=== PATIENT | female | born 1955 | race Caucasian/White ===

== ENCOUNTER 2017-01-11 12:14 | Inpatient (IN) | payer MEDICARE, OTHER ==
[2017-01-11] MEDS ORDERED: SODIUM CHLORIDE 0.9% 1,000 ML IV STA (12:22)
[2017-01-11] MEDS ORDERED: methylPREDNISolone SOD SUCCI 125 MG/2 ML VIAL IV STA (12:22)
[2017-01-11] MEDS ORDERED: ALBUTEROL NEBULIZED 2.5 MG/3 ML INHALATION STA (12:22)
[2017-01-11] MEDS ORDERED: IPRATROPIUM 0.5 MG/2.5 ML NEBU INHALATION STA (12:22)
--- NOTE | 2017-01-11 12:42 | ED ---
General Adult HPI - General Chief complaint: Shortness of Breath Stated complaint: JENNA Time Seen by Provider: 01/11/17 12:22 Source: patient, RN notes reviewed, old records reviewed Mode of arrival: ambulatory Limitations: no limitations - History of Present Illness Initial comments: This is a 61-year-old female here for evaluation of shortness of breath, shows with cough and congestion, positive history of asthma with no recent admissions to travel history no chest pain. Patient states she was having some shortness was last few days worsened today at [employer]ism with swelling of incense. Patient again denies any sick contacts, no travel history - Related Data Home Medications Medication Instructions Recorded Confirmed Aspirin EC [Ecotrin Low Dose] 81 mg PO DAILY 01/11/17 01/11/17 Glucerna Shake 1 can PO TID 01/11/17 01/11/17 Insulin Aspart Protam & Aspart See Protocol SQ ACHS 01/11/17 01/11/17 [NovoLOG MIX 70-30 Flexpen] Insulin NPH Hum/Reg Insulin Hm See Protocol SQ ACHS 01/11/17 01/11/17 [humuLIN 70/30 Kwikpen] Losartan [Cozaar] 50 mg PO DAILY 01/11/17 01/11/17 Allergies Allergy/AdvReac Type Severity Reaction Status Date / Time No Known Allergies Allergy Verified 01/11/17 13:02 Review of Systems ROS Statement: Those systems with pertinent positive or pertinent negative responses have been documented in the HPI. ROS Other: All systems not noted in ROS Statement are negative. Past Medical History Past Medical History: Asthma, Diabetes Mellitus Additional Past Medical History / Comment(s): kidney failure History of Any Multi-Drug Resistant Organisms: None Reported Past Surgical History: Section, Cholecystectomy Past Psychological History: No Psychological Hx Reported Smoking Status: Never smoker Past Alcohol Use History: None Reported Past Drug Use History: None Reported General Exam Limitations: no limitations General appearance: alert, anxious, in distress, obese Head exam: Present: atraumatic, normocephalic, normal inspection Eye exam: Present: normal appearance, PERRL, EOMI. Absent: scleral icterus, conjunctival injection, periorbital swelling ENT exam: Present: normal exam, mucous membranes moist Neck exam: Present: normal inspection. Absent: tenderness, meningismus, lymphadenopathy Respiratory exam: Present: wheezes, accessory muscle use, decreased breath sounds, prolonged expiratory. Absent: respiratory distress, rales, rhonchi, stridor Cardiovascular Exam: Present: regular rate, normal rhythm, normal heart sounds. Absent: systolic murmur, diastolic murmur, rubs, gallop, clicks GI/Abdominal exam: Present: soft, normal bowel sounds. Absent: distended, tenderness, guarding, rebound, rigid Extremities exam: Present: normal inspection, full ROM, normal capillary refill. Absent: tenderness, pedal edema, joint swelling, calf tenderness Back exam: Present: normal inspection Neurological exam: Present: alert, oriented X3, CN II-XII intact Psychiatric exam: Present: normal affect, normal mood Skin exam: Present: warm, dry, intact, normal color. Absent: rash Course Vital Signs 01/11/17 01/11/17 01/11/17 12:15 12:44 12:51 Temperature 99.3 F Pulse Rate 80 85 Respiratory 18 22 Rate Blood Pressure 137/60 O2 Sat by Pulse 92 L Oximetry 01/11/17 01/11/17 13:07 13:45 Temperature Pulse Rate 79 83 Respiratory 18 Rate Blood Pressure 128/60 O2 Sat by Pulse 95 Oximetry - Reevaluation(s) Reevaluation #1: 01/11/17 15:15 Patient had a prolonged breathing treatment, then ambulated to bathroom with oxygen dropping down to 84% is not on home O2 EKG Findings - EKG Comments: EKG Findings:: EKG shows normal sinus rhythm at 76, HI 156, QRS 86, QTC 420 Medical Decision Making - Medical Decision Making 61 female to ED co shortness of breath and severe exertional dyspnea. Hypoxic respiratory failure secondary to COPD. And asthma. Patient will be admitted, x -rays negative for pneumonia - Lab Data Result diagrams: 01/11/17 12:35 01/11/17 12:35 Lab Results 01/11/17 01/11/17 01/11/17 Range/Units 12:35 12:35 12:35 WBC 10.9 H (3.8-10.6) k/uL RBC 4.30 (3.80-5.40) m/uL Hgb 13.4 (11.4-16.0) gm/dL Hct 40.0 (34.0-46.0) % MCV 93.0 (80.0-100.0) fL MCH 31.1 (25.0-35.0) pg MCHC 33.5 (31.0-37.0) g/dL RDW 14.3 (11.5-15.5) % Plt Count 136 L (150-450) k/uL Neutrophils % 75 % Lymphocytes % 15 % Monocytes % 5 % Eosinophils % 3 % Basophils % 1 % Neutrophils # 8.1 H (1.3-7.7) k/uL Lymphocytes # 1.6 (1.0-4.8) k/uL Monocytes # 0.5 (0-1.0) k/uL Eosinophils # 0.3 (0-0.7) k/uL Basophils # 0.1 (0-0.2) k/uL PT (9.0-12.0) sec INR (<1.1) APTT (22.0-30.0) sec Sodium 135 L (137-145) mmol/L Potassium 4.0 (3.5-5.1) mmol/L Chloride 100 (98-107) mmol/L Carbon Dioxide 24 (22-30) mmol/L Anion Gap 11 mmol/L BUN 16 (7-17) mg/dL Creatinine 0.63 (0.52-1.04) mg/dL Est GFR (MDRD) Af Amer >60 (>60 ml/min/1.73 sqM) Est GFR (MDRD) Non-Af >60 (>60 ml/min/1.73 sqM) Glucose 145 H (74-99) mg/dL Calcium 9.3 (8.4-10.2) mg/dL Magnesium 2.2 (1.6-2.3) mg/dL Total Bilirubin 1.1 (0.2-1.3) mg/dL AST 33 (14-36) U/L ALT 29 (9-52) U/L Alkaline Phosphatase 115 (38-126) U/L Total Creatine Kinase 162 H (30-135) U/L CK-MB (CK-2) 0.7 (0.0-2.4) ng/mL CK-MB (CK-2) Rel Index 0.4 Troponin I <0.012 (0.000-0.034) ng/mL NT-Pro-B Natriuret Pep pg/mL Total Protein 7.0 (6.3-8.2) g/dL Albumin 3.6 (3.5-5.0) g/dL 01/11/17 01/11/17 Range/Units 12:35 12:35 WBC (3.8-10.6) k/uL RBC (3.80-5.40) m/uL Hgb (11.4-16.0) gm/dL Hct (34.0-46.0) % MCV (80.0-100.0) fL MCH (25.0-35.0) pg MCHC (31.0-37.0) g/dL RDW (11.5-15.5) % Plt Count (150-450) k/uL Neutrophils % % Lymphocytes % % Monocytes % % Eosinophils % % Basophils % % Neutrophils # (1.3-7.7) k/uL Lymphocytes # (1.0-4.8) k/uL Monocytes # (0-1.0) k/uL Eosinophils # (0-0.7) k/uL Basophils # (0-0.2) k/uL PT 10.3 (9.0-12.0) sec INR 1.0 (<1.1) APTT 24.4 (22.0-30.0) sec Sodium (137-145) mmol/L Potassium (3.5-5.1) mmol/L Chloride (98-107) mmol/L Carbon Dioxide (22-30) mmol/L Anion Gap mmol/L BUN (7-17) mg/dL Creatinine (0.52-1.04) mg/dL Est GFR (MDRD) Af Amer (>60 ml/min/1.73 sqM) Est GFR (MDRD) Non-Af (>60 ml/min/1.73 sqM) Glucose (74-99) mg/dL Calcium (8.4-10.2) mg/dL Magnesium (1.6-2.3) mg/dL Total Bilirubin (0.2-1.3) mg/dL AST (14-36) U/L ALT (9-52) U/L Alkaline Phosphatase (38-126) U/L Total Creatine Kinase (30-135) U/L CK-MB (CK-2) (0.0-2.4) ng/mL CK-MB (CK-2) Rel Index Troponin I (0.000-0.034) ng/mL NT-Pro-B Natriuret Pep 314 pg/mL Total Protein (6.3-8.2) g/dL Albumin (3.5-5.0) g/dL Critical Care Time Critical Care Time: Yes Total Critical Care Time: 31 Disposition Clinical Impression: Acute exacerbation of chronic obstructive airways disease, Hypoxia Disposition: ADMITTED IP TO THIS HOSP Condition: Fair Referrals: Nadir Marsh MD [Primary Care Provider] - 1-2 days
[2017-01-11 13:09] LABS: Basophils # (A) 0.1 k/uL (0-0.2); Basophils % (A) 1 %; CH 31.1; CHCM 33.7; Eosinophils # (A) 0.3 k/uL (0-0.7); Eosinophils % (A) 3 %; HDW 2.56; HGB 13.4 gm/dL (11.4-16.0); Luc # (Auto) 0.25; Luc % (Auto) 2; Lymphocytes # (A) 1.6 k/uL (1.0-4.8); Lymphocytes % (A) 15 %; MCH 31.1 pg (25.0-35.0); MCHC 33.5 g/dL (31.0-37.0); Mean Platelet Volume 8.5; Monocytes # (A) 0.5 k/uL (0-1.0); Monocytes % (A) 5 %; Neutrophils # (A) 8.1 k/uL (1.3-7.7); Neutrophils % (A) 75 %; RDW 14.3 % (11.5-15.5); WBC 10.9 k/uL (3.8-10.6); WBC (Perox) 10.94
[2017-01-11 13:18] LABS: Partial Thromboplastin Time 24.4 sec (22.0-30.0); Prothrombin Time 10.3 sec (9.0-12.0)
[2017-01-11 13:21] LABS: Creatine Kinase 162 U/L (30-135)
[2017-01-11 13:23] LABS: ALT 29 U/L (9-52); AST 33 U/L (14-36); Alkaline Phosphatase 115 U/L (38-126); Anion Gap 11 mmol/L; Blood Urea Nitrogen 16 mg/dL (7-17); Calcium 9.3 mg/dL (8.4-10.2); Carbon Dioxide 24 mmol/L (22-30); Chloride 100 mmol/L (98-107); Glucose 145 mg/dL (74-99); Magnesium 2.2 mg/dL (1.6-2.3); Non-African American GFR(MDRD) >60 (>60 ml/min/1.73 sqM); Sodium 135 mmol/L (137-145); Total Bilirubin 1.1 mg/dL (0.2-1.3)
[2017-01-11 13:35] LABS: Creatine Kinase MB 0.7 ng/mL (0.0-2.4); Troponin I <0.012 ng/mL (0.000-0.034)
--- NOTE | 2017-01-11 13:44 | XR ---
EXAMINATION TYPE: XR chest 2V DATE OF EXAM: 01/11/2017 1:40 PM COMPARISON: NONE HISTORY: Short of breath TECHNIQUE: Frontal and lateral views of the chest are obtained. FINDINGS: There is no heart failure nor confluent pneumonic infiltrate. There are no hilar masses. C ostophrenic angles are clear. Heart size is normal. There are chest leads. Bony thorax appears intact . There is a small linear density in the anterior lingula left upper lobe. IMPRESSION: Small area of atelectasis in the lingula left upper lobe. Otherwise negative exam. Jody l heart.
[2017-01-11] MEDS: IPRATROPIUM-ALBUTEROL 3 ML NEB INHALATION SCH ×2 (16:10→18:50)
[2017-01-11 16:23] VITALS: BMI 49.8
[2017-01-11 17:18] LABS: Glucose,Whole Blood 252 mg/dL (75-99)
[2017-01-11] MEDS: methylPREDNISolone SOD SUCCI 125 MG/2 ML VIAL IV SCH (17:30)
[2017-01-11] MEDS: SODIUM CHLORIDE 0.9% 1,000 ML IV SCH (17:32)
[2017-01-11] MEDS: INSULIN LISPRO (humaLOG) 300 UNIT/3 ML VIAL SQ SCH ×2 (18:17→22:11)
[2017-01-11] MEDS ORDERED: IPRATROPIUM-ALBUTEROL 3 ML NEB INHALATION PRN (18:53)
[2017-01-11 20:56] LABS: Glucose,Whole Blood 387 mg/dL (75-99)
[2017-01-11] MEDS ORDERED: NON-FORMULARY DRUG (Glucerna Shake 1 CAN) PO SCH (22:00)
[2017-01-12] MEDS: ASPIRIN 81 MG CHEW PO SCH ×2 (02:31→07:37)
[2017-01-12] MEDS: LOSARTAN 50 MG TAB PO SCH ×2 (02:31→07:36)
[2017-01-12] MEDS: methylPREDNISolone SOD SUCCI 125 MG/2 ML VIAL IV SCH ×2 (02:38→06:35)
[2017-01-12 07:41] LABS: Glucose,Whole Blood 408 mg/dL (75-99)
[2017-01-12] MEDS: INSULIN LISPRO (humaLOG) 300 UNIT/3 ML VIAL SQ SCH ×4 (07:57→21:21)
[2017-01-12] MEDS: IPRATROPIUM-ALBUTEROL 3 ML NEB INHALATION SCH ×4 (08:35→20:21)
[2017-01-12] MEDS ORDERED: NICOTINE 21MG/24HR PATCH TRANSDERM SCH (09:00)
--- NOTE | 2017-01-12 09:37 | HP ---
DATE OF ADMISSION: 01/11/2017 CHIEF COMPLAINT: A 61-year-old white female admitted with shortness of breath for the past 3 to 4 days after inhaling incense at mass on , had worsening shortness of breath and chest pressure, relieved with updraft treatments and IV steroids in the emergency room. She was admitted with cough, congestion, and possible pneumonia and chronic obstructive pulmonary disease exacerbation. We got Pulmonology consult with Dr. Todd and recommendations. No travel history. No sick contacts. She has a history of obesity, and diabetes mellitus and she states asthma. MEDICATIONS INCLUDE: 1. Glycerin shakes. 2. Aspirin 81 daily. 3. NovoLog 70/30. 4. KwikPen twice a day. 5. Cozaar 50 daily. ALLERGIES: Negative. REVIEW OF SYSTEMS: 14 point review of systems negative except for as mentioned in HPI. PAST MEDICAL HISTORY: Diabetes mellitus, asthma, obesity, possibly renal failure in the past. Surgeries: Cholecystectomy, . SOCIAL HISTORY: Never smoked. No alcohol. No illicit drugs. PHYSICAL EXAMINATION: A 61-year-old white female with some cough, congestion, shortness of breath, respiratory rate 16 to 18. PULMONARY: Scattered wheeze x4. CARDIOVASCULAR: S1, S2. : No suprapubic tenderness. HEMATOLOGIC: Negative Homans. GI: Soft, nontender. Ophthalmologic: Pupils equal, round and reactive to light and accommodation. Lungs show transmitted upper airway sounds, scattered wheezes x4, scattered rhonchi. HEART: S1, S2. GI: Soft, nontender. EXTREMITIES: No cyanosis, clubbing, or edema. BACK: Normal inspection. NEUROLOGIC: Alert and oriented x3. PSYCHIATRIC: Fair mood and affect. ENDOCRINE: BMI is over 40. Temperature 99.3, pulse 85, respiratory rate 18 to 20, blood pressure 130s/60s, O2 92%, sodium 135. BNP 314. ASSESSMENT: 1. Acute exacerbation of chronic obstructive pulmonary disease/asthma exacerbation, acute hypoxemia. 2. Tracheobronchitis. 3. Obesity. 4. Diabetes mellitus. 5. Acute, respiratory distress. 6. Atypical chest pain resolved with negative troponins and updraft treatments and steroids. PLAN: Continue steroid taper through the IV, albuterol and Atrovent updrafts. Await pulmonary consultation. IV fluid rehydration.
--- NOTE | 2017-01-12 10:04 | P.PN ---
Subjective 61-year-old female being seen on rounds this morning currently sitting up on the edge of the bed respiratory treatment in progress states breathing feels improved. No cough noted. Patient does have a history of asthma. Denies chest pain denies any dizziness or lightheadedness. Did note the blood sugars are elevated this morning suspect due to steroids patients being treated for an acute exacerbation of COPD Objective - Vital Signs Vital signs: Vital Signs Temp 97.3 F L 01/12/17 07:00 Pulse 80 01/12/17 08:43 Resp 16 01/12/17 09:55 BP 130/60 01/12/17 07:00 Pulse Ox 95 01/12/17 08:35 Intake & Output 01/11/17 01/12/17 01/12/17 18:59 06:59 18:59 Weight 140 kg Other: Voiding Method Toilet Toilet # Voids 1 - Exam Physical exam 61-year-old female sitting up and had a the bed pleasant oriented 3 Lungs essentially clear with adequate air movement no wheezing rales or rhonchi no shortness of breath noted Heart S1-S2 audible and regular Abdomen soft nontender extremities no edema - Labs CBC & Chem 7: 01/11/17 12:35 01/11/17 12:35 Labs: Abnormal Lab Results - Last 24 Hours (Table) 01/11/17 01/11/17 01/12/17 Range/Units 17:14 20:39 07:34 POC Glucose (mg/dL) 252 H 387 H 408 H (75-99) mg/dL Assessment and Plan Plan: Impression Present on admission shortness of breath suspect due to an acute exacerbation of COPD Lifelong nonsmoker Morbid obesity BMI 49 Hyperglycemic episodes suspect steroid-induced Tracheal bronchitis Present on admission atypical chest pain with negative cardiac enzymes Plan titrate the O2 down keep sats greater than 90% DVT and GI prophylaxis Resume home meds as appropriate Taper steroids Continue bronchodilators as ordered Prepped for probable discharge in the next 24 hours Home O2 eval The above dictated assessment and findings were discussed with dr fer Nguyen and the plan of care have been dictated as directed. Marie Desai nurse practitioner acting as a scribe for dr monroe
[2017-01-12 10:48] LABS: Hemoglobin A1C 10.2 % (4.2-6.1)
[2017-01-12] MEDS: ENOXAPARIN 40 MG/0.4 ML SYRINGE SQ SCH (10:57)
[2017-01-12] MEDS: methylPREDNISolone SOD SUCCI 40 MG/ML 1 ML VIAL IV SCH ×2 (10:58→15:39)
[2017-01-12 11:36] LABS: Glucose,Whole Blood 528 mg/dL (75-99)
[2017-01-12] MEDS: INSULN ASP PRT/INSULIN ASPART 100 UNIT/ML 10 ML VIAL SQ SCH ×3 (12:36→21:20)
--- NOTE | 2017-01-12 13:15 | P.CNPUL ---
History of Present Illness Consult date: 01/12/17 Reason for consult: dyspnea, cough, asthma Chief complaint: shortness of breath, asthma exacerbation History of present illness: This is a 61-year-old female with history of underlying asthma. She apparently only uses her rescue inhaler for her asthma. She's never been hospitalized before. The patient came into the emergency room on January 11 complaining of shortness of breath. Her primary doctor is Dr. Mayberry. The patient is feeling a lot better. The patient's steroids have been cut back. The patient's currently on bronchodilators. The patient wasn't coughing. The patient was producing a few small amount of phlegm though when she didn't cough. She was wheezing. No fever no chills. No nausea vomiting or diarrhea. No chest pain or chest discomfort. As I mentioned, her asthma is relatively stable. The nurse practitioner that was taking care of her said that she may be discharged home in the next day or 2. Again feeling much improved just after a couple days of treatment. Steroids have been cut back. Review of Systems A 12 point review of system is positive for shortness breath chest tightness wheezing and cough. Minimal phlegm production any and all. No fever no chills. No nausea vomiting or diarrhea. Again she only took Proventil at home for a rescue medication. Was not on anything for maintenance therapy. Past Medical History Past Medical History: Asthma, Diabetes Mellitus Additional Past Medical History / Comment(s): kidney failure History of Any Multi-Drug Resistant Organisms: None Reported Past Surgical History: Section, Cholecystectomy Past Psychological History: No Psychological Hx Reported Smoking Status: Never smoker Past Alcohol Use History: None Reported Past Drug Use History: None Reported - Past Family History Father Family Medical History: No Reported History Mother Family Medical History: Renal Disease Medications and Allergies Home Medications Medication Instructions Recorded Confirmed Type Aspirin EC [Ecotrin Low Dose] 81 mg PO DAILY 01/11/17 01/11/17 History Glucerna Shake 1 can PO TID 01/11/17 01/11/17 History Insulin Aspart Protam & Aspart 60 unit SQ BID 01/11/17 01/12/17 History [NovoLOG MIX 70-30 Flexpen] Losartan [Cozaar] 50 mg PO DAILY 01/11/17 01/11/17 History INSULIN LISPRO (HumaLOG) [humaLOG] 40 units SQ TID 01/12/17 01/12/17 History Allergies Allergy/AdvReac Type Severity Reaction Status Date / Time demerol Allergy Severe Anaphylaxis Uncoded 01/11/17 19:06 darvocet Allergy Confusion Uncoded 01/11/17 19:07 Physical Exam Osteopathic Statement: *. No significant issues noted on an osteopathic structural exam other than those noted in the History and Physical/Consult. Vitals: Vital Signs Temp Pulse Pulse Pulse Resp BP BP 01/12/17 12:10 72 01/12/17 12:02 68 01/12/17 09:55 16 01/12/17 08:43 80 01/12/17 08:35 80 01/12/17 07:00 97.3 F L 65 16 130/60 01/11/17 21:54 97 F L 85 16 132/60 01/11/17 18:56 72 01/11/17 18:50 72 01/11/17 16:10 01/11/17 16:00 68 18 01/11/17 15:57 99.9 F H 76 18 153/65 01/11/17 15:42 72 20 153/65 01/11/17 15:40 98.1 F 78 18 BP Pulse Ox 01/12/17 12:10 01/12/17 12:02 01/12/17 09:55 01/12/17 08:43 01/12/17 08:35 95 01/12/17 07:00 94 L 01/11/17 21:54 94 L 01/11/17 18:56 01/11/17 18:50 01/11/17 16:10 95 01/11/17 16:00 01/11/17 15:57 95 01/11/17 15:42 93 L 01/11/17 15:40 132/68 Intake and Output 01/11/17 01/12/17 01/12/17 22:59 06:59 14:59 Other: Voiding Method Toilet Toilet # Voids 1 Weight 140 kg No acute distress, oriented 3. Sitting at the bedside. Feeling much improved. HEENT examination is grossly unremarkable. Mucous membranes are moist per no oral lesions. Neck supple. Full range of motion. No adenopathy or thyromegaly. Neck veins are flat. Her graft cardiovascular examination reveals regular rhythm rate. S1 -S2 normal. Not tachycardic. No S3-S4. No murmur. Heart sounds are distant because of body habitus. Pulmonary examination reveals a few scattered wheezes. Breath sounds are diminished. Slight prolongation. No crackles. Not much in the way of rhonchi. Abdomen soft bowel sounds are heard. No masses or tenderness. Extremities are intact. No sinus clubbing or edema. Skin is without rash or lesion. Brief neurologic examination is nonfocal Results - Laboratory Findings CBC and BMP: 01/11/17 12:35 01/11/17 12:35 PT/INR, D-dimer PT 10.3 sec (9.0-12.0) 01/11/17 12:35 INR 1.0 (<1.1) 01/11/17 12:35 Abnormal lab findings: Abnormal Labs 01/11/17 01/11/17 01/12/17 17:14 20:39 07:34 POC Glucose (mg/dL) 252 H 387 H 408 H 01/12/17 11:32 POC Glucose (mg/dL) 528 H - Diagnostic Findings Chest x-ray: image reviewed (Chest x-rays labs medications are all reviewed. Everything to be in order.)
[2017-01-12 17:06] LABS: Glucose,Whole Blood 535 mg/dL (75-99)
--- NOTE | 2017-01-12 17:12 | CDI ---
Linda Berkey [address] [place] [address] ~~~~~~~~~~~~~~~~~~~~~~~~~~~~~~~~~~~~~~~~~~~~~~~~~~~~~~~~~~~ Documentation Clarification Form Date: 01/12/2017 From: Vanessa Myrick RN/CDI Admit Date: 01/11/2017 Patient Name: Amanda Paredes Visit Number: [id number] Dr. Julian Sanz DO Asthma is documented in the ED notes and your pulmonary consult. Patient history/risk factors: Asthma, Diabetes Mellitus Clinical Indicators: Complains of shortness of breath, chest tightness, wheezing and couth. Chest x-ray: Negative Vital Signs: 137/60 80 138 99.3 92 % RA Other Clinical Indicators: Ambulated to bathroom with oxygen dropping down to 84 % (Per ED evaluation) Treatment: Solu-Medrol IV (taper) Duonebs/Inhalation per orders Monitor labs Monitor O2 Sat's (titrate) In your professional opinion, can you please further specify the Acute Asthma Exacerbation, if known? With: Acute lower respiratory infection COPD (specify with or without exacerbation) Chronic obstructive bronchitis Other, please specify Unable to determine Severity of Asthma Exacerbation Mild intermittent Mild persistent Moderate persistent Severe persistent Other, please specify Unable to determine Form or Type Cough variant Childhood Exercise induced bronchospasm Extrinsic allergic Idiosyncratic Intrinsic nonallergic Late-onset Mixed Other, please specify Unable to determine Please document in your progress notes in order to capture severity of illness and risk of mortality. Include clinical findings that support your diagnosis. FYI: Press F11 to launch patient chart. Place X here if this finding has no clinical significance, is not applicable or if you are not able to provide any additional documentation. MTDD
[2017-01-12] MEDS: SODIUM CHLORIDE 0.9% 1,000 ML IV SCH (18:50)
[2017-01-12 20:24] LABS: Glucose,Whole Blood 469 mg/dL (75-99)
[2017-01-12] MEDS: MONTELUKAST 10 MG TAB PO SCH (21:21)
[2017-01-12] MEDS: FAMOTIDINE 20 MG TAB PO SCH (21:21)
[2017-01-13] MEDS: methylPREDNISolone SOD SUCCI 40 MG/ML 1 ML VIAL IV SCH ×2 (00:31→07:53)
[2017-01-13] MEDS: INSULIN LISPRO (humaLOG) 300 UNIT/3 ML VIAL SQ SCH ×3 (02:10→17:15)
[2017-01-13 02:11] LABS: Glucose,Whole Blood 467 mg/dL (75-99)
[2017-01-13 07:06] LABS: Glucose,Whole Blood 452 mg/dL (75-99)
[2017-01-13] MEDS ORDERED: INSULIN LISPRO (humaLOG) 300 UNIT/3 ML VIAL SQ SCH (07:30)
[2017-01-13] MEDS: IPRATROPIUM-ALBUTEROL 3 ML NEB INHALATION SCH ×4 (07:37→20:22)
[2017-01-13] MEDS: INSULN ASP PRT/INSULIN ASPART 100 UNIT/ML 10 ML VIAL SQ SCH ×2 (07:52→18:23)
[2017-01-13] MEDS: ASPIRIN 81 MG CHEW PO SCH (07:53)
[2017-01-13] MEDS: LOSARTAN 50 MG TAB PO SCH (07:53)
[2017-01-13] MEDS: ENOXAPARIN 40 MG/0.4 ML SYRINGE SQ SCH (07:54)
[2017-01-13 10:13] LABS: Glucose,Whole Blood 463 mg/dL (75-99)
--- NOTE | 2017-01-13 10:50 | P.DS ---
Providers Date of admission: 01/11/17 15:11 Expected date of discharge: 01/15/17 Attending physician: Nadir Monroe Consults: Dr. Sanz pulmonary [facility] Course: 61-year-old female presented on the day of admission to the emergency room to be evaluated for a chief complaint of developing shortness of breath. Patient has not had any prior hospitalizations for treatment of asthma. Patient did report in the emergency room that over the last several days prior to coming into the emergency room had been feeling short of breath. Patient seemed to think that it occurred over the last few days and had gotten worse when she was at [employer] had been smelling and been exposed to incense. Subsequently the patient came into the emergency room to be evaluated was admitted to the services of the attending pulmonary consultation obtained patient was started on a bronchodilator IV steroids antibiotics and inhaled course steroids. The steroids IV Solu-Medrol needed to be tapered quickly secondary to patient not tolerating them patient stated that they made her feel anxious nervous did not like how they made her feel was asking for them to be stopped patient received 4 doses of IV Solu-Medrol then stopped. Patient did develop episodes of hyperglycemia this was addressed per protocol. It was noted that the patient's hemoglobin A1c was elevated to 10.2. Patient was treated by pulmonology and treated for an acute exacerbation of asthma. Patient's symptoms significantly improved patient was felt to be hemodynamically stable and appropriate proceed with a discharge to home patient was followed by pulmonology service recommendations reviewed noted and appreciated. Patient was going to be followed in the outpatient setting by pulmonology group patient was asking about ALLERGY testing this could be done in 's office. Additionally patient would need pulmonary function test to be done and probably would need to be on maintenance drug such as Singulair. Patient was felt to be stable and appropriate to proceed with a discharge Impression discharge diagnosis Present on admission shortness of breath due to acute mild intermittent asthma exacerbation unable to determine the type Present on admission shortness of breath suspect due to an acute exacerbation asthma Lifelong nonsmoker Morbid obesity BMI 49 Hyperglycemic episodes suspect steroid-induced Tracheabronchitis Present on admission atypical chest pain with negative cardiac enzymes Present on admission hypoxic respiratory failure resolved suspect due to acute exacerbation COPD with exacerbation asthma The above dictated assessment and findings were discussed with dr fer Nguyen and the plan of care have been dictated as directed. Marie Desai nurse practitioner acting as a scribe for dr monroe Patient Condition at Discharge: Fair Plan - Discharge Summary New Discharge Prescriptions: Budesonide/Formoterol Fumarate [Symbicort 80-4.5 Mcg Inhaler] 2 puff INHALATION BID #1 inhaler Doxycycline Hyclate [Vibramycin] 100 mg PO BID #14 cap Ipratropium-Albuterol Nebulize [Duoneb 0.5 mg-3 mg/3 ml Soln] 3 ml INHALATION RT -Q2H PRN #120 ampul.neb PRN Reason: Shortness Of Breath Or Wheezing Montelukast [Singulair] 10 mg PO HS #30 tab predniSONE 40 mg PO DAILY #6 tab Discharge Medication List Aspirin EC [Ecotrin Low Dose] 81 mg PO DAILY 01/11/17 [History] Glucerna Shake 1 can PO TID 01/11/17 [History] Insulin Aspart Protam & Aspart [NovoLOG MIX 70-30 Flexpen] 60 unit SQ BID [History] Losartan [Cozaar] 50 mg PO DAILY 01/11/17 [History] INSULIN LISPRO (HumaLOG) [humaLOG] 40 units SQ TID 01/12/17 [History] Budesonide/Formoterol Fumarate [Symbicort 80-4.5 Mcg Inhaler] 2 puff INHALATION BID #1 inhaler 01/15/17 [Rx] Doxycycline Hyclate [Vibramycin] 100 mg PO BID #14 cap 01/15/17 [Rx] Ipratropium-Albuterol Nebulize [Duoneb 0.5 mg-3 mg/3 ml Soln] 3 ml INHALATION RT -Q2H PRN #120 ampul.neb 01/15/17 [Rx] Montelukast [Singulair] 10 mg PO HS #30 tab 01/15/17 [Rx] predniSONE 40 mg PO DAILY #6 tab 01/15/17 [Rx] Follow up Appointment(s)/Referral(s): Nadir Monroe MD [Primary Care Provider] - 1-2 days Tonny Sanz DO [Doctor of Osteopathic Medicine] - 1 Week Discharge Disposition: HOME SELF-CARE
[2017-01-13 11:10] LABS: Glucose,Whole Blood 408 mg/dL (75-99)
[2017-01-13] MEDS: DOXYCYCLINE 50 MG CAP PO SCH ×2 (12:57→20:08)
--- NOTE | 2017-01-13 13:19 | P.PN ---
Subjective Progress note dated 01/13/2017 This is a 61-year-old female with obesity diabetes and asthma. Heretofore, her asthma has been relatively mild. She usually uses just a rescue inhaler when necessary. Denies previous admissions for asthma. On this admission, she apparently in inhale some incense and it causes her asthma to be active. She's feeling better. Still has wheezing and chest tightness. Was hoping to go home today. We told the primary service that she should probably stay 1 more day. Still coughing a bit. So wheezing a bit. Still congested. She seemed better yesterday than she did today. Objective - Vital Signs Vital signs: Vital Signs Temp 97.5 F L 01/13/17 07:00 Pulse 66 01/13/17 12:07 Resp 18 01/13/17 12:07 BP 131/64 01/13/17 07:00 Pulse Ox 92 L 01/13/17 07:37 Intake & Output 01/12/17 01/13/17 01/13/17 18:59 06:59 18:59 Intake Total 140 660 Balance 140 660 Weight 140 kg Intake: Intake, IV Titration 140 220 Amount Sodium Chloride 0.9% 1, 140 220 000 ml @ 20 mls/hr IV . Q24H OSMIN Rx#:[id number] Oral 440 Other: Voiding Method Toilet Toilet Toilet # Voids 1 3 # Bowel Movements 1 - Exam No acute distress, oriented 3. No respiratory distress. No audible wheezing. HEENT examination is grossly unremarkable. Mucous membranes are moist. No oral lesions. Neck supple. Full range of motion. No adenopathy or thyromegaly. Neck veins are flat. Cardiovascular examination reveals regular rhythm rate. Heart sounds are distant. S1-S2 normal. No S3-S4 murmur. Lungs reveal some coarse inspiratory and expiratory rhonchi and wheezes. She has to sounds were seen yesterday proved. Moving less air. This prolongation on forced maneuver. Abdomen obese bowel sounds are heard. Extremities are intact. There is no edema. Skin is without rash or lesion. Neurologic examination is pretty nonfocal. - Labs CBC & Chem 7: 01/11/17 12:35 01/11/17 12:35 Labs: Abnormal Lab Results - Last 24 Hours (Table) 01/12/17 01/12/17 01/13/17 Range/Units 17:02 20:23 02:02 POC Glucose (mg/dL) 535 H 469 H 467 H (75-99) mg/dL 01/13/17 01/13/17 01/13/17 Range/Units 07:01 10:02 11:08 POC Glucose (mg/dL) 452 H 463 H 408 H (75-99) mg/dL Assessment and Plan (1) Asthma exacerbation Status: Acute (2) Acute exacerbation of chronic obstructive airways disease Status: Acute (3) Hypoxia Status: Acute Plan: Plan Would continue the patient on steroids bronchodilators antibiotics. Probably best to keep her in 1 more day. We'll continue to follow. We'll make sure that she's ready to be discharged tomorrow. Hopefully she'll improve overnight. She is on all the report medications. We'll continue to follow him. Time with Patient: Less than 30
--- NOTE | 2017-01-13 14:15 | P.PN ---
Subjective 61-year-old female being seen on rounds. Patient is sitting up in bed states breathing feels slightly improved. No cough noted. Did note the patient is audibly wheezing this morning. Did note pulmonology's recommendations continue steroid bronchodilator antibiotics and keep patient for another 24 hours. Plan of care discussed with the patient receptive to the plan patient does report the updraft treatments "seemed to help" did note the patient's blood sugars were elevated this morning 450 to 463 being addressed by protocol Objective - Vital Signs Vital signs: Vital Signs Temp 97.5 F L 01/13/17 07:00 Pulse 66 01/13/17 12:07 Resp 18 01/13/17 12:07 BP 131/64 01/13/17 07:00 Pulse Ox 92 L 01/13/17 07:37 Intake & Output 01/12/17 01/13/17 01/13/17 18:59 06:59 18:59 Intake Total 140 660 Balance 140 660 Weight 140 kg Intake: Intake, IV Titration 140 220 Amount Sodium Chloride 0.9% 1, 140 220 000 ml @ 20 mls/hr IV . Q24H OSMIN Rx#:[id number] Oral 440 Other: Voiding Method Toilet Toilet Toilet # Voids 1 3 # Bowel Movements 1 - Exam Physical exam 61-year-old female sitting up edge of bed pleasant oriented 3 Lungs adequate air movement audible wheezing noted no shortness of breath noted no cough noted Heart S1-S2 audible and regular Abdomen soft nontender extremities no edema - Labs CBC & Chem 7: 01/11/17 12:35 01/11/17 12:35 Labs: Abnormal Lab Results - Last 24 Hours (Table) 01/12/17 01/12/17 01/13/17 Range/Units 17:02 20:23 02:02 POC Glucose (mg/dL) 535 H 469 H 467 H (75-99) mg/dL 01/13/17 01/13/17 01/13/17 Range/Units 07:01 10:02 11:08 POC Glucose (mg/dL) 452 H 463 H 408 H (75-99) mg/dL Assessment and Plan Plan: Impression Acute exacerbation asthma Present on admission shortness of breath suspect due to an acute exacerbation of COPD Lifelong nonsmoker Morbid obesity BMI 49 Hyperglycemic episodes suspect steroid-induced Tracheal bronchitis Present on admission atypical chest pain with negative cardiac enzymes Present on admission acute hypoxic respiratory insufficiency suspect due to an acute exacerbation of COPD with asthma resolved Plan DVT and GI prophylaxis Resume home meds as appropriate Taper steroids Continue bronchodilators as ordered Home O2 eval The above dictated assessment and findings were discussed with dr fer Nguyen and the plan of care have been dictated as directed. Marie Desai nurse practitioner acting as a scribe for dr monroe
[2017-01-13 17:12] LABS: Glucose,Whole Blood 367 mg/dL (75-99)
[2017-01-13] MEDS: FAMOTIDINE 20 MG TAB PO SCH (20:07)
[2017-01-13] MEDS: MONTELUKAST 10 MG TAB PO SCH (20:07)
[2017-01-13] MEDS: SYMBICORT 80-4.5 MCG INHALER INHALATION SCH ×2 (20:22)
[2017-01-13 20:27] LABS: Glucose,Whole Blood 278 mg/dL (75-99)
[2017-01-14] MEDS: SODIUM CHLORIDE 0.9% 1,000 ML IV SCH ×2 (05:00→17:58)
[2017-01-14] MEDS: ASPIRIN 81 MG CHEW PO SCH (06:36)
[2017-01-14 07:01] LABS: Glucose,Whole Blood 99 mg/dL (75-99)
[2017-01-14] MEDS: INSULN ASP PRT/INSULIN ASPART 100 UNIT/ML 10 ML VIAL SQ SCH ×2 (07:43→20:16)
[2017-01-14] MEDS: INSULIN LISPRO (humaLOG) 300 UNIT/3 ML VIAL SQ SCH ×3 (07:50→17:55)
[2017-01-14] MEDS: DOXYCYCLINE 50 MG CAP PO SCH ×2 (07:53→20:17)
[2017-01-14] MEDS: ENOXAPARIN 40 MG/0.4 ML SYRINGE SQ SCH (07:53)
[2017-01-14] MEDS: predniSONE 20 MG TAB PO SCH (07:53)
[2017-01-14] MEDS: LOSARTAN 50 MG TAB PO SCH (07:54)
[2017-01-14] MEDS: IPRATROPIUM-ALBUTEROL 3 ML NEB INHALATION SCH ×4 (07:56→20:06)
[2017-01-14] MEDS: SYMBICORT 80-4.5 MCG INHALER INHALATION SCH ×2 (07:56→20:06)
[2017-01-14 11:07] LABS: Glucose,Whole Blood 113 mg/dL (75-99)
--- NOTE | 2017-01-14 13:30 | P.PN ---
Subjective 59-year-old female sitting up on the edge of the bed this morning being seen in follow-up visit. Patient states breathing feels improved. Did note the patient has a few bilateral prolonged expiratory wheezing noted no cough noted Objective - Vital Signs Vital signs: Vital Signs Temp 97.7 F 01/14/17 07:00 Pulse 68 01/14/17 11:37 Resp 20 01/14/17 07:00 BP 154/74 01/14/17 07:00 Pulse Ox 97 01/14/17 07:56 Intake & Output 01/13/17 01/14/17 01/14/17 18:59 06:59 18:59 Intake Total 640 Balance 640 Intake: Oral 640 Other: Voiding Method Toilet Toilet Toilet # Voids 3 1 # Bowel Movements 1 - Exam Physical exam 61-year-old female sitting up on the edge of the bed does not appear in acute distress Lungs a few prolonged expiratory wheezing otherwise adequate air movement on room air sats are 97% Heart S1-S2 audible and regular Abdomen soft nontender reports no nausea vomiting Extremities no edema noted - Labs CBC & Chem 7: 01/11/17 12:35 01/11/17 12:35 Labs: Abnormal Lab Results - Last 24 Hours (Table) 01/13/17 01/13/17 01/14/17 Range/Units 17:03 20:24 11:01 POC Glucose (mg/dL) 367 H 278 H 113 H (75-99) mg/dL Assessment and Plan Plan: Impression Acute exacerbation asthma Present on admission shortness of breath suspect due to an acute exacerbation of COPD Lifelong nonsmoker Morbid obesity BMI 49 Hyperglycemic episodes suspect steroid-induced Tracheal bronchitis Present on admission atypical chest pain with negative cardiac enzymes Present on admission acute hypoxic respiratory insufficiency suspect due to an acute exacerbation of COPD with asthma resolved Plan DVT and GI prophylaxis Resume home meds as appropriate Taper steroids Continue bronchodilators as ordered Home O2 eval Prepped for probable discharge soon The above dictated assessment and findings were discussed with dr monroe Impression and the plan of care have been dictated as directed. Marie Desai nurse practitioner acting as a scribe for dr monroe
--- NOTE | 2017-01-14 15:49 | P.PN ---
Subjective Progress note dated 01/13/2017 This is a 61-year-old female with obesity diabetes and asthma. Heretofore, her asthma has been relatively mild. She usually uses just a rescue inhaler when necessary. Denies previous admissions for asthma. On this admission, she apparently in inhale some incense and it causes her asthma to be active. She's feeling better. Still has wheezing and chest tightness. Was hoping to go home today. We told the primary service that she should probably stay 1 more day. Still coughing a bit. So wheezing a bit. Still congested. She seemed better yesterday than she did today. Progress note dated 01/14/2017 61-year-old female with history of obesity diabetes and asthma. Her asthma has been relatively well controlled and she only uses her rescue inhaler when necessary. More recently, grasses been much more active. She's had coughing wheezing and shortness of breath. She probably will be discharged home tomorrow. She's feeling much much better. She'll need to follow up with us in the office. She asked about ALLERGY testing. That should be done in our office. She'll also need a complete pulmonary function test and probably will end up on some sort of maintenance drug such as Singulair and/or a combination inhaler with a long-acting beta agonist and inhaled corticosteroid. Objective - Vital Signs Vital signs: Vital Signs Temp 97.7 F 01/14/17 07:00 Pulse 68 01/14/17 11:37 Resp 20 01/14/17 07:00 BP 154/74 01/14/17 07:00 Pulse Ox 97 01/14/17 07:56 Intake & Output 01/13/17 01/14/17 01/14/17 18:59 06:59 18:59 Intake Total 640 Balance 640 Intake: Oral 640 Other: Voiding Method Toilet Toilet Toilet # Voids 3 1 # Bowel Movements 1 - Exam No acute distress, oriented 3. No respiratory distress. No audible wheezing. HEENT examination is grossly unremarkable. Mucous membranes are moist. No oral lesions. Neck supple. Full range of motion. No adenopathy or thyromegaly. Neck veins are flat. Cardiovascular examination reveals regular rhythm rate. Heart sounds are distant. S1-S2 normal. No S3-S4 murmur. Lungs reveal some coarse inspiratory and expiratory rhonchi and wheezes. She has to sounds were seen yesterday proved. Moving less air. This prolongation on forced maneuver. Abdomen obese bowel sounds are heard. Extremities are intact. There is no edema. Skin is without rash or lesion. Neurologic examination is pretty nonfocal. - Labs CBC & Chem 7: 01/11/17 12:35 01/11/17 12:35 Labs: Abnormal Lab Results - Last 24 Hours (Table) 01/13/17 01/13/17 01/14/17 Range/Units 17:03 20:24 11:01 POC Glucose (mg/dL) 367 H 278 H 113 H (75-99) mg/dL Assessment and Plan (1) Asthma exacerbation Status: Acute (2) Acute exacerbation of chronic obstructive airways disease Status: Acute (3) Hypoxia Status: Acute Plan: Plan Would continue the patient on steroids bronchodilators antibiotics. Probably best to keep her in 1 more day. We'll continue to follow. We'll make sure that she's ready to be discharged tomorrow. Hopefully she'll improve overnight. She is on all the report medications. We'll continue to follow him. Plan dated 01/14/2017 The patient will likely be discharged home tomorrow. She is feeling better. Not back to baseline for sure. We talked about a number things including ALLERGY testing which could be done in the office. If she qualifies, she may be a candidate for ALLERGY shots and/or Xolair shots. In addition she should have complete pulmonary function test so we can better stage her asthma. Finally, she probably needs something for maintenance therapy including Singulair and/or a combination inhaler with an inhaled corticosteroid and long- acting beta agonist. Time with Patient: Less than 30
[2017-01-14 17:12] LABS: Glucose,Whole Blood 230 mg/dL (75-99)
[2017-01-14 20:16] LABS: Glucose,Whole Blood 305 mg/dL (75-99)
[2017-01-14] MEDS: MONTELUKAST 10 MG TAB PO SCH (20:17)
[2017-01-14] MEDS: FAMOTIDINE 20 MG TAB PO SCH (20:17)
[2017-01-15 02:03] LABS: Glucose,Whole Blood 184 mg/dL (75-99)
[2017-01-15] MEDS: SYMBICORT 80-4.5 MCG INHALER INHALATION SCH (07:18)
[2017-01-15] MEDS: IPRATROPIUM-ALBUTEROL 3 ML NEB INHALATION SCH ×2 (07:18→11:28)
[2017-01-15 07:36] LABS: Glucose,Whole Blood 261 mg/dL (75-99)
[2017-01-15 08:05] VITALS: RESP 18
[2017-01-15] MEDS: INSULIN LISPRO (humaLOG) 300 UNIT/3 ML VIAL SQ SCH ×2 (08:21→12:05)
[2017-01-15] MEDS: INSULN ASP PRT/INSULIN ASPART 100 UNIT/ML 10 ML VIAL SQ SCH (08:26)
[2017-01-15] MEDS: LOSARTAN 50 MG TAB PO SCH (08:27)
[2017-01-15] MEDS: DOXYCYCLINE 50 MG CAP PO SCH (08:27)
[2017-01-15] MEDS: ASPIRIN 81 MG CHEW PO SCH (08:27)
[2017-01-15] MEDS: ENOXAPARIN 40 MG/0.4 ML SYRINGE SQ SCH (08:27)
[2017-01-15] MEDS: predniSONE 20 MG TAB PO SCH (08:27)
[2017-01-15 11:17] LABS: Glucose,Whole Blood 172 mg/dL (75-99)
[2017-01-15 15:47] VITALS: BP 149/72; PULSE 73; TEMP 98
--- NOTE | 2017-01-15 15:54 | P.PN ---
Subjective Progress note dated 01/13/2017 This is a 61-year-old female with obesity diabetes and asthma. Heretofore, her asthma has been relatively mild. She usually uses just a rescue inhaler when necessary. Denies previous admissions for asthma. On this admission, she apparently in inhale some incense and it causes her asthma to be active. She's feeling better. Still has wheezing and chest tightness. Was hoping to go home today. We told the primary service that she should probably stay 1 more day. Still coughing a bit. So wheezing a bit. Still congested. She seemed better yesterday than she did today. Progress note dated 01/14/2017 61-year-old female with history of obesity diabetes and asthma. Her asthma has been relatively well controlled and she only uses her rescue inhaler when necessary. More recently, grasses been much more active. She's had coughing wheezing and shortness of breath. She probably will be discharged home tomorrow. She's feeling much much better. She'll need to follow up with us in the office. She asked about ALLERGY testing. That should be done in our office. She'll also need a complete pulmonary function test and probably will end up on some sort of maintenance drug such as Singulair and/or a combination inhaler with a long-acting beta agonist and inhaled corticosteroid. Progress note dated 01/15/2017 Very pleasant 61-year-old female with a history of obesity diabetes and asthma. Her asthma has been relatively well controlled. She was admitted to the hospital on this occasion for an asthma exacerbation. He was on using a rescue inhaler at home. She asked for card. She states she will come see me in the office after discharge. She states she would like some ALLERGY testing. Feeling much better today. Would like to go home. We notified the case management specialist working with the primary service from our perspective she could go. We did ask her to come see me in the office after discharge. Objective - Vital Signs Vital signs: Vital Signs Temp 98.0 F 01/15/17 15:00 Pulse 73 01/15/17 15:00 Resp 18 01/15/17 15:00 BP 149/72 01/15/17 15:00 Pulse Ox 90 L 01/15/17 15:00 Intake & Output 01/14/17 01/15/17 01/15/17 18:59 06:59 18:59 Intake Total 50 Balance 50 Intake: Oral 50 Other: Voiding Method Toilet Toilet Toilet # Voids 2 1 - Exam No acute distress, oriented 3. No respiratory distress. No audible wheezing. HEENT examination is grossly unremarkable. Mucous membranes are moist. No oral lesions. Neck supple. Full range of motion. No adenopathy or thyromegaly. Neck veins are flat. Cardiovascular examination reveals regular rhythm rate. Heart sounds are distant. S1-S2 normal. No S3-S4 murmur. Lungs reveal some mild coarse rhonchi. Breath sounds are equal. Breath sounds have improved. No expiratory wheezing. There is slight prolongation. No crackles as mentioned. Abdomen obese bowel sounds are heard. Extremities are intact. There is no edema. Skin is without rash or lesion. Neurologic examination is pretty nonfocal. - Labs CBC & Chem 7: 01/11/17 12:35 01/11/17 12:35 Labs: Abnormal Lab Results - Last 24 Hours (Table) 01/14/17 01/14/17 01/15/17 Range/Units 17:10 20:14 02:01 POC Glucose (mg/dL) 230 H 305 H 184 H (75-99) mg/dL 01/15/17 01/15/17 Range/Units 07:20 11:13 POC Glucose (mg/dL) 261 H 172 H (75-99) mg/dL Assessment and Plan (1) Asthma exacerbation Status: Acute (2) Acute exacerbation of chronic obstructive airways disease Status: Acute (3) Hypoxia Status: Acute Plan: Plan Would continue the patient on steroids bronchodilators antibiotics. Probably best to keep her in 1 more day. We'll continue to follow. We'll make sure that she's ready to be discharged tomorrow. Hopefully she'll improve overnight. She is on all the report medications. We'll continue to follow him. Plan dated 01/14/2017 The patient will likely be discharged home tomorrow. She is feeling better. Not back to baseline for sure. We talked about a number things including ALLERGY testing which could be done in the office. If she qualifies, she may be a candidate for ALLERGY shots and/or Xolair shots. In addition she should have complete pulmonary function test so we can better stage her asthma. Finally, she probably needs something for maintenance therapy including Singulair and/or a combination inhaler with an inhaled corticosteroid and long- acting beta agonist. Plan dated 01/15/2017 The patient can go home. She's not completely clear. She does have some diffuse bilateral rhonchi. She should take it easy. I did give her my card. She states she'll come and see me in the next week or 2. She will need pulmonary function test. She also requests testing. Additional recommendations suggestions are forthcoming. Prognosis is guarded. Time with Patient: Less than 30
== END 2017-01-15 16:20 | disposition home or self-care (01) | DRG 190 ==
LOC: EC 12:14 → 5MS5E 15:11
PROVIDERS: ADMIT Family Medicine; ATTEND Family Medicine
DX: J44.0 Chronic obstructive pulmonary disease with (acute) lower respiratory infection (principal); J96.01 Acute respiratory failure with hypoxia; Z68.42 Body mass index [BMI] 45.0-49.9, adult; E11.65 Type 2 diabetes mellitus with hyperglycemia; J45.21 Mild intermittent asthma with (acute) exacerbation; E66.01 Morbid (severe) obesity due to excess calories; J44.1 Chronic obstructive pulmonary disease with (acute) exacerbation; J40 Bronchitis, not specified as acute or chronic; T38.0X5A Adverse effect of glucocorticoids and synthetic analogues, initial encounter; Z90.49 Acquired absence of other specified parts of digestive tract; Z79.82 Long term (current) use of aspirin; Z79.4 Long term (current) use of insulin; Z79.899 Other long term (current) drug therapy; Y92.230 Patient room in hospital as the place of occurrence of the external cause
CPT/HCPCS: 36415; 71020; 80053; 82550; 82553; 83036; 83735; 83880; 84443; 84484; 85025; 85610; 85730; 93005; 94640; 94760; 96361; 96374; 99291

== ENCOUNTER → 2017-03-05 | Outpatient (CLI) | payer MEDICARE, OTHER ==
--- NOTE | 2017-03-05 15:58 | CT ---
EXAMINATION TYPE: CT chest wo con DATE OF EXAM: 03/05/2017 COMPARISON: Radiograph 01/11/2017 HISTORY: 62-year-old female with asthma and cough TECHNIQUE: High-resolution CT scanning of the chest utilizing 1 mm slice thickness and 1 cm gap. No I V contrast. Exam performed per HRCT protocol. Patient could not tolerate prone imaging. CT DLP: 148 mGycm Automated exposure control for dose reduction was used. FINDINGS: The heart is normal size without pericardial effusion. Coronary vessel calcification are present and are a marker for coronary artery disease. Scattered nonenlarged mediastinal lymph nodes. No thoracic lymphadenopathy by HRCT technique. There is mild diffuse bronchial wall thickening. No honeycombing, cystic change, bronchiectasis, cent rilobular nodules, or tree-in-bud opacities. No thickening of the bronchovascular bundles. Some focal patchy opacity at the anterior right midlung, axial image 25. No other consolidation or pl eural effusion. HRCT technique limits assessment for pulmonary nodules. Visualized upper abdomen shows cholecystectomy clips. Bones: Endplate spondylosis mid to lower thoracic spine. No osseous destructive process. IMPRESSION: 1. MILD DIFFUSE BRONCHIAL WALL THICKENING COULD REFLECT BRONCHITIS OR CHRONIC ASTHMA. 2. FOCAL PATCHY ANTERIOR RIGHT MID LUNG OPACITY COULD REPRESENT AN AREA OF ATELECTASIS/SCAR OR DEVELO PING INFILTRATE. CORRELATE WITH PATIENT'S SYMPTOMS. 3. NO HRCT FINDINGS OF CHRONIC INTERSTITIAL LUNG DISEASE.
== END | disposition home or self-care (01) ==
LOC: RADCTMAIN 11:58
PROVIDERS: ATTEND Internal Medicine Critical Care Medicine
DX: R91.8 Other nonspecific abnormal finding of lung field (principal); J98.09 Other diseases of bronchus, not elsewhere classified
CPT/HCPCS: 71250

== ENCOUNTER 2017-10-19 06:58 | Day surgery (SDC) | payer MEDICARE, OTHER ==
[2017-10-14 15:27] VITALS: BMI 49.8
[~2017-10-19 06:58] MED LIST: LACTATED RINGERS 1,000 ML IV SCH
[2017-10-19 07:27] VITALS: RESP 16; TEMP 98
[2017-10-19 07:35] LABS: Glucose,Whole Blood 321 mg/dL (75-99)
[2017-10-19] MEDS ORDERED: PROPOFOL 10 MG/ML 20 ML VIAL IV ONE (07:45)
[2017-10-19] MEDS ORDERED: LIDOCAINE 1% INJ 10MG/ML (20 ML MDV) ONE (07:45)
--- NOTE | 2017-10-19 07:59 | P.GSHP ---
History of Present Illness H&P Date: 10/19/17 Chief Complaint: History of constipation This is a 62-year-old female who presents today for colonoscopy. She's had issues with constipation. Her last colonoscopy was over 5 years ago. Past Medical History Past Medical History: Asthma, Diabetes Mellitus, Deep Vein Thrombosis (DVT), Renal Disease Additional Past Medical History / Comment(s): STAGE 2 KIDNEY DISEASE, HX OF H- PYLORI, DVT LEFT LEG, STATES REACTIVE ASTHMA DUE TO ALLERGIES, BACK PAIN, HX OF PUNCTURED BOWEL DURING COLONOSCOPY IN 2006. , HX OF INJURY LEFT LEG A CHILD WITH 300 + STITCHES. History of Any Multi-Drug Resistant Organisms: None Reported Past Surgical History: Section, Cholecystectomy Additional Past Surgical History / Comment(s): X2. Past Anesthesia/Blood Transfusion Reactions: No Reported Reaction Past Psychological History: No Psychological Hx Reported Smoking Status: Never smoker Past Alcohol Use History: None Reported Additional Past Alcohol Use History / Comment(s): EXPOSURE TO 2ND HAND SMOKE CHILD AND ADULT. Past Drug Use History: None Reported - Past Family History Father Family Medical History: No Reported History Mother Family Medical History: Renal Disease Medications and Allergies Home Medications Medication Instructions Recorded Confirmed Type Aspirin EC [Ecotrin Low Dose] 81 mg PO DAILY 01/11/17 10/19/17 History Losartan [Cozaar] 50 mg PO DAILY 01/11/17 10/19/17 History Budesonide/Formoterol Fumarate 2 puff INHALATION BID #1 inhaler 01/15/17 Rx [Symbicort 80-4.5 Mcg Inhaler] Montelukast [Singulair] 10 mg PO HS #30 tab 01/15/17 10/19/17 Rx Albuterol Nebulizer 1 dose INHALATION DIRECTED PRN 10/14/17 History Albuterol Sulfate [Proair Hfa] 1 - 2 puff INHALATION Q6HR PRN 10/14/17 10/19/17 History Insulin Aspart Protam & Aspart 60 unit SQ AC-TID 10/14/17 10/19/17 History [NovoLOG MIX 70-30 Flexpen] metFORMIN HCL [Glucophage] 500 mg PO DAILY 10/14/17 10/19/17 History Allergies Allergy/AdvReac Type Severity Reaction Status Date / Time erythromycin base AdvReac Unknown States it Verified 10/14/17 15:08 does not help her. demerol Allergy Severe Anaphylaxis Uncoded 10/14/17 15:08 darvocet Allergy Confusion Uncoded 10/14/17 15:08 Surgical - Exam Vital Signs Temp Pulse Resp BP Pulse Ox 98.0 F 75 16 144/67 95 10/19/17 07:19 10/19/17 07:19 10/19/17 07:19 10/19/17 07:19 10/19/17 07:19 - General well developed, no distress - Eyes PERRL - ENT normal pinna - Neck no masses - Respiratory normal expansion - Cardiovascular Rhythm: regular - Abdomen Abdomen: soft, non tender Results - Labs Abnormal Lab Results - Last 24 Hours (Table) 10/19/17 Range/Units 07:26 POC Glucose (mg/dL) 321 H (75-99) mg/dL Assessment and Plan Assessment: Constipation. We'll perform colonoscopy
--- NOTE | 2017-10-19 08:18 | P.OP ---
Date of Procedure: 10/19/17 Preoperative Diagnosis: Constipation Postoperative Diagnosis: Rectal polyp Procedure(s) Performed: Colonoscopy Anesthesia: MAC Surgeon: Winston Carvalho Pathology: other (Rectal polyp) Condition: stable Disposition: PACU Description of Procedure: The patient's placed on the endoscopy table in the lateral position. He received IV sedation. Digital rectal exam was performed which revealed no abnormalities. The flexible colonoscope was then placed patient anus passed throughout the entire colon. The ileocecal valve was visualized. The cecum, ascending and transverse colon appeared normal. In the descending; there was a few scattered diverticula. Scope was then brought back the rectum and a small polyp seen this removed the forcep. Scope was withdrawn for patient.
[2017-10-19 08:23] VITALS: PULSE 72
[2017-10-19 08:29] LABS: Glucose,Whole Blood 320 mg/dL (75-99)
[2017-10-19 08:46] VITALS: BP 149/78
== END 2017-10-19 09:18 | disposition home or self-care (01) ==
LOC: ORWHC2ENDO 06:58
PROVIDERS: ATTEND Surgery
DX: D12.8 Benign neoplasm of rectum (principal); K57.30 Diverticulosis of large intestine without perforation or abscess without bleeding; K59.09 Other constipation; J45.909 Unspecified asthma, uncomplicated; E11.22 Type 2 diabetes mellitus with diabetic chronic kidney disease; N18.2 Chronic kidney disease, stage 2 (mild); Z86.718 Personal history of other venous thrombosis and embolism; Z79.84 Long term (current) use of oral hypoglycemic drugs; Z79.82 Long term (current) use of aspirin; Z79.4 Long term (current) use of insulin; Z79.51 Long term (current) use of inhaled steroids; Z79.899 Other long term (current) drug therapy; Z88.5 Allergy status to narcotic agent; Z88.1 Allergy status to other antibiotic agents; Z77.22 Contact with and (suspected) exposure to environmental tobacco smoke (acute) (chronic)
CPT/HCPCS: 88305; 45380; J2001; J2704

== ENCOUNTER → 2018-01-29 | Outpatient (CLI) | payer MEDICARE, OTHER ==
--- NOTE | 2018-01-29 13:18 | XR ---
EXAMINATION TYPE: XR Hip Complete RT DATE OF EXAM: 01/29/2018 CLINICAL HISTORY: pain TECHNIQUE: AP and frogleg views of the right hip are obtained. COMPARISON: None. FINDINGS: There is no acute fracture/dislocation evident. The joint space appears mildly narrowed. The overlying soft tissue appears unremarkable. IMPRESSION: 1. There is no acute fracture or dislocation. ICD 10 NO FRACTURE, INITIAL EVALUATION
== END | disposition home or self-care (01) ==
LOC: RADXRMAIN 11:06
PROVIDERS: ATTEND Family Medicine
DX: M25.551 Pain in right hip (principal)
CPT/HCPCS: 73502

== ENCOUNTER → 2018-03-24 | Outpatient (CLI) | payer MEDICARE, OTHER ==
--- NOTE | 2018-03-24 11:22 | MR ---
Amanda Paredes EXAMINATION TYPE: MRI left knee without contrast DATE OF EXAM: 03/24/2018 COMPARISON: Outside radiographs 03/05/2018 HISTORY: 63-year-old female with left knee pain TECHNIQUE: Multiplanar, multisequence images left knee are obtained without IV contrast. FINDINGS: The ACL, PCL, and MCL are intact. There is some intermediate signal at the femoral attachment of the LCL proper. LCL complex is otherwise intact. There is an incomplete radial tear at the posterior root of the medial meniscus and some degenerative signal within the remainder of the meniscus. Mild marginal spurring in the medial compartment but wi th relatively maintained articular cartilage volume. Possible subtle oblique tear posterior horn of the lateral meniscus. No displaced meniscal fragment. Degenerative signal extends into the body of the meniscus. Overall preserved lateral compartment maryam cular cartilage volume. Minimal superficial cartilage irregularity along the patellar articular cartilage with overall preser endy volume. Some focal intermediate signal along the deep proximal patellar tendon fibers compatible with tendino sis. Extensor mechanism otherwise intact. Small knee joint effusion with trace early developing Castillo's cyst. Some nonspecific scattered subcut aneous soft tissue swelling. Normal popliteal artery anatomy. Moderate diffuse muscular atrophy. No suspicious bone marrow replacement. IMPRESSION: 1. Incomplete but large radial tear posterior root of the medial meniscus. Degenerative signal extend s throughout the remainder of the meniscus. 2. Possible tiny oblique tear posterior horn of the lateral meniscus with degenerative signal extendi ng into the body. 3. Mild proximal patellar tendinosis and minimal superficial cartilage irregularity along the patella . 4. Low-grade versus chronic sprain of the proximal LCL proper. 5. Small knee joint effusion and moderate generalized muscular atrophy.
== END | disposition home or self-care (01) ==
LOC: RADMRIMAIN 10:33
PROVIDERS: ATTEND Orthopaedic Surgery
DX: S83.242A Other tear of medial meniscus, current injury, left knee, initial encounter (principal); M76.52 Patellar tendinitis, left knee; M94.8X6 Other specified disorders of cartilage, lower leg; M62.562 Muscle wasting and atrophy, not elsewhere classified, left lower leg

== ENCOUNTER 2018-04-13 16:16 | Emergency (ER) | payer MEDICARE, OTHER ==
[2018-04-13 16:46] VITALS: RESP 18
--- NOTE | 2018-04-13 17:28 | XR ---
EXAMINATION TYPE: XR knee complete RT DATE OF EXAM: 04/13/2018 COMPARISON: NONE HISTORY: Knee pain TECHNIQUE: 3 views FINDINGS: There is comminuted fracture of the patella. There is displacement up to 7 mm. There is spu rring at the tibial tubercle. Joint spaces are fairly normal. Femur and tibia appear intact. IMPRESSION: Comminuted patella fracture with mild displacement.
[2018-04-13] MEDS ORDERED: HYDROcodone/APAP 5-325MG 1 EACH TAB PO STA (17:39)
--- NOTE | 2018-04-13 17:50 | ED ---
Lower Extremity Injury HPI - General Chief Complaint: Extremity Injury, Lower Stated Complaint: knee pain Time Seen by Provider: 04/13/18 16:48 Source: patient Mode of arrival: EMS Limitations: no limitations - History of Present Illness Initial Comments: This is a 63-year-old female past medical history of renal disease, DVT and diabetes who presents today for chief complaint of right knee pain after falling. That around 2:50 PM this afternoon she was at a [employer] sale when she felt herself trip over her shoelace landing on her right knee. Patient denies hitting her head, loss consciousness, chest pain or short of breath prior to the fall, injury to the ankle or hip, patient denies hand or wrist pain bilaterally, numbness, loss of sensation, loss extremity, posterior dislocation , tingling, paresthesias. She does admit to right knee swelling. EMS was called because patient was unable to ambulate following the fall. Patient presents in stable condition. Patient denies any recent fever, chills, shortness of breath, chest pain, back pain, abdominal pain, nausea or vomiting, numbness or tingling, dysuria or hematuria, constipation or diarrhea, headaches or visual changes, or any other complaints. - Related Data Home Medications Medication Instructions Recorded Confirmed Albuterol Sulfate [Proair Hfa] 1 - 2 puff INHALATION RT-QID PRN 10/14/17 Insulin Aspart Protam & Aspart See Protocol SQ AC-TID 10/14/17 04/13/18 [NovoLOG MIX 70-30 Flexpen] Albuterol Nebulized [Ventolin 2.5 mg INHALATION RT-QID PRN 04/13/18 04/13/18 Nebulized] Chlorthalidone [Hygroton] 25 mg PO DAILY 04/13/18 04/13/18 Insulin Regular, Human [NovoLIN R] See Protocol SQ AC-TID 04/13/18 04/13/18 Metoprolol Tartrate [Lopressor] 25 mg PO DAILY 04/13/18 04/13/18 Pioglitazone [Actos] 30 mg PO DAILY 04/13/18 04/13/18 Previous Rx's Medication Instructions Recorded Montelukast [Singulair] 10 mg PO HS #30 tab 01/15/17 traMADol HCL [Ultram] 50 mg PO Q6HR PRN 3 Days #12 tab 04/13/18 Allergies Allergy/AdvReac Type Severity Reaction Status Date / Time erythromycin base AdvReac Unknown States it Verified 04/13/18 17:17 does not help her. demerol Allergy Severe Anaphylaxis Uncoded 04/13/18 16:46 darvocet Allergy Confusion Uncoded 04/13/18 16:46 Review of Systems ROS Statement: Those systems with pertinent positive or pertinent negative responses have been documented in the HPI. ROS Other: All systems not noted in ROS Statement are negative. Constitutional: Denies: fever Eyes: Denies: eye pain ENT: Denies: ear pain, throat pain Respiratory: Denies: cough, dyspnea Cardiovascular: Denies: chest pain, palpitations Endocrine: Denies: fatigue Gastrointestinal: Denies: abdominal pain, nausea, vomiting Genitourinary: Denies: urgency, dysuria Musculoskeletal: Reports: as per HPI, joint swelling, arthralgia Skin: Denies: rash, lesions Neurological: Denies: headache, weakness Past Medical History Past Medical History: Asthma, Diabetes Mellitus, Deep Vein Thrombosis (DVT), Renal Disease Additional Past Medical History / Comment(s): STAGE 2 KIDNEY DISEASE, HX OF H- PYLORI, DVT LEFT LEG, STATES REACTIVE ASTHMA DUE TO ALLERGIES, BACK PAIN, HX OF PUNCTURED BOWEL DURING COLONOSCOPY IN 2006. , HX OF INJURY LEFT LEG A CHILD WITH 300 + STITCHES. History of Any Multi-Drug Resistant Organisms: None Reported Past Surgical History: Section, Cholecystectomy Additional Past Surgical History / Comment(s): X2. Past Anesthesia/Blood Transfusion Reactions: No Reported Reaction Past Psychological History: No Psychological Hx Reported Smoking Status: Never smoker Past Alcohol Use History: None Reported Past Drug Use History: None Reported - Past Family History Father Family Medical History: No Reported History Mother Family Medical History: Renal Disease General Exam - General Exam Comments Initial Comments: General: The patient is awake and alert, in no distress, and does not appear acutely ill. Eye: Pupils are equal, round and reactive to light, extra-ocular movements are intact. No nystagmus. There is normal conjunctiva bilaterally. No signs of icterus. Ears, nose, mouth and throat: There are moist mucous membranes and no oral lesions. Neck: The neck is supple, there is no tenderness or JVD. Cardiovascular: There is a regular rate and rhythm. No murmur, rub or gallop is appreciated. Respiratory: Lungs are clear to auscultation, respirations are non-labored, breath sounds are equal. No wheezes, stridor, rales, or rhonchi. Gastrointestinal: [Soft, non-distended, non-tender abdomen without masses or organomegaly noted. There is no rebound or guarding present. No CVA tenderness. Bowel sounds are unremarkable.] Musculoskeletal: There is swelling to the right knee, no overlying abrasion or laceration. Patient is unable to range the right knee or perform muscle testing of the right knee, extensor mechanism is not intact. Full sensation of the LE equally bilaterally. Normal ROM, no tenderness of ankle, foot or hip b/ l. Pulses equal bilaterally 2+DP- no coolness of extremity b/l.. Neurological: A&O x 3. CN II-XII intact, There are no obvious motor or sensory deficits. Coordination appears grossly intact. Speech is normal. Skin: Skin is warm and dry and no rashes or lesions are noted. Psychiatric: Cooperative, appropriate mood & affect, normal judgment. Limitations: no limitations Course Vital Signs 04/13/18 04/13/18 16:43 18:20 Temperature 96.8 F L 96.9 F L Pulse Rate 79 74 Respiratory 18 18 Rate Blood Pressure 130/60 161/72 O2 Sat by Pulse 97 98 Oximetry Medical Decision Making - Medical Decision Making Pt was given 5-325mg norco for acute pain. X-rays are performed of the right knee revealing a comminuted patella fracture with 7 mm of displacement. X-rays reviewed by myself and Dr. Lal. The case was discussed in detail with Dr. Lal. Patient replaced in a knee immobilizer in full extension. She be sent home with a prescription for tramadol for pain management as needed. Pt was told not to weight bear until further instruction from orthopedics. Patient is to follow-up with orthopedic surgery in one to 2 days for further evaluation and treatment. Case is discussed with patient who agrees the plan. Patient was discharged in stable condition. Disposition Clinical Impression: Comminuted fracture of right patella Disposition: HOME SELF-CARE Condition: Good Instructions: Patellar Fracture (ED) Additional Instructions: Please use medication as discussed. Please follow-up with orthopedics in 1-2 days. Please follow-up with family doctor in the next 2 days of symptoms have not improved. Please return to emergency room if the symptoms increase or worsen or for any other concerns. Prescriptions: traMADol HCL [Ultram] 50 mg PO Q6HR PRN 3 Days #12 tab PRN Reason: Pain Is patient prescribed a controlled substance at d/c from ED?: Yes When asked, does pt state using other controlled substances?: No If prescribed controlled substance>3 days was MAPS reviewed?: Prescribed <3 Days If opioid is for acute pain is fill amount 7 days or less?: Yes If Rx opioid, was Start Talking consent form obtained?: Yes Referrals: Nadir Marsh MD [Primary Care Provider] - 1-2 days Edd Ortiz MD [STAFF PHYSICIAN] - 1-2 days Time of Disposition: 18:10
[2018-04-13] MEDS ORDERED: traMADol 50 MG TAB PO STA (17:59)
[2018-04-13 18:22] VITALS: BP 161/72; PULSE 74; TEMP 96.9
== END 2018-04-13 18:20 | disposition home or self-care (01) ==
LOC: EC 16:16
DX: S82.042A Displaced comminuted fracture of left patella, initial encounter for closed fracture (principal); J45.909 Unspecified asthma, uncomplicated; E11.9 Type 2 diabetes mellitus without complications; Z79.4 Long term (current) use of insulin; Z79.899 Other long term (current) drug therapy; Z88.1 Allergy status to other antibiotic agents; Z88.5 Allergy status to narcotic agent; W01.0XXA Fall on same level from slipping, tripping and stumbling without subsequent striking against object, initial encounter; Y92.89 Other specified places as the place of occurrence of the external cause
CPT/HCPCS: 73562; 99283; L1830

== ENCOUNTER → 2018-04-14 | Outpatient (CLI) | payer MEDICARE, OTHER ==
[2018-04-14 13:15] LABS: Basophils % (A) 0 %; Eosinophils # (A) 0.1 k/uL (0-0.7); Eosinophils % (A) 1 %; HCT 37.3 % (34.0-46.0); HGB 12.1 gm/dL (11.4-16.0); INR 1.1 (<1.2); Lymphocytes % (A) 22 %; MCH 30.3 pg (25.0-35.0); MCHC 32.5 g/dL (31.0-37.0); MCV 93.4 fL (80.0-100.0); Mean Platelet Volume 8.3; Monocytes # (A) 0.6 k/uL (0-1.0); Monocytes % (A) 7 %; Neutrophils # (A) 6.3 k/uL (1.3-7.7); Neutrophils % (A) 69 %; Platelet Count 157 k/uL (150-450); Prothrombin Time 10.6 sec (9.0-12.0); RBC 3.99 m/uL (3.80-5.40); WBC 9.1 k/uL (3.8-10.6)
[2018-04-14 13:31] LABS: Potassium 3.9 mmol/L (3.5-5.1)
== END | disposition home or self-care (01) ==
LOC: LABPAT 12:23
PROVIDERS: ATTEND Orthopaedic Surgery
DX: Z01.812 Encounter for preprocedural laboratory examination (principal); E11.9 Type 2 diabetes mellitus without complications; N28.9 Disorder of kidney and ureter, unspecified; S82.031D Displaced transverse fracture of right patella, subsequent encounter for closed fracture with routine healing
CPT/HCPCS: 36415; 80051; 82565; 84520; 85025; 85610; 93005

== ENCOUNTER 2018-04-15 14:47 | Observation (INO) | payer MEDICARE, OTHER ==
[2018-04-14 14:19] VITALS: BMI 46.6
--- NOTE | 2018-04-14 17:42 | HP ---
HISTORY AND PHYSICAL CHIEF COMPLAINT: Right knee pain. HISTORY OF PRESENT ILLNESS: The patient is a 63-year-old retired female who presents with right knee pain after injury on 04/13/2018. She tripped and fell in her sister's driveway. She had no loss of consciousness. Initially she was seen in the emergency room and was placed in an immobilizer. She is having a difficult time with any weightbearing ever since. PAST MEDICAL HISTORY: Significant for insulin-dependent diabetes and hypertension. PAST SURGICAL HISTORY: 1. Hysterectomy. 2. Cholecystectomy. 3. section. CURRENT MEDICATIONS: 1. Insulin. 2. Lopressor. 3. Symbicort. ALLERGIES: 1. DEMEROL. 2. ERYTHROMYCIN. FAMILY HISTORY: Significant for heart disease and diabetes. SOCIAL HISTORY: Negative for current tobacco or alcohol use. REVIEW OF SYSTEMS: Sixteen-point review of systems otherwise reviewed and is noncontributory. PHYSICAL EXAMINATION: On examination, the patient is approximately 5 feet 6 inches, 309 pounds of endomorphic habitus. HEENT exam is nonfocal. NECK: Supple. She has painless passive motion of the right hip. On examination of her right knee, she has a large effusion. She is tender about the anterior aspect of the patella. She also has medial joint line tenderness. Collaterals are stable. Marked guarding is noted. She has limited motion because of pain. Homans is negative. Her distal neurovascular appears intact in the right lower extremity. IMAGING: X-rays of the right knee obtained from [facility] show a transverse mid patellar fracture with displacement. IMPRESSION: 1. Right displaced patella fracture. 2. Insulin-dependent diabetes. 3. Hypertension. 4. Increased body mass index. RECOMMENDATIONS: I talked to the patient at length regarding her condition and treatment options. At this point, I recommend proceeding with surgery. We will plan to proceed with open reduction and internal fixation of the right transverse displaced patella fracture. Risks and benefits were discussed at length in layman's terms. We will likely institute DVT prophylaxis postoperatively. MMODL / IJN: [id number] /
--- NOTE | 2018-04-15 10:53 | P.ONQ ---
Anesthesiology Proc Note - PNB - Peripheral Nerve Block Performed Right Adductor Canal Single Procedure Start Time: 11:10 Procedure Stop Time: 11:15 Preparation: Sterile Dressing Needle Types: Facet Needle Size: 100mm (4") Needle Gauge: 21 Injectate: 0.5% Ropivacaine (see comment for volume) (30 ml)
[2018-04-15] MEDS: LACTATED RINGERS 1,000 ML IV SCH (11:43)
--- NOTE | 2018-04-15 14:34 | P.OP ---
Date of Procedure: 04/15/18 Preoperative Diagnosis: Displaced right transverse patellar fracture Postoperative Diagnosis: Same Procedure(s) Performed: Open reduction and internal fixation right displaced patella fracture Implants: Partially-threaded 4.5 mm cannulated cortical screws Anesthesia: dana JAMES Surgeon: Edd Otriz [employer]former Shop Supervisor #1: Jenaro Hollis Estimated Blood Loss (ml): 20 Pathology: none sent Condition: stable Disposition: PACU Indications for Procedure: The patient is a 63-year-old female who presents after falling injuring her right knee. Upon evaluation she was noted of evidence of a displaced transverse patella fracture. A discussion of the risks and benefits of operative intervention was made with the patient. She opted to proceed. Operative risks to include infection, neurovascular injury, development of blood clots, possible development of nonunion, malunion, and possible need for subsequent procedures was discussed. Informed consent was obtained. Operative Findings: As below Description of Procedure: The patient was brought to the operating room, and after induction of general anesthesia the right lower extremity was prepped and draped in a normal fashion. The tourniquet was inflated to 270 mmHg. A midline prepatellar incision was then made extending approximately 10 cm.The skin and subcutaneous tissues were divided sharply. Electrocautery was used for hemostasis. The prepatellar tissue was opened. The patella fracture was then easily identified. A large hemarthrosis was encountered. The fracture fragments were then and clot and debris was removed. The articular surface was inspected. The fracture was then provisionally reduced with a exmdk-os-vlvsm clamp. 2 guide wires were then placed for placement of the cannulated screws. This is verified with fluoroscopy. The cannulated drill was used over these. A 4.5 mm x 40 mm cortical screw was partially threaded was then inserted over the first guidewire. A 4.5 mm x 42 mm cortical screw was placed over the second guidewire. A 16-gauge wire was then passed through both cannulated screws creating a rxnysq-rh-yavkc anterior tension band. This was appropriately tensioned. Final fluoroscopic views to include AP and lateral views of the knee showed adequate reduction of the fracture and the articular surface. The wound was irrigated with normal saline. The prepatellar tissue was reapproximated with simple interrupted 2-0 Vicryl suture. The subcutaneous tissues were reapproximated with interrupted 2-0 Vicryl sutures. The skin was reapproximated 3-0 subcu Prolene suture. Steri-Strips were applied. A sterile dressing was applied in addition to her brace locked in extension. The tourniquet was deflated less than 1 hour total tourniquet time. The patient was awoken from general anesthesia and transferred to recovery room in good condition. Blood loss was estimated 20 mL No complications were incurred. Sponge and needle counts were correct in the case.
--- NOTE | 2018-04-15 14:41 | FL ---
EXAMINATION TYPE: FL guidance operating room, XR knee limited RT DATE OF EXAM: 04/15/2018 CLINICAL HISTORY: Internal fixation of a patellar fracture. TECHNIQUE: Fluoroscopy. COMPARISON: None. FINDINGS/IMPRESSION: Fluoroscopic guidance was provided during procedure performed by Dr. Ortiz. A total of 13 seconds of fluoroscopic time was utilized during the procedure and 2 spot images was a cquired demonstrating surgical fixation of a patellar fracture.
[~2018-04-15 14:47] MED LIST changes: +DEXAMETHASONE SOD PHOSPHATE 10 MG/ML 1 ML VIAL IV ONE; +HYDROcodone/APAP 5-325MG 1 EACH TAB PO PRN; +INSULIN ASPART 100 UNIT/ML 1 ML 10 ML VIAL SQ ONE; +LACTATED RINGERS 1,000 ML IV ONE; -LACTATED RINGERS 1,000 ML IV SCH; +LIDOCAINE 1% 20 ML VIAL (10MG/ML) FOR IV START INTRADERMA ONE; +LIDOCAINE 1% INJ 10MG/ML (20 ML MDV) ONE; +MAGNESIUM HYDROXIDE 2,400 MG/10 ML CUP PO PRN; +MIDAZOLAM 2 MG/2 ML VIAL ONE; +MORPHINE SULFATE 2 MG/ML SYRINGE IVP PRN; +MORPHINE SULFATE 4 MG/ML SYRINGE IV PRN; +NALOXONE 0.4 MG/ML 1 ML VIAL IV PRN; +ONDANSETRON 4 MG/2 ML VIAL IVP ONE; +ONDANSETRON 4 MG/2 ML VIAL IVP PRN; +PHENYLEPHRINE-0.9% NACL SYG 1 MG/10 ML SYRINGE ONE; +PROPOFOL 10 MG/ML 20 ML VIAL IV ONE; +ROPIVACAINE 5 MG/ML 30 ML VIAL ONE; +SUCCINYLCHOLINE CHLORIDE 100 MG/5 ML SYR IV ONE; +fentaNYL (PF) 50 MCG/ML 2 ML AMP IVP ONE; +fentaNYL (PF) 50 MCG/ML 2 ML AMP ONE
[2018-04-15] MEDS ORDERED: fentaNYL (PF) 50 MCG/ML 2 ML AMP IVP ONE ×2 (14:50→15:01)
[2018-04-15] MEDS ORDERED: INSULIN ASPART 100 UNIT/ML 1 ML 10 ML VIAL SQ ONE (15:16)
[2018-04-15 15:26] LABS: Glucose,Whole Blood 283 mg/dL (75-99)
[2018-04-15] MEDS: traMADol 50 MG TAB PO SCH ×2 (17:48→22:15)
[2018-04-15] MEDS ORDERED: ALBUTEROL INHALER 60 PUFF/8 GM INHALER INHALATION PRN (17:52)
[2018-04-15] MEDS: ENOXAPARIN 30 MG/0.3 ML SYRINGE SQ SCH (19:21)
[2018-04-15] MEDS: SENNOSIDES-DOCUSATE SODIUM 1 EACH TAB PO SCH (19:21)
[2018-04-15] MEDS: MONTELUKAST 10 MG TAB PO SCH (19:22)
[2018-04-15 19:41] LABS: Glucose,Whole Blood 305 mg/dL (75-99)
[2018-04-15] MEDS: INSULIN ASPART 100 UNIT/ML 1 ML 10 ML VIAL SQ SCH (22:10)
--- NOTE | 2018-04-15 22:25 | CONS ---
CONSULTATION CHIEF COMPLAINT: Key[age]cyql-old white female who is status post fall in her sister's driveway. She came in with a significant injury to her right knee, status post surgery. She has insulin-dependent diabetes mellitus, obesity, hypertension. Surgery history includes C- section, cholecystectomy, hysterectomy. She has Symbicort, Lopressor and insulin at home. ALLERGIES are to DEMEROL. Socially lives with her . Does not smoke or drink alcohol. Fourteen-point review of systems negative except for what is mentioned in HPI. She is 5 feet 6 inches, 309, endomorphic habitus. Vital signs are reviewed. CARDIOVASCULAR: S1, S2. LUNGS: Clear. EXTREMITIES: Tender on anterior aspect of the patella. ASSESSMENT: 1. Status post mid patella fracture displacement. 2. Hypertension. 3. Insulin-dependent diabetes mellitus. Use albuterol updrafts p.r.n., Lovenox subcutaneously to prevent blood clot. Accu-Chek protocol. Losartan for hypertension will be continued. Singulair for breathing will be continued. Continue current treatment. Actos for diabetes will be given. MMODL / IJN: [id number] /
[2018-04-16 07:06] LABS: Basophils % (A) 0 %; Eosinophils # (A) 0.1 k/uL (0-0.7); Eosinophils % (A) 1 %; HCT 32.9 % (34.0-46.0); HGB 10.6 gm/dL (11.4-16.0); Lymphocytes # (A) 1.5 k/uL (1.0-4.8); Lymphocytes % (A) 18 %; MCH 31.1 pg (25.0-35.0); MCHC 32.3 g/dL (31.0-37.0); MCV 96.3 fL (80.0-100.0); Monocytes # (A) 0.5 k/uL (0-1.0); Monocytes % (A) 6 %; Neutrophils % (A) 72 %; Platelet Count 139 k/uL (150-450); RBC 3.42 m/uL (3.80-5.40); RDW 14.1 % (11.5-15.5); WBC 8.4 k/uL (3.8-10.6)
[2018-04-16 07:33] LABS: Glucose,Whole Blood 329 mg/dL (75-99)
--- NOTE | 2018-04-16 07:54 | P.PN ---
Progress Note - Text Progress Note Date: 04/16/18 S: The patient has no complaints. They deny shortness of breath or chest pain. O: Afebrile, vital signs stable Homans negative right lower extremity Distal neurovascular status intact in the operative extremity Dressing intact right leg A/P: Postoperative day 1 status post ORIF right patella fracture Medical management DVT prophylaxis with Lovenox Case management consult for possible rehab placement
[2018-04-16] MEDS: traMADol 50 MG TAB PO PRN ×2 (08:04→20:44)
[2018-04-16] MEDS: INSULN ASP PRT/INSULIN ASPART 100 UNIT/ML 10 ML VIAL SQ SCH ×2 (08:05→17:58)
[2018-04-16] MEDS: INSULIN ASPART 100 UNIT/ML 1 ML 10 ML VIAL SQ SCH ×4 (08:06→20:44)
[2018-04-16] MEDS: PIOGLITAZONE 30 MG TAB PO SCH (08:08)
[2018-04-16] MEDS: CHLORTHALIDONE 25 MG TAB PO SCH (08:08)
[2018-04-16] MEDS: ENOXAPARIN 30 MG/0.3 ML SYRINGE SQ SCH ×2 (08:08→20:44)
[2018-04-16] MEDS: LOSARTAN 50 MG TAB PO SCH (08:08)
[2018-04-16] MEDS: FAMOTIDINE 20 MG TAB PO SCH (09:15)
[2018-04-16 12:05] LABS: Glucose,Whole Blood 268 mg/dL (75-99)
[2018-04-16] MEDS: LACTATED RINGERS 1,000 ML IV SCH (12:51)
[2018-04-16 15:08] LABS: Hemoglobin A1C 9.3 % (4.0-6.0)
[2018-04-16 16:35] LABS: Glucose,Whole Blood 243 mg/dL (75-99)
--- NOTE | 2018-04-16 17:10 | XR ---
EXAMINATION TYPE: XR chest 2V DATE OF EXAM: 04/16/2018 COMPARISON: 01/11/2017 HISTORY: Rehabilitation placement TECHNIQUE: Frontal and lateral views of the chest are obtained. FINDINGS: There is no heart failure nor confluent pneumonic infiltrate. Costophrenic angles are greta r. Heart size is normal. There is some linear density anteriorly in the lateral view there is probabl y in the right middle lobe. IMPRESSION: Stable scarring or subsegmental atelectasis in the right middle lobe. Normal heart..
[2018-04-16] MEDS: ALBUTEROL NEBULIZED 2.5 MG/3 ML INHALATION PRN (19:45)
[2018-04-16 20:14] LABS: Glucose,Whole Blood 267 mg/dL (75-99)
[2018-04-16] MEDS: SENNOSIDES-DOCUSATE SODIUM 1 EACH TAB PO SCH (20:43)
[2018-04-16] MEDS: MONTELUKAST 10 MG TAB PO SCH (20:44)
--- NOTE | 2018-04-17 00:05 | PN ---
PROGRESS NOTE SUBJECTIVE: A 63-year-old white female on diabetes mellitus medication. She is on bilateral knee braces. She will need physical therapy. In the next 24-48 hours, she will be going to rehab center. Hemoglobin is 10.6. Sugars remain 200-300s. A1c is 9.3 CARDIOVASCULAR: S1, S2. LUNGS: Transmitted upper airway sounds. GI: Increased bowel sounds. HEMATOLOGY: Negative Homans'. BMI is over 40. ASSESSMENT: 1. Status post patellar fracture. 2. Insulin-dependent diabetes mellitus. 3. Morbid obesity. 4. Hypertension. Please see further orders. MMODL / IJN: [id number] /
[2018-04-17] MEDS: traMADol 50 MG TAB PO PRN ×2 (05:34→22:03)
[2018-04-17] MEDS: ALBUTEROL NEBULIZED 2.5 MG/3 ML INHALATION PRN ×4 (07:23→18:48)
[2018-04-17 07:29] LABS: Glucose,Whole Blood 325 mg/dL (75-99)
[2018-04-17] MEDS: INSULIN ASPART 100 UNIT/ML 1 ML 10 ML VIAL SQ SCH ×4 (07:38→22:01)
[2018-04-17] MEDS: INSULN ASP PRT/INSULIN ASPART 100 UNIT/ML 10 ML VIAL SQ SCH ×2 (07:38→17:46)
[2018-04-17] MEDS: ENOXAPARIN 30 MG/0.3 ML SYRINGE SQ SCH ×2 (08:18→22:01)
[2018-04-17] MEDS: CHLORTHALIDONE 25 MG TAB PO SCH (08:18)
[2018-04-17] MEDS: FAMOTIDINE 20 MG TAB PO SCH (08:18)
[2018-04-17] MEDS: LOSARTAN 50 MG TAB PO SCH (08:18)
[2018-04-17] MEDS: PIOGLITAZONE 30 MG TAB PO SCH (08:19)
[2018-04-17] MEDS: LACTATED RINGERS 1,000 ML IV SCH (08:44)
--- NOTE | 2018-04-17 11:55 | P.PN ---
Progress Note - Text Progress Note Date: 04/17/18 S: The patient has no complaints. They deny shortness of breath or chest pain. O: Afebrile, vital signs stable Homans negative right lower extremity Distal neurovascular status intact in the right lower extremity Dressing intact right knee A/P: Postoperative day 2 status post open reduction and internal fixation right patella fracture Medical management DVT prophylaxis with Lovenox Possible rehab placement soon
[2018-04-17 12:09] LABS: Glucose,Whole Blood 254 mg/dL (75-99)
--- NOTE | 2018-04-17 16:48 | PN ---
PROGRESS NOTE SUBJECTIVE: 63-year-old white female, right knee patella fracture, insulin-dependent diabetes mellitus. She will be going to rehab center today as she clinically is improving. Sugars are stable. CARDIOVASCULAR: S1, S2. LUNGS: Clear. GI: Soft. ASSESSMENT: 1. Right knee patellar fracture. 2. Insulin-dependent diabetes mellitus. 3. Morbid obesity. Continue current treatment with diabetic control. PT, OT. Nonweightbearing per Orthopedics. MMODL / IJN: [id number] /
[2018-04-17 17:27] LABS: Glucose,Whole Blood 336 mg/dL (75-99)
[2018-04-17] MEDS: ACETAMINOPHEN TAB 325 MG TAB PO PRN (17:46)
[2018-04-17 20:08] LABS: Glucose,Whole Blood 267 mg/dL (75-99)
[2018-04-17] MEDS: SENNOSIDES-DOCUSATE SODIUM 1 EACH TAB PO SCH (22:01)
[2018-04-17] MEDS: MONTELUKAST 10 MG TAB PO SCH (22:01)
[2018-04-18] MEDS: traMADol 50 MG TAB PO PRN ×2 (03:52→21:18)
[2018-04-18 07:07] LABS: Glucose,Whole Blood 210 mg/dL (75-99)
[2018-04-18] MEDS: INSULIN ASPART 100 UNIT/ML 1 ML 10 ML VIAL SQ SCH ×4 (07:36→21:18)
[2018-04-18] MEDS: LOSARTAN 50 MG TAB PO SCH (07:37)
[2018-04-18] MEDS: CHLORTHALIDONE 25 MG TAB PO SCH (07:37)
[2018-04-18] MEDS: ENOXAPARIN 30 MG/0.3 ML SYRINGE SQ SCH ×2 (07:37→21:17)
[2018-04-18] MEDS: PIOGLITAZONE 30 MG TAB PO SCH (07:37)
[2018-04-18] MEDS: FAMOTIDINE 20 MG TAB PO SCH (07:37)
[2018-04-18] MEDS: INSULN ASP PRT/INSULIN ASPART 100 UNIT/ML 10 ML VIAL SQ SCH ×2 (07:37→17:50)
[2018-04-18 07:45] LABS: Basophils % (A) 0 %; Eosinophils # (A) 0.2 k/uL (0-0.7); Eosinophils % (A) 2 %; HCT 35.2 % (34.0-46.0); HGB 11.5 gm/dL (11.4-16.0); Lymphocytes # (A) 1.4 k/uL (1.0-4.8); Lymphocytes % (A) 16 %; MCH 30.3 pg (25.0-35.0); MCHC 32.7 g/dL (31.0-37.0); MCV 92.7 fL (80.0-100.0); Mean Platelet Volume 8.8; Monocytes # (A) 0.7 k/uL (0-1.0); Monocytes % (A) 8 %; Neutrophils # (A) 6.5 k/uL (1.3-7.7); Neutrophils % (A) 73 %; Platelet Count 133 k/uL (150-450); RDW 13.9 % (11.5-15.5); WBC 8.9 k/uL (3.8-10.6)
--- NOTE | 2018-04-18 11:24 | P.PN ---
Progress Note - Text Progress Note Date: 04/18/18 S: The patient has no complaints. They deny shortness of breath or chest pain. O: Afebrile, vital signs stable Homans negative right lower extremity Distal neurovascular status intact in the operative extremity Incision clean, dry , and intact right knee A/P: status post ORIF right patella fracture Medical management DVT prophylaxis with Lovenox Probable discharge to rehab facility tomorrow.
[2018-04-18 11:27] LABS: Glucose,Whole Blood 145 mg/dL (75-99)
[2018-04-18] MEDS: ACETAMINOPHEN TAB 325 MG TAB PO PRN (11:58)
[2018-04-18] MEDS: LACTATED RINGERS 1,000 ML IV SCH (11:59)
[2018-04-18] MEDS: ALBUTEROL NEBULIZED 2.5 MG/3 ML INHALATION PRN ×3 (12:04→19:57)
[2018-04-18 17:15] LABS: Glucose,Whole Blood 304 mg/dL (75-99)
[2018-04-18 20:02] LABS: Glucose,Whole Blood 278 mg/dL (75-99)
[2018-04-18] MEDS: SENNOSIDES-DOCUSATE SODIUM 1 EACH TAB PO SCH (21:17)
[2018-04-18] MEDS: MONTELUKAST 10 MG TAB PO SCH (21:18)
[2018-04-19 00:47] VITALS: TEMP 98.3
[2018-04-19] MEDS: traMADol 50 MG TAB PO PRN (05:25)
[2018-04-19 06:51] VITALS: BP 114/61; PULSE 65; RESP 14
--- NOTE | 2018-04-19 06:53 | PN ---
PROGRESS NOTE SUBJECTIVE: 63-year-old white female status post patellar fracture with patella surgery. Remains on NovoLog 70/30 for diabetes, Cozaar for hypertension. White count is normal. Hemoglobin is normal. Sugars are in the mid 200s to 100s. She will be sent to rehab tomorrow and clinically stable from medical standpoint from her insulin-dependent diabetes mellitus and her hypertension, morbid obesity, and patellar fracture. MMODL / IJN: [id number] /
[2018-04-19 07:08] LABS: Glucose,Whole Blood 122 mg/dL (75-99)
[2018-04-19] MEDS: INSULIN ASPART 100 UNIT/ML 1 ML 10 ML VIAL SQ SCH ×2 (07:46→14:03)
[2018-04-19] MEDS: ENOXAPARIN 30 MG/0.3 ML SYRINGE SQ SCH (07:52)
[2018-04-19] MEDS: LOSARTAN 50 MG TAB PO SCH (07:53)
[2018-04-19] MEDS: CHLORTHALIDONE 25 MG TAB PO SCH (07:53)
[2018-04-19] MEDS: PIOGLITAZONE 30 MG TAB PO SCH (07:53)
[2018-04-19] MEDS: FAMOTIDINE 20 MG TAB PO SCH (07:53)
[2018-04-19] MEDS: INSULN ASP PRT/INSULIN ASPART 100 UNIT/ML 10 ML VIAL SQ SCH (07:57)
[2018-04-19] MEDS: LACTATED RINGERS 1,000 ML IV SCH (07:57)
[2018-04-19 12:00] LABS: Glucose,Whole Blood 159 mg/dL (75-99)
--- NOTE | 2018-04-19 13:07 | P.PN ---
Subjective Progress Note Date: 04/19/18 Principal diagnosis: Status post ORIF right patella fracture Patient seen today resting in her hospital bed, she appears comfortable. Pain control is well at this time. She denies any headaches, lightheadedness, chest pain or shortness of breath. Objective - Vital Signs Vital signs: Vital Signs Temp 98.3 F 04/19/18 06:47 Pulse 65 04/19/18 06:47 Resp 14 04/19/18 06:47 BP 114/61 04/19/18 06:47 Pulse Ox 95 04/19/18 07:14 Intake & Output 04/18/18 04/19/18 04/19/18 18:59 06:59 18:59 Intake Total 120 1320 Output Total 600 Balance 120 720 Intake: Intake, IV Titration 120 240 Amount Lactated Ringers 1,000 ml 120 240 @ 50 mls/hr IV .Q20H OSMIN Rx#:[id number] Oral 1080 Output: Urine 600 Other: Voiding Method Bedside Commode Bedside Commode Bedside Commode # Voids 2 2 1 - Exam Right lower extremity: Incision is clean, dry, and intact. The prineo tape is in good condition. There is minimal soft tissue swelling and ecchymosis surrounding the medial and lateral aspects of the incision. Calf is soft, no tenderness with palpation. Plantar flexion, dorsiflexion, EHL, FHL are intact. Sensory exam to light touch throughout the extremity is intact, dorsal pedis pulses 2+. - Labs CBC & Chem 7: 04/18/18 06:22 Labs: Abnormal Lab Results - Last 24 Hours (Table) 04/18/18 04/18/18 04/19/18 Range/Units 17:12 20:00 07:06 POC Glucose (mg/dL) 304 H 278 H 122 H (75-99) mg/dL 04/19/18 Range/Units 11:58 POC Glucose (mg/dL) 159 H (75-99) mg/dL Assessment and Plan Plan: Assessment: Status post ORIF right patellar fracture Plan: Pain control, we'll discharge on tramadol 50 mg every 6 hours GI and DVT prophylaxis, aspirin 325 mg twice a day for 2 weeks Dressing changes daily, ice and elevate Utilizing the immobilizer in full extension, toe-touch weightbearing with walker Medical recommendations Discharge planning: Patient will be discharged to rehab today Time with Patient: Less than 30
--- NOTE | 2018-04-19 13:12 | P.DS ---
Providers Date of admission: 04/16/18 14:10 Expected date of discharge: 04/19/18 Attending physician: Edd Ortiz Consults: 04/15/18 14:55 Consult Physician Routine Consulting Provider: Nadir Marsh Reason/Comments: MEDICAL MANAGEMENT Do you want consulting provider notified?: Yes Primary care physician: Stated None Hospital Course: Date of admission: 04/15/2018 Date of discharge: 04/19/2018 Admission diagnosis: Status post ORIF right patellar fracture Discharge diagnosis: Same Attending physician: Dr. Ortiz Surgical procedures: ORIF right patellar fracture Brief history: Patient is a 63-year-old female who was evaluated in the outpatient setting by Dr. Ortiz after an right knee injury. She was diagnosed with a displaced right patellar fracture. Treatment options were discussed, she decided to proceed with ORIF of the right patella fracture. This was scheduled for 04/15/2018. Hospital course: Details of patient's surgery can be found in operative report. Patient tolerated the procedure well and was subsequently transported to orthopedic floor. Patient's orthopeidc and medical care was provided daily. Patient had daily laboratory tests performed for evaluation of overall blood counts. Patient had daily physical therapy to include strengthening range of motion as well as education with walker ambulation. Patient was treated with Lovenox for their postoperative DVT prophylaxis during their inpatient stay. Patient was noted to have a relatively uneventful postoperative course. Patient reported satisfactory pain control with oral pain medications by postoperative day 0. Patient showed satisfactory progress with physical therapy. Patient moved steadily through the program and had no difficulty meeting the goals by postoperative day 4. Given patient's otherwise satisfactory course and having met physical therapy goals, plan is to discharge patient rehab on postoperative day 4. Discharge condition/disposition: Patient will be discharged rehab in stable condition. Discharge medications: Instructions are given on resumption of patient's normal daily medications per primary care recommendation, in addition patient will be prescribed tramadol 50 mg, aspirin 325 mg. Discharge instructions: 1. Wound care and infection precautions, keep incision dry and covered while showering, no lotions, creams, moisturizers. No soaking, tubs, pools, hottubs. Do not scrub over the incision. 2. Toe-touch weightbearing with walker, utilize knee immobilizer 3. Ice and elevate when necessary. Do not exceed 20 minutes per hour with ice pack. 4. Utilize compression sleeve until seen at first follow up appointment. 5. Visiting nursing care. 6. Home physical therapy. 7. Pain meds and anticoagulants per prescription. 8. Pain medication has potential to cause constipation. Increase oral fluid and fiber intake. Contact primary care provider if you have not had a bowel movement within 48 hours after discharge 9. No anti-inflammatory medication until discussed at first post operative visit, this including Motrin, Aleve, Mobic, Diclofenac. 10. Follow up in office at 2 weeks postop with Casey Hollis PA-C 11. Follow up with your primary care doctor 7-10 days after discharge. 12. Contact [facility] with any questions, . Procedures: Open Reduction internal fixation right patellar fracture Patient Condition at Discharge: Good Plan - Discharge Summary Discharge Rx Participant: No New Discharge Prescriptions: New Aspirin 325 mg PO BID #60 tab traMADol HCl [Ultram] 50 mg PO Q6H PRN #28 tab PRN Reason: Pain No Action Montelukast [Singulair] 10 mg PO HS #30 tab Albuterol Sulfate [Proair Hfa] 1 - 2 puff INHALATION RT-QID PRN PRN Reason: Cough Chlorthalidone [Hygroton] 25 mg PO DAILY Pioglitazone [Actos] 30 mg PO DAILY Albuterol Nebulized [Ventolin Nebulized] 2.5 mg INHALATION RT-QID PRN PRN Reason: Shortness Of Breath Insulin Regular, Human [NovoLIN R] See Protocol SQ AC-TID Losartan [Cozaar] 50 mg PO QAM Insuln Asp Prt/Insulin Aspart [NovoLOG MIX 70-30 VIAL] 60 units SQ BID-W/ MEALS Discharge Medication List Montelukast [Singulair] 10 mg PO HS #30 tab 01/15/17 [Rx] Albuterol Sulfate [Proair Hfa] 1 - 2 puff INHALATION RT-QID PRN 10/14/17 [ History] Albuterol Nebulized [Ventolin Nebulized] 2.5 mg INHALATION RT-QID PRN 04/13/18 [ History] Chlorthalidone [Hygroton] 25 mg PO DAILY 04/13/18 [History] Insulin Regular, Human [NovoLIN R] See Protocol SQ AC-TID 04/13/18 [History] Pioglitazone [Actos] 30 mg PO DAILY 04/13/18 [History] Insuln Asp Prt/Insulin Aspart [NovoLOG MIX 70-30 VIAL] 60 units SQ BID-W/MEALS 04/14/18 [History] Losartan [Cozaar] 50 mg PO QAM 04/14/18 [History] Aspirin 325 mg PO BID #60 tab 04/19/18 [Rx] traMADol HCl [Ultram] 50 mg PO Q6H PRN #28 tab 04/19/18 [Rx] Follow up Appointment(s)/Referral(s): Edd Ortiz MD [STAFF PHYSICIAN] - 2 Weeks Activity/Diet/Wound Care/Special Instructions: Weightbearing as tolerated in brace with walker and assistance. Wear brace at all times. Keep incision clean and dry. Discharge Disposition: TRANSFER TO SNF/ECF
[2018-04-19 17:09] LABS: Glucose,Whole Blood 176 mg/dL (75-99)
== END 2018-04-19 17:45 ==
LOC: 3SUR 14:47 → OR 14:47 → 3SUR 04-16 14:10
PROVIDERS: ADMIT Orthopaedic Surgery; ATTEND Orthopaedic Surgery
DX: S82.031A Displaced transverse fracture of right patella, initial encounter for closed fracture (principal); I10 Essential (primary) hypertension; E11.9 Type 2 diabetes mellitus without complications; E66.01 Morbid (severe) obesity due to excess calories; Z68.42 Body mass index [BMI] 45.0-49.9, adult; J44.9 Chronic obstructive pulmonary disease, unspecified; N28.9 Disorder of kidney and ureter, unspecified; Y92.008 Other place in unspecified non-institutional (private) residence as the place of occurrence of the external cause; W01.0XXA Fall on same level from slipping, tripping and stumbling without subsequent striking against object, initial encounter; Z79.4 Long term (current) use of insulin; Z90.49 Acquired absence of other specified parts of digestive tract; Z79.899 Other long term (current) drug therapy; Z88.5 Allergy status to narcotic agent; Z88.1 Allergy status to other antibiotic agents; Z82.49 Family history of ischemic heart disease and other diseases of the circulatory system; Z86.718 Personal history of other venous thrombosis and embolism; Z88.8 Allergy status to other drugs, medicaments and biological substances
CPT/HCPCS: 27524; 94640 ×5; 94760 ×2; 97116; 97110; 97530; 97161; 97535; 97166; 85025 ×2; 83036; 73560; 71046; G0378 ×4; C1713; J2250; J0690 ×2; J2405; J2001; J3010; J1650 ×5; J2795; J2370; J0330; J2704

== ENCOUNTER → 2018-04-15 | Day surgery (SDC) | payer MEDICARE, OTHER ==
[2018-04-19 06:52] LABS: Glucose,Whole Blood 280 mg/dL (75-99)
== END ==
LOC: OR 14:45
PROVIDERS: ATTEND Orthopaedic Surgery
DX: M23.92 Unspecified internal derangement of left knee (principal); Z53.9 Procedure and treatment not carried out, unspecified reason

== ENCOUNTER → 2018-11-12 | Outpatient (CLI) | payer MEDICARE ==
[2018-11-12 18:45] LABS: Anion Gap 5.7 mmol/L (4.00-12.00); Carbon Dioxide 26.3 mmol/L (21.6-31.8); LDL Cholesterol,Calculated 53.4 mg/dL (0.0-131.0); VLDL Calculation 16.6 mg/dL (5.00-40.00)
[2018-11-12 22:30] LABS: Hemoglobin A1C 10.2 % (4.0-6.0)
== END | disposition home or self-care (01) ==
LOC: LABWHC1 12:00
PROVIDERS: ATTEND Family Medicine
DX: E11.9 Type 2 diabetes mellitus without complications (principal); I10 Essential (primary) hypertension; N39.0 Urinary tract infection, site not specified
CPT/HCPCS: 36415; 80051; 80061; 82565; 83036; 84443; 84520; 87086

== ENCOUNTER → 2019-09-30 | Outpatient (CLI) | payer MEDICARE, OTHER ==
[2019-09-30 17:16] LABS: African American GFR (CKD) 89.7 (60.0-200.0); Anion Gap 6.9 mmol/L (4.00-12.00); Carbon Dioxide 27.1 mmol/L (21.6-31.8); Chol/HDL Ratio 1.74; Non-African American GFR(CKD) 77.4 (60.0-200.0); Potassium 4.6 mmol/L (3.5-5.5)
[2019-09-30 20:03] LABS: Hemoglobin A1C 11.7 % (4.0-6.0)
== END | disposition home or self-care (01) ==
LOC: LABWHC1 09:38
PROVIDERS: ATTEND Family Medicine
DX: I10 Essential (primary) hypertension (principal); E11.9 Type 2 diabetes mellitus without complications; Z79.899 Other long term (current) drug therapy
CPT/HCPCS: 36415; 80051; 80061; 82565; 83036; 84443; 84520

== ENCOUNTER 2019-10-06 10:07 | Day surgery (SDC) | payer MEDICARE ==
[2019-10-04 09:44] VITALS: BMI 45.3
[~2019-10-06 10:07] MED LIST changes: -DEXAMETHASONE SOD PHOSPHATE 10 MG/ML 1 ML VIAL IV ONE; -HYDROcodone/APAP 5-325MG 1 EACH TAB PO PRN; -INSULIN ASPART 100 UNIT/ML 1 ML 10 ML VIAL SQ ONE; -LACTATED RINGERS 1,000 ML IV ONE; -LIDOCAINE 1% 20 ML VIAL (10MG/ML) FOR IV START INTRADERMA ONE; -LIDOCAINE 1% INJ 10MG/ML (20 ML MDV) ONE; -MAGNESIUM HYDROXIDE 2,400 MG/10 ML CUP PO PRN; -MIDAZOLAM 2 MG/2 ML VIAL ONE; -MORPHINE SULFATE 2 MG/ML SYRINGE IVP PRN; -MORPHINE SULFATE 4 MG/ML SYRINGE IV PRN; -NALOXONE 0.4 MG/ML 1 ML VIAL IV PRN; -ONDANSETRON 4 MG/2 ML VIAL IVP ONE; -ONDANSETRON 4 MG/2 ML VIAL IVP PRN; -PHENYLEPHRINE-0.9% NACL SYG 1 MG/10 ML SYRINGE ONE; -PROPOFOL 10 MG/ML 20 ML VIAL IV ONE; -ROPIVACAINE 5 MG/ML 30 ML VIAL ONE; +SODIUM CHLORIDE 0.9% 1,000 ML IV SCH; -SUCCINYLCHOLINE CHLORIDE 100 MG/5 ML SYR IV ONE; -fentaNYL (PF) 50 MCG/ML 2 ML AMP IVP ONE; -fentaNYL (PF) 50 MCG/ML 2 ML AMP ONE
[2019-10-06 11:16] VITALS: RESP 16; TEMP 98.1
[2019-10-06 11:17] LABS: Glucose,Whole Blood 191 mg/dL (75-99)
[2019-10-06] MEDS ORDERED: MIDAZOLAM 2 MG/2 ML VIAL IVP ONE (12:42)
[2019-10-06] MEDS ORDERED: LIDOCAINE 1% INJ 10MG/ML (20 ML MDV) SQ ONE (12:47)
--- NOTE | 2019-10-06 13:07 | P.PCN ---
Preoperative Diagnosis: Loop monitor implant Primary physicians: Dr. Nadir Marsh Color Depositing Machine Tender: Dr. Aparicio Indication: Palpitations, suspected atrial fibrillation Patient was brought to the EP lab in a fasting state. Written informed consent was obtained prior to the procedure. The left pectoral area was prepped and draped per protocol. Intravenous antibiotic was administered preoperatively. A subcutaneous Loop monitor was implanted successfully and the wound was closed per protocol. The device was programmed to detect significant lola- arrhythmic and tachy-arrhythmic events, per protocol. Device and programming details: A. fib and bradycardia protocol Patient underwent EP procedure under conscious sedation/moderate sedation, monitoring of the level of consciousness and physiologic parameters including but not limited to vital signs and oxygenation. Patient tolerated the procedure well without any acute complications. Start time: 1243 Stop time: 1302
--- NOTE | 2019-10-06 13:08 | P.PRLE ---
RE: Amanda Paredes Dear Nadir Amanda Paredes underwent implantation of loop monitor for suspected atrial fibrillation I will keep you posted if we detect atrial fibrillation in the future Thank you for entrusting me with the care of the patient Warm regards Sincerely Edvin Aparicio
[2019-10-06 13:59] VITALS: BP 175/87; PULSE 72
== END 2019-10-06 14:00 | disposition home or self-care (01) ==
LOC: CATHEP 10:07
PROVIDERS: ATTEND Internal Medicine Clinical Cardiac Electrophysiology
DX: R07.89 Other chest pain (principal); R00.2 Palpitations; E11.9 Type 2 diabetes mellitus without complications; I10 Essential (primary) hypertension; Z79.82 Long term (current) use of aspirin; Z79.4 Long term (current) use of insulin; Z79.899 Other long term (current) drug therapy
CPT/HCPCS: 33285; C1764; J2250; J0690; J2001

== ENCOUNTER → 2020-04-20 | Outpatient (CLI) | payer MEDICARE, OTHER ==
[2020-04-20 12:30] LABS: Basophils % (A) 0 %; Eosinophils # (A) 0.3 k/uL (0-0.7); Eosinophils % (A) 4 %; HCT 38.3 % (34.0-46.0); HGB 12.2 gm/dL (11.4-16.0); Lymphocytes # (A) 2.7 k/uL (1.0-4.8); Lymphocytes % (A) 33 %; MCHC 31.7 g/dL (31.0-37.0); MCV 94.4 fL (80.0-100.0); Mean Platelet Volume 9.3; Monocytes # (A) 0.6 k/uL (0-1.0); Monocytes % (A) 7 %; Neutrophils # (A) 4.3 k/uL (1.3-7.7); Neutrophils % (A) 53 %; Platelet Count 122 k/uL (150-450); RBC 4.06 m/uL (3.80-5.40); RDW 13.8 % (11.5-15.5); WBC 8.1 k/uL (3.8-10.6)
[2020-04-20 20:05] LABS: Albumin 3.2 g/dL (3.80-4.90); Albumin/Globulin Ratio 1.39 (1.60-3.17); Anion Gap 5.3 mmol/L (4.00-12.00); BUN/Creat Ratio 26.25 Ratio (12.00-20.00); Calcium 8.6 mg/dL (8.7-10.3); Carbon Dioxide 25.7 mmol/L (21.6-31.8); Globulin 2.3 g/dL (1.6-3.3); Non-African American GFR(CKD) 76.8 (60.0-200.0); Potassium 3.6 mmol/L (3.5-5.5); Total Bilirubin 0.9 mg/dL (0.3-1.2); Total Protein 5.5 g/dL (6.2-8.2)
[2020-04-20 20:56] LABS: Erythrocyte Sedimentation Rate 25 mm/Hr (0-30)
[2020-04-20 22:09] LABS: Hemoglobin A1C 10.5 % (4.0-6.0)
== END ==
LOC: LABWHC1 10:10
PROVIDERS: ATTEND Family Medicine
DX: I10 Essential (primary) hypertension (principal); E11.9 Type 2 diabetes mellitus without complications
CPT/HCPCS: 36415; 80053; 83036; 85025; 85652

== ENCOUNTER 2020-04-25 10:57 | Inpatient (IN) | payer MEDICARE, OTHER ==
[2020-04-25 16:41] LABS: Glucose,Whole Blood 383 mg/dL (75-99)
[2020-04-25] MEDS: INSULN ASP PRT/INSULIN ASPART 100 UNIT/ML 10 ML VIAL SQ SCH (16:51)
[2020-04-25] MEDS: ATORVASTATIN 10 MG TAB PO SCH (20:37)
[2020-04-25 21:19] LABS: Basophils % (A) 1 %; Eosinophils # (A) 0.2 k/uL (0-0.7); Eosinophils % (A) 4 %; HCT 35.4 % (34.0-46.0); HGB 11.4 gm/dL (11.4-16.0); Lymphocytes # (A) 1.2 k/uL (1.0-4.8); Lymphocytes % (A) 25 %; MCH 30.6 pg (25.0-35.0); MCHC 32.2 g/dL (31.0-37.0); MCV 95.2 fL (80.0-100.0); Mean Platelet Volume 10.4; Monocytes # (A) 0.3 k/uL (0-1.0); Monocytes % (A) 7 %; Neutrophils # (A) 2.9 k/uL (1.3-7.7); Neutrophils % (A) 61 %; Platelet Count 101 k/uL (150-450); RBC 3.72 m/uL (3.80-5.40); RDW 13.5 % (11.5-15.5); WBC 4.8 k/uL (3.8-10.6)
[2020-04-25 21:35] LABS: Albumin 2.7 g/dL (3.5-5.0); Calcium 8.8 mg/dL (8.4-10.2); Potassium 4.7 mmol/L (3.5-5.1); Total Bilirubin 0.7 mg/dL (0.2-1.3); Total Protein 5.5 g/dL (6.3-8.2)
[2020-04-26 00:18] LABS: Glucose,Whole Blood 241 mg/dL (75-99)
[2020-04-26] MEDS: NAFCILLIN 2 GM in DEXTROSE 5% IN WATER 100 ML IVPB SCH ×4 (00:34→05:21)
[2020-04-26 06:03] LABS: Hemoglobin A1C 10.7 % (4.0-6.0)
[2020-04-26 06:10] LABS: Glucose,Whole Blood 203 mg/dL (75-99)
[2020-04-26] MEDS ORDERED: INSULIN ASPART (NovoLOG) 100 UNIT/ML VIAL SQ SCH ×2 (06:15)
[2020-04-26 06:54] LABS: Glucose,Whole Blood 248 mg/dL (75-99)
[2020-04-26 07:27] LABS: Albumin 2.8 g/dL (3.5-5.0); Basophils % (A) 1 %; Calcium 8.7 mg/dL (8.4-10.2); Eosinophils # (A) 0.3 k/uL (0-0.7); Eosinophils % (A) 5 %; HCT 37.5 % (34.0-46.0); HGB 12.1 gm/dL (11.4-16.0); Lymphocytes # (A) 1.5 k/uL (1.0-4.8); Lymphocytes % (A) 28 %; MCH 30.6 pg (25.0-35.0); MCHC 32.2 g/dL (31.0-37.0); Mean Platelet Volume 9.5; Monocytes # (A) 0.3 k/uL (0-1.0); Monocytes % (A) 6 %; Neutrophils # (A) 3.1 k/uL (1.3-7.7); Neutrophils % (A) 58 %; Platelet Count 115 k/uL (150-450); Potassium 4.8 mmol/L (3.5-5.1); RBC 3.95 m/uL (3.80-5.40); RDW 13.5 % (11.5-15.5); Total Bilirubin 1.4 mg/dL (0.2-1.3); Total Protein 5.6 g/dL (6.3-8.2); WBC 5.3 k/uL (3.8-10.6)
[2020-04-26] MEDS: INSULN ASP PRT/INSULIN ASPART 100 UNIT/ML 10 ML VIAL SQ SCH ×3 (08:17→21:57)
[2020-04-26] MEDS: ASCORBIC ACID 500 MG TAB PO SCH (08:17)
[2020-04-26] MEDS: ASPIRIN 81 MG PO SCH (08:17)
[2020-04-26] MEDS: INSULIN ASPART (NovoLOG) 100 UNIT/ML VIAL SQ SCH ×4 (08:18→21:57)
[2020-04-26] MEDS: lisinopriL 10 MG TAB PO SCH (08:19)
[2020-04-26 11:33] LABS: Glucose,Whole Blood 214 mg/dL (75-99)
--- NOTE | 2020-04-26 12:09 | US ---
EXAMINATION TYPE: US venous doppler duplex LE LT DATE OF EXAM: 04/26/2020 11:49 AM COMPARISON: NONE CLINICAL HISTORY: left leg swelling. known cellulitis, h/o dvt within left leg SIDE PERFORMED: left TECHNIQUE: The lower extremity deep venous system is examined utilizing real time linear array sonog jennifer with graded compression, doppler sonography and color-flow sonography. VESSELS IMAGED: External Iliac Vein (EIV) Common Femoral Vein Deep Femoral Vein Greater Saphenous Vein * Femoral Vein Popliteal Vein Small Saphenous Vein * Proximal Calf Veins (* superficial vessels) difficult patient to image due to large habitus Left Leg: Negative for DVT There is normal flow, compressibility, vascular waveforms. IMPRESSION: No evident deep venous thrombosis at or above the left knee
[2020-04-26] MEDS ORDERED: MELATONIN 1 MG TAB PO PRN (12:50)
[2020-04-26 13:16] VITALS: BMI 49.1
[2020-04-26] MEDS: FUROSEMIDE 10 MG/ML 2 ML VIAL IV SCH ×2 (14:20→21:56)
--- NOTE | 2020-04-26 15:09 | HP ---
HISTORY AND PHYSICAL A white female failed outpatient treatment with Keflex for cellulitis of the lower extremity and left thigh and increased swelling. She is admitted for IV antibiotics for Dr. Yeung recommendations. She has a lot of diastolic CHF, swelling in her legs. She will need IV antibiotics for few days, started on IV antibiotics and admitted to the hospital. Possibly some IV Lasix, takes some diuresis off her legs. History diabetes mellitus and diabetic infection, leg infection started on IV cefazolin. Silvadene to her legs. Failed outpatient treatment as mentioned. She has third-spacing fluid, possibly do an echo for diastolic heart failure whole she is in the hospital, medications as above. Review of systems form tenderness to her legs with some mild chills, failed outpatient antibiotic and antibiotic pills. 14 POINT REVIEW OF SYSTEMS: Otherwise is negative. Labs are reviewed. Ultrasound as mentioned, negative for DVT. Temperature 98, pulse 80s, respiratory rate is 16 to 18, blood pressure is 105/62, 96% on room air. CARDIOVASCULAR: S1, S2. ENDOCRINE: BMI is over 40. LUNGS: Rales at the bases. HEMATOLOGIC: 2+ edema bilaterally. Some redness and swelling to the left leg from the toes up to the mid knee. : No suprapubic tenderness. OPHTHALMOLOGIC: Pupils equal, round, reactive. ASSESSMENT: Diastolic CHF. Started on some IV Lasix. Cellulitis of the left leg, IV Kefzol 1 g q.8 hours. Infectious Disease consult. Possibly echo to rule out any diastolic heart failure. Prognosis guarded. Insulin check for diabetes mellitus. Hypertension, obesity counseling. Possibly outpatient sleep apnea test is being set up. MMODL / IJN: [id number] /
[2020-04-26 16:45] LABS: Glucose,Whole Blood 306 mg/dL (75-99)
[2020-04-26 20:35] LABS: Glucose,Whole Blood 247 mg/dL (75-99)
[2020-04-26] MEDS: ATORVASTATIN 10 MG TAB PO SCH (21:56)
--- NOTE | 2020-04-26 23:14 | P.CONS ---
History of Present Illness - Reason for Consult Consult date: 04/26/20 left lower extremity cellulitis Requesting physician: Nadir Marsh - Chief Complaint left leg swelling left leg swelling and pain x few days - History of Present Illness patient is 65-year-old female who was recently evaluated in the outpatient setting by her primary care physician patient was diagnosed her with left lower extremity cellulitis has been treated with oral antibiotic however the patient not sure about the name patient mentioned she did have a follow-up with her primary physician yesterday she was originally no significant improvement subsequently has been admitted directly to the hospital for IV antibiotics patient was started on naficilin and infectious disease was consulted for further management of antibiotic therapy, patient mentioned she having more swelling and redness the left lower extremity over the last week and half patient denies having history of any trauma patient been combining of pain in the left leg more of a dull aching at times sharp 5-6 out of 10 and no radiation patient currently didn't have any wound or any drainage patient did have some chills but denies high-grade fever no chest pain shortness with a cough no abdominal pain and no diarrhea Review of Systems Positive point has been mentioned in the HPI rest of the systems are negative Past Medical History Past Medical History: Asthma, Diabetes Mellitus, Deep Vein Thrombosis (DVT), H ypertension, Renal Disease Additional Past Medical History / Comment(s): FX RT PATELLA- ABRASION/LACERATION,ABRASION LT KNEE, RT HAND,STAGE 2 KIDNEY DISEASE, HX OF H- PYLORI, DVT LEFT LEG, STATES REACTIVE ASTHMA DUE TO ALLERGIES, BACK PAIN, HX OF PUNCTURED BOWEL DURING COLONOSCOPY IN 2006. , HX OF INJURY LEFT LEG A CHILD WITH 300 + STITCHES. History of Any Multi-Drug Resistant Organisms: None Reported Past Surgical History: Section, Cholecystectomy, Hysterectomy Additional Past Surgical History / Comment(s): X2. Past Anesthesia/Blood Transfusion Reactions: No Reported Reaction Past Psychological History: No Psychological Hx Reported Smoking Status: Never smoker Past Alcohol Use History: None Reported Additional Past Alcohol Use History / Comment(s): EXPOSURE TO 2ND HAND SMOKE CHILD AND ADULT. Past Drug Use History: None Reported - Past Family History Father Family Medical History: No Reported History Mother Family Medical History: Renal Disease Additional Family Medical History / Comment(s): MITRAL STENOSIS Medications and Allergies Home Medications Medication Instructions Recorded Confirmed Type Aspirin [Adult Low Dose Aspirin EC] 81 mg PO BID 10/04/19 04/25/20 History lisinopriL [Zestril] 10 mg PO DAILY 10/04/19 04/25/20 History Ascorbic Acid [Vitamin C] 500 mg PO Q48H 04/25/20 04/25/20 History Atorvastatin [Lipitor] 20 mg PO HS 04/25/20 04/25/20 History Furosemide [Lasix] 10 mg PO DAILY 04/25/20 04/25/20 History Insulin Regular, Human [NovoLIN R] 12 unit SQ TID-W/MEALS 04/25/20 04/25/20 History Melatonin 2mg 2 mg PO HS PRN 04/25/20 04/25/20 History Silver Sulfadiazine [SSD 1% Cream] 1 applic TOPICAL BID 04/25/20 04/25/20 History Sulfamethox-Tmp 800-160Mg [Bactrim 1 tab PO BID 04/25/20 04/25/20 History DS 800-160 mg] Vitamin B Complex 1 tab PO DAILY 04/25/20 04/25/20 History Insulin NPH Hum/Reg Insulin Hm 60 unit SQ BID 04/26/20 04/26/20 History [NovoLIN 70-30 100 UNIT/ML VIAL] Allergies Allergy/AdvReac Type Severity Reaction Status Date / Time erythromycin base AdvReac Unknown rash,States Verified 10/04/19 09:33 "it does not work on me" hydrocodone [From [place]] AdvReac N/V, Verified 10/04/19 09:33 ITCHING, "TONGUE FEELS THICK" demerol Allergy Severe Anaphylaxis Uncoded 04/15/18 10:57 darvocet Allergy Confusion Uncoded 04/15/18 10:57 Physical Exam Vitals: Vital Signs Temp Pulse Resp BP Pulse Ox 04/26/20 07:00 98.0 F 84 16 105/62 96 04/26/20 02:15 98.2 F 75 106/61 96 04/25/20 19:35 97.9 F 97 112/68 95 04/25/20 15:00 98.5 F 73 18 133/73 97 04/25/20 13:58 18 04/25/20 12:16 98.9 F 83 18 148/77 98 Intake and Output 04/25/20 04/26/20 04/26/20 22:59 06:59 14:59 Intake Total 480 Balance 480 Intake: Oral 480 Other: Voiding Method Toilet Toilet # Voids 1 1 GENERAL DESCRIPTION: an elderly female lying in bed, no distress. No tachypnea or accessory muscle of respiration use. HEENT: Shows Pallor , no scleral icterus. Oral mucous membrane is dry. No pharyngeal erythema or thrush NECK: Trachea central, no thyromegaly. LUNGS: Unlabored breathing. Clear to auscultation anteriorly. No wheeze or crackle. HEART: S1, S2, regular rate and rhythm. No loud murmur ABDOMEN: Soft, no tenderness , guarding or rigidity, no organomegaly EXTREMITIES: left leg has swelling more than the right leg and more swelling to the cough area slightly tender to touch SKIN: No rash, no masses palpable. NEUROLOGICAL: The patient is awake, alert, oriented x3, mood and affect normal. Results CBC & Chem 7: 04/26/20 06:31 04/26/20 06:31 Labs: Abnormal Lab Results - Last 24 Hours (Table) 04/25/20 04/25/20 04/25/20 Range/Units 16:36 21:11 21:11 RBC 3.72 L (3.80-5.40) m/uL Plt Count 101 L (150-450) k/uL Sodium 131 L (137-145) mmol/L Glucose 311 H (74-99) mg/dL POC Glucose (mg/dL) 383 H (75-99) mg/dL Hemoglobin A1c (4.0-6.0) % Total Bilirubin (0.2-1.3) mg/dL Alkaline Phosphatase 167 H (38-126) U/L Total Protein 5.5 L (6.3-8.2) g/dL Albumin 2.7 L (3.5-5.0) g/dL 04/25/20 04/26/20 04/26/20 Range/Units 21:11 00:16 06:09 RBC (3.80-5.40) m/uL Plt Count (150-450) k/uL Sodium (137-145) mmol/L Glucose (74-99) mg/dL POC Glucose (mg/dL) 241 H 203 H (75-99) mg/dL Hemoglobin A1c 10.7 H (4.0-6.0) % Total Bilirubin (0.2-1.3) mg/dL Alkaline Phosphatase (38-126) U/L Total Protein (6.3-8.2) g/dL Albumin (3.5-5.0) g/dL 04/26/20 04/26/20 04/26/20 Range/Units 06:31 06:31 06:53 RBC (3.80-5.40) m/uL Plt Count 115 L (150-450) k/uL Sodium 132 L (137-145) mmol/L Glucose 219 H (74-99) mg/dL POC Glucose (mg/dL) 248 H (75-99) mg/dL Hemoglobin A1c (4.0-6.0) % Total Bilirubin 1.4 H (0.2-1.3) mg/dL Alkaline Phosphatase 168 H (38-126) U/L Total Protein 5.6 L (6.3-8.2) g/dL Albumin 2.8 L (3.5-5.0) g/dL Assessment and Plan Assessment: 1- patient has been admitted to the hospital with increasing swelling to the left lower extremity along with some redness and pain failing outpatient oral diabetic therapy with concern for cellulitis however in view of significant swelling will have to make sure there is no evidence of any DVT to the left leg or any evidence of fluid collection (1) Left leg swelling Current Visit: Yes Status: Acute Code(s): M79.89 - OTHER SPECIFIED SOFT TISSUE DISORDERS SNOMED Code(s): 572995609 (2) Left leg cellulitis Current Visit: Yes Status: Acute Code(s): L03.116 - CELLULITIS OF LEFT LOWER LIMB SNOMED Code(s): 020614837 Plan: 1- left lower extremity Dopplers has been ordered to rule out DVT and also pay special attention to the left calf to make sure no evidence of any fluid collection 2- discontinue ampicillin 3- started the patient on cefazolin 2 g every 8 hours 4- if the ultrasound is negative for DVT to apply Matt wrap from just above the toe to below the knee We will follow on clinical condition and cultures to further adjust medication if needed Thank you for this consultation will follow this patient with you
[2020-04-27 07:07] LABS: Glucose,Whole Blood 126 mg/dL (75-99)
[2020-04-27 07:13] VITALS: PULSE 94; RESP 17; TEMP 97.9
[2020-04-27] MEDS: INSULN ASP PRT/INSULIN ASPART 100 UNIT/ML 10 ML VIAL SQ SCH ×2 (07:20→07:26)
[2020-04-27] MEDS: INSULIN ASPART (NovoLOG) 100 UNIT/ML VIAL SQ SCH (07:22)
[2020-04-27] MEDS: ASPIRIN 81 MG PO SCH (07:24)
[2020-04-27] MEDS: lisinopriL 10 MG TAB PO SCH (07:24)
[2020-04-27] MEDS: ASCORBIC ACID 500 MG TAB PO SCH (07:25)
[2020-04-27] MEDS: FUROSEMIDE 10 MG/ML 2 ML VIAL IV SCH (07:25)
[2020-04-27 08:11] VITALS: BP 129/62
[2020-04-27] MEDS ORDERED: NON FORMULARY DRUG (Vitamin B Complex [Vitamin B Complex] 1 TAB) PO SCH (09:00)
[2020-04-27] MEDS ORDERED: FUROSEMIDE 20 MG TAB PO SCH ×2 (09:00)
--- NOTE | 2020-04-27 11:06 | PN ---
PROGRESS NOTE DATE OF SERVICE: 04/27/2020 REASON FOR FOLLOWUP: Left lower extremity cellulitis. INTERVAL HISTORY: The patient is currently afebrile. The patient is breathing comfortably. Denies having any chest pain, shortness of breath or cough. Overall pain in the left leg has improved. PHYSICAL EXAMINATION: Blood pressure 121/62 with a pulse of 94, temperature 97.9. She is 98% on room air. General description is an elderly female, lying in bed in no distress. RESPIRATORY SYSTEM: Unlabored breathing, clear to auscultation anteriorly. HEART: S1, S2. Regular rate and rhythm. ABDOMEN: Soft, no tenderness. Left leg swelling persists, no redness. LABS: No new labs have been obtained today. The lower extremity Doppler has been negative for DVT. DIAGNOSTIC IMPRESSION AND PLAN: Patient with left lower extremity cellulitis. Overall improvement on cefazolin. Finish therapy with oral Keflex 500 mg 3 times a day for about a week along with Matt wrap for compression. MMODL / IJN: [id number] /
--- NOTE | 2020-04-27 13:31 | ECHOF ---
Referral Reason:chf MEASUREMENTS -------- HEIGHT: 167.6 cm WEIGHT: 140.2 kg BP: IVSd: 1.7 cm (0.6 - 1.1) LVIDd: 3.0 cm (3.9 - 5.3) LVPWd: 1.7 cm (0.6 - 1.1) IVSs: 1.9 cm LVIDs: 1.3 cm LVPWs: 2.0 cm Ao Diam: 3.1 cm (2.0 - 3.7) AV Cusp: 2.1 cm (1.5 - 2.6) LA Diam: 3.3 cm (2.7 - 3.8) MV E Jose A: 0.85 m/s MV DecT: 262 ms MV A Jose A: 0.96 m/s MV E/A Ratio: 0.89 RAP: 5.00 mmHg RVSP: 14.52 mmHg FINDINGS -------- Sinus rhythm with extra systolic beats. This was a technically difficult study with suboptimal views. The left ventricular size is normal. There is severe concentric left ventricular hypertrophy. Ove rall left ventricular systolic function is normal with, an EF between 55 - 60 %. The RV was not well visualized. The left atrium was not well visualized. The right atrium was not well visualized. Lumason used Unable to visualize the septum. The aortic valve was not well visualized. The mitral valve was not well visualized. There is trace mitral regurgitation. The tricuspid valve was not well visualized. Trace tricuspid regurgitation present. Right ventric ular systolic pressure is normal at < 35 mmHg. There is no pulmonic regurgitation present. The aortic root size is normal. IVC Not well visulized. There is no pericardial effusion. CONCLUSIONS -------- 1. There is severe concentric left ventricular hypertrophy. 2. Overall left ventricular systolic function is normal with, an EF between 55 - 60 %. 3. Lumason used 4. There is trace mitral regurgitation. 5. Trace tricuspid regurgitation present. PARTY PLAN DEMONSTRATOR: Mandie Peña RDCS
[2020-04-27] MEDS ORDERED: CEPHALEXIN 500 MG CAP PO SCH (16:00)
--- NOTE | 2020-04-27 16:39 | DS ---
DISCHARGE SUMMARY DISCHARGE MEDICATIONS: 1. Keflex 500 mg t.i.d. for 15 days. 2. Lasix 20 mg daily. 3. Zestril 10 mg daily. 4. Aspirin 81 mg daily. 5. Lipitor 20 mg daily. 6. Silver sulfadiazine cream b.i.d. to the legs. 7. Vitamin B complex daily. 8. Melatonin 2 mg at night. 9. Novolin R 12 units subcutaneously t.i.d. 10.Novolin 70/30, 60 units b.i.d. CONDITION: Stable. PROGNOSIS: Guarded. Ambulate as tolerated. This is a 65-year-old white female who was admitted with congestive heart failure, cellulitis of the left leg. She was placed on IV Kefzol for 24 to 48 hours and IV Lasix to get diastolic heart failure fluid off her legs and treat cellulitis of the left leg. She is greatly improved with IV antibiotics in just 1 to 2 days. She was switched to oral medicine. She will follow up as an outpatient. She had hypertension acceleration, treated with increasing doses of Lasix. She will follow up in office in a week or two. Condition stable. Prognosis guarded. Obesity counseling, risk factor modification. Diet regular. MMODL / IJN: [id number] /
[2020-04-28] MEDS ORDERED: FUROSEMIDE 20 MG TAB PO SCH (09:00)
--- NOTE | 2020-04-30 11:17 | CDI ---
Documentation Clarification Form Date: 04/30/20 From: Lindsay Lazar CCS Phone: If you have a question about this query, please contact Misty Titus, Clinic Office Coordinator at [phone] between 8am and 5pm. Admit Date: 04/25/20 Discharge Date: 04/27/20 Patient Name: Amanda Paredes Visit Number: [id number] ATTENTION: The Clinical Documentation Specialists (CDI) and [facility] Coding Staff appreciate your assistance in clarifying documentation. Please respond to the clarification below the line at the bottom and electronically sign. The CDI & [facility] Coding staff will review the response and follow-up if needed. Please note: Queries are made part of the Legal Health Record. If you have any questions, please contact the author of this message via ITS. Dear Dr. Marsh, Diastolic CHF is documented in the H&P, DS. History/Risk Factors: DM, HTN, CKD, Obesity Clinical Indicators: Fluid on legs VS/Pulse OX: BP 105/62, RR 18, FL 80, O2 Sat 96 BNP: 232 Echocardiogram Results: The left ventricular size is normal.There is severe concentric left ventricular hypertrophy.Overall left ventricular systolic function is normal with, an EF between 55 - 60 %. Treatment: Lasix 20 mg IV Q12HR In your professional opinion, can you please clarify the acuity of diastolic CHF if known? Diastolic Heart Failure: Acute Chronic Acute on Chronic Unable to Determine Other, please specify MTDD
--- NOTE | 2020-05-04 10:44 | CDI ---
Documentation Clarification Form Date: 05/04/20 From: Lindsay Lazar CCS Phone: If you have a question about this query, please contact Misty Titus, Javascript Developer at [phone] between 8am and 5pm. Admit Date: 04/25/20 Discharge Date: 04/27/20 Patient Name: Amanda Paredes Visit Number: [id number] ATTENTION: The Clinical Documentation Specialists (CDI) and [facility] Coding Staff appreciate your assistance in clarifying documentation. Please respond to the clarification below the line at the bottom and electronically sign. The CDI & [facility] Coding staff will review the response and follow-up if needed. Please note: Queries are made part of the Legal Health Record. If you have any questions, please contact the author of this message via ITS. Dear Dr. Marsh, Diastolic CHF is documented in the H&P, DS. DS documents:This is a 65-year-old white female who was admitted with congestive heart failure, cellulitis of the left leg.She was placed on IV Kefzol for 24 to 48 hours and IV Lasix to get diastolic heart failure fluid off her legs and treat cellulitis of the left leg History/Risk Factors: DM, HTN, CKD, Obesity Clinical Indicators: Fluid on legs VS/Pulse OX: BP 105/62, RR 18, MS 80, O2 Sat 96 BNP: 232 Echocardiogram Results: The left ventricular size is normal.There is severe concentric left ventricular hypertrophy.Overall left ventricular systolic function is normal with, an EF between 55 - 60 %. Treatment: Lasix 20 mg IV Q12HR In your professional opinion, can you please clarify the acuity of diastolic CHF if known? Diastolic Heart Failure: Acute Chronic Acute on Chronic Unable to Determine Other, please specify MTDD
--- NOTE | 2020-05-08 13:40 | CDI ---
Documentation Clarification Form Date: 05/08/20 From: Lindsay Lazar CCS Phone: If you have a question about this query, please contact Misty Titus, Media Relations Manager at [phone] between 8am and 5pm. Admit Date: 04/25/20 Discharge Date: 04/27/20 Patient Name: Amanda Paredes Visit Number: [id number] ATTENTION: The Clinical Documentation Specialists (CDI) and [facility] Coding Staff appreciate your assistance in clarifying documentation. Please respond to the clarification below the line at the bottom and electronically sign. The CDI & [facility] Coding staff will review the response and follow-up if needed. Please note: Queries are made part of the Legal Health Record. If you have any questions, please contact the author of this message via ITS. Dear Dr. Marsh, Diastolic CHF is documented in the H&P, DS. DS documents:This is a 65-year-old white female who was admitted with congestive heart failure, cellulitis of the left leg.She was placed on IV Kefzol for 24 to 48 hours and IV Lasix to get diastolic heart failure fluid off her legs and treat cellulitis of the left leg History/Risk Factors: DM, HTN, CKD, Obesity Clinical Indicators: Fluid on legs VS/Pulse OX: BP 105/62, RR 18, VA 80, O2 Sat 96 BNP: 232 Echocardiogram Results: The left ventricular size is normal.There is severe concentric left ventricular hypertrophy.Overall left ventricular systolic function is normal with, an EF between 55 - 60 %. Treatment: Lasix 20 mg IV Q12HR In your professional opinion, can you please clarify the acuity of diastolic CHF if known? Diastolic Heart Failure: Acute Chronic Acute on Chronic Unable to Determine Other, please specify MTDD
--- NOTE | 2020-05-10 10:34 | PN ---
PROGRESS NOTE ADDENDUM: DIAGNOSES: Acute diastolic CHF. MMODL / IJN: [id number] /
== END 2020-04-27 11:11 | disposition home or self-care (01) | DRG 637 ==
LOC: 4SSUR 11:37
PROVIDERS: ADMIT Family Medicine; ATTEND Family Medicine
DX: E11.628 Type 2 diabetes mellitus with other skin complications (principal); I50.31 Acute diastolic (congestive) heart failure; L03.116 Cellulitis of left lower limb; I13.0 Hypertensive heart and chronic kidney disease with heart failure and stage 1 through stage 4 chronic kidney disease, or unspecified chronic kidney disease; Z68.42 Body mass index [BMI] 45.0-49.9, adult; E11.22 Type 2 diabetes mellitus with diabetic chronic kidney disease; Z79.4 Long term (current) use of insulin; E66.9 Obesity, unspecified; G47.30 Sleep apnea, unspecified; J45.909 Unspecified asthma, uncomplicated; N18.2 Chronic kidney disease, stage 2 (mild); Z71.3 Dietary counseling and surveillance; Z79.82 Long term (current) use of aspirin; Z79.899 Other long term (current) drug therapy; Z87.828 Personal history of other (healed) physical injury and trauma; Z86.718 Personal history of other venous thrombosis and embolism; Z90.710 Acquired absence of both cervix and uterus; Z90.49 Acquired absence of other specified parts of digestive tract; Z88.1 Allergy status to other antibiotic agents; Z88.5 Allergy status to narcotic agent; Z82.49 Family history of ischemic heart disease and other diseases of the circulatory system
CPT/HCPCS: 80053; 83036; 83880; 84443; 85025; 93306

== ENCOUNTER → 2020-07-20 | Outpatient (CLI) | payer MEDICARE, OTHER ==
[2020-07-20 16:14] LABS: Albumin 2.9 g/dL (3.80-4.90); Albumin/Globulin Ratio 1.21 (1.60-3.17); Anion Gap 6.5 mmol/L (4.00-12.00); BUN/Creat Ratio 21.25 Ratio (12.00-20.00); Calcium 8.5 mg/dL (8.7-10.3); Carbon Dioxide 25.5 mmol/L (21.6-31.8); Chol/HDL Ratio 2.48; Globulin 2.4 g/dL (1.6-3.3); LDL Cholesterol,Calculated 99.8 mg/dL (0.0-131.0); Magnesium 1.9 mg/dL (1.5-2.4); Non-African American GFR(CKD) 76.8 (60.0-200.0); Potassium 4.4 mmol/L (3.5-5.5); Total Bilirubin 0.9 mg/dL (0.3-1.2); Total Protein 5.3 g/dL (6.2-8.2); VLDL Calculation 17.2 mg/dL (5.00-40.00)
== END | disposition home or self-care (01) ==
LOC: LABWHC1 07:45
PROVIDERS: ATTEND Nurse Practitioner Adult Health
DX: I10 Essential (primary) hypertension (principal); E78.5 Hyperlipidemia, unspecified
CPT/HCPCS: 36415; 80053; 80061; 83735; 84443; 84481

== ENCOUNTER → 2020-08-07 | Outpatient (CLI) | payer MEDICARE, OTHER ==
--- NOTE | 2020-08-07 09:30 | US ---
EXAMINATION TYPE: US kidneys/renal and bladder DATE OF EXAM: 08/07/2020 COMPARISON: NONE CLINICAL HISTORY: N39.0 Recurrent UTI. recurrent UTI's EXAM MEASUREMENTS: Right Kidney: 13.8 x 4.7 x 4.0 cm Left Kidney: 12.4 x 5.4 x 6.1 cm Technical limitations due to patient's body habitus Right Kidney: no evidence of hydronephrosis Left Kidney: no evidence of hydronephrosis Bladder: appears wnl as visualized Bilateral Jets seen: no *Spleen = 15.2cm There is no evidence for hydronephrosis at this point in time. No nephrolithiasis is seen. No tamika s are identified. The urinary bladder is anechoic. Bilateral ureteral jets are seen. IMPRESSION: No distinct abnormality seen.
== END | disposition home or self-care (01) ==
LOC: RADUSWWP 08:46
PROVIDERS: ATTEND Urology
DX: N39.0 Urinary tract infection, site not specified (principal)
CPT/HCPCS: 76770

== ENCOUNTER 2020-10-03 11:43 | Inpatient (IN) | payer MEDICARE, OTHER ==
[2020-10-03] MEDS ORDERED: MELATONIN 1 MG TAB PO PRN (15:39)
[2020-10-03 16:19] LABS: Basophils % (A) 1 %; Eosinophils # (A) 0.2 k/uL (0-0.7); Eosinophils % (A) 3 %; HCT 33.8 % (34.0-46.0); HGB 11.6 gm/dL (11.4-16.0); Lymphocytes # (A) 1.2 k/uL (1.0-4.8); Lymphocytes % (A) 22 %; MCH 32.8 pg (25.0-35.0); MCHC 34.4 g/dL (31.0-37.0); MCV 95.5 fL (80.0-100.0); Mean Platelet Volume 8.9; Monocytes # (A) 0.5 k/uL (0-1.0); Monocytes % (A) 10 %; Neutrophils # (A) 3.4 k/uL (1.3-7.7); Neutrophils % (A) 63 %; Platelet Count 134 k/uL (150-450); RBC 3.54 m/uL (3.80-5.40); RDW 13.7 % (11.5-15.5); WBC 5.5 k/uL (3.8-10.6)
[2020-10-03 16:34] LABS: ALT 16 U/L (4-34); AST 41 U/L (14-36); African American GFR (CKD) >90 (>60 ml/min/1.73 sqM); Albumin 2.5 g/dL (3.5-5.0); Alkaline Phosphatase 134 U/L (38-126); Anion Gap 0 mmol/L; Blood Urea Nitrogen 16 mg/dL (7-17); Calcium 8.4 mg/dL (8.4-10.2); Carbon Dioxide 28 mmol/L (22-30); Chloride 108 mmol/L (98-107); Glucose 55 mg/dL (74-99); Lipase 31 U/L (23-300); Non-African American GFR(CKD) 83 (>60 ml/min/1.73 sqM); Potassium 3.8 mmol/L (3.5-5.1); Sodium 136 mmol/L (137-145); Total Bilirubin 1.1 mg/dL (0.2-1.3); Total Protein 5.6 g/dL (6.3-8.2)
--- NOTE | 2020-10-03 17:01 | CT ---
EXAMINATION TYPE: CT abdomen pelvis wo con DATE OF EXAM: 10/03/2020 COMPARISON: None INDICATION: abdominal pain and constipation DLP: 1333 mGycm, Automated exposure control for dose reduction was used. CONTRAST: 0 mL of Isovue 300. Study performed without Oral Contrast TECHNIQUE: Axial images were obtained from above the diaphragm to the pubic rami in the axial plane a t 5 mm thick sections. Reconstructed images are reviewed on the computer in the coronal plane. FINDINGS: Ascites is present. Limited CT sections are obtained the lung bases. The lung bases are clear. CT ABDOMEN: Liver: Normal Spleen: Normal Pancreas: appears atrophic Adrenal glands: The adrenal glands are normal. Gallbladder: Normal Kidneys: No masses are evident. No hydronephrosis is present. No cysts are present. A punctate dayo cification may be present measuring 0.3 cm in the proximal left ureter. Gonadal vein phlebolith could be considered. Series 3 image 39. Aorta: Vascular calcification is within the aorta. Inferior vena cava: Normal. CT PELVIS: There is anterior abdominal wall hernia containing loops of bowel. Inflammatory changes ar e through the subcutaneous tissues. Loops of bowel within the abdomen and pelvis are normal. Studies performed without oral contrast limiting bowel evaluation. Appendix: Not identified. No suspicious dilated tubular structure inflammatory changes are evident. Urinary bladder: Normal. Genitourinary structures: Uterus is normal. Adnexal regions are clear. Free fluid is within the pelvi s. Osseous structures: No suspicious lytic or sclerotic lesions. IMPRESSIONS: 1. Ascites. 2. Correlate for possible left proximal ureteral stone. No hydronephrosis or hydroureter is evident h owever. Differential diagnosis could include phlebolith
--- NOTE | 2020-10-03 17:23 | XR ---
EXAMINATION TYPE: XR chest 2V DATE OF EXAM: 10/03/2020 COMPARISON: 04/16/2018 HISTORY: Rehabilitation placement TECHNIQUE: 2 views FINDINGS: Heart size is normal. Lungs are clear of consolidation. There is mild coarse interstitial d ensity in the lungs. There is no heart failure. There is no pleural effusion. IMPRESSION: Coarse minimal pulmonary interstitial density increased slightly compared to old exam. Th is is suggestive of mild fibrosis. No heart failure seen.
[2020-10-03] MEDS: SODIUM CHLORIDE 0.9% 1,000 ML IV SCH (17:31)
[2020-10-03 17:32] LABS: Glucose,Whole Blood 71 mg/dL (75-99)
[2020-10-03] MEDS: INSULIN REGULAR 100 UNIT/ML VIAL SQ SCH (17:32)
[2020-10-03 18:36] LABS: Appearance,Urine Clear (Clear); Bilirubin,Urine Negative (Negative); Blood,Urine Trace (Negative); Color,Urine Yellow; Glucose,Urine (UA) Negative (Negative); Ketones,Urine Negative (Negative); Leukocyte Esterase,Urine Negative (Negative); Mucus,Urine Rare /hpf; Nitrite,Urine Negative (Negative); Protein,Urine 2+ (Negative); RBC,Urine <1 /hpf (0-5); Specific Gravity,Urine 1.012 (1.001-1.035); Squamous Epithelial Cell,Urine 3 /hpf (0-4); WBC,Urine 1 /hpf (0-5)
[2020-10-03] MEDS ORDERED: KETOROLAC 15 MG/ML 1 ML VIAL IVP PRN (20:35)
[2020-10-03] MEDS ORDERED: ONDANSETRON 4 MG/2 ML VIAL IVP PRN (20:35)
[2020-10-03] MEDS ORDERED: ATORVASTATIN 20 MG TAB PO SCH (21:00)
[2020-10-03 21:14] LABS: Glucose,Whole Blood 143 mg/dL (75-99)
[2020-10-03] MEDS: ASPIRIN 81 MG PO SCH (21:44)
[2020-10-03] MEDS: METOPROLOL TARTRATE 25 MG TAB PO SCH (21:45)
[2020-10-03] MEDS: PRAVASTATIN SODIUM 20 MG TAB PO SCH (21:45)
[2020-10-03] MEDS: INSULN ASP PRT/INSULIN ASPART 100 UNIT/ML 10 ML VIAL SQ SCH (22:59)
[2020-10-03 23:04] LABS: Glucose,Whole Blood 158 mg/dL (75-99)
[2020-10-04 00:34] LABS: Hemoglobin A1C 6.7 % (4.0-6.0)
[2020-10-04 06:21] LABS: Basophils % (A) 1 %; Eosinophils # (A) 0.2 k/uL (0-0.7); Eosinophils % (A) 4 %; HCT 32.6 % (34.0-46.0); HGB 10.9 gm/dL (11.4-16.0); Lymphocytes # (A) 1.4 k/uL (1.0-4.8); Lymphocytes % (A) 31 %; MCHC 33.3 g/dL (31.0-37.0); MCV 96.3 fL (80.0-100.0); Mean Platelet Volume 8.4; Monocytes # (A) 0.4 k/uL (0-1.0); Monocytes % (A) 8 %; Neutrophils # (A) 2.4 k/uL (1.3-7.7); Neutrophils % (A) 53 %; Platelet Count 130 k/uL (150-450); RBC 3.39 m/uL (3.80-5.40); RDW 13.6 % (11.5-15.5); WBC 4.6 k/uL (3.8-10.6)
[2020-10-04 06:35] LABS: ALT 15 U/L (4-34); AST 41 U/L (14-36); African American GFR (CKD) >90 (>60 ml/min/1.73 sqM); Albumin 2.2 g/dL (3.5-5.0); Alkaline Phosphatase 120 U/L (38-126); Anion Gap -1 mmol/L; Blood Urea Nitrogen 14 mg/dL (7-17); Carbon Dioxide 28 mmol/L (22-30); Chloride 107 mmol/L (98-107); Glucose 114 mg/dL (74-99); Non-African American GFR(CKD) 83 (>60 ml/min/1.73 sqM); Potassium 3.9 mmol/L (3.5-5.1); Sodium 134 mmol/L (137-145); Total Bilirubin 1.2 mg/dL (0.2-1.3)
[2020-10-04 07:37] LABS: Glucose,Whole Blood 122 mg/dL (75-99)
[2020-10-04] MEDS: INSULN ASP PRT/INSULIN ASPART 100 UNIT/ML 10 ML VIAL SQ SCH ×2 (08:44→20:58)
[2020-10-04] MEDS: ASPIRIN 81 MG PO SCH ×2 (08:48→16:19)
[2020-10-04] MEDS: FUROSEMIDE 20 MG TAB PO SCH (08:48)
[2020-10-04] MEDS: METOPROLOL TARTRATE 25 MG TAB PO SCH ×2 (08:48→20:48)
[2020-10-04] MEDS: lisinopriL 10 MG TAB PO SCH (08:48)
[2020-10-04] MEDS: INSULIN REGULAR 100 UNIT/ML VIAL SQ SCH ×3 (08:49→17:45)
[2020-10-04] MEDS: SODIUM CHLORIDE 0.9% 1,000 ML IV SCH ×2 (08:50→20:10)
[2020-10-04 12:07] LABS: Glucose,Whole Blood 200 mg/dL (75-99)
--- NOTE | 2020-10-04 12:35 | P.CONS ---
History of Present Illness - Reason for Consult Consult date: 10/04/20 Cellulitis abdominal - History of Present Illness HISTORY OF PRESENT ILLNESS This is a 65-year-old female known to ID service as she was previously treated for left lower extremity cellulitis, March 2020. She also has history of diabetes mellitus, hypertension, chronic kidney disease stage II, COPD. Patient complains of leg swelling but denies any redness. 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 She is complaining of right lower quadrant discomfort and itchy sensation to the area. She denies having any chest pain. She has chronic shortness of breath and chronic cough. Chest x-ray reveals coarse minimal pulmonary interstitial density increased slightly compared to old exam, suggesting mild fibrosis. No heart failure. CAT scan of the abdomen and pelvis reveals ascites. Correlate for possible left proximal ureteral stone. No hydronephrosis or hydroureter. She was afebrile, heart rate 84, blood pressure 142/86 and pulse ox 97% on room air. Laboratory revealed WBC 5.5, hemoglobin 11.6, platelet count 134. Electrodes unremarkable. Creatinine 0.76. Total bilirubin 1.1, AST 41, ALT 16, alkaline phosphatase 134. ProBNP 529. Troponin negative. Urinalysis clear without infection. Patient was seen by GI and scheduled for diagnostic paracentesis. REVIEW OF SYSTEMS Constitutional: No fever, no chills, no night sweats. No weight change. No weakness, fatigue or lethargy. EENT: No headache. No nasal drainage or congestion. No epistaxis. No sore throat. Lungs: Reports chronic shortness of breath, reports chronic cough, no sputum production. No wheezing. Cardiovascular: No chest pain, no lower extremity edema. No lightheadedness or dizziness. No syncopal episodes. Abdominal: No abdominal pain. No nausea, vomiting. No diarrhea. No constipati on. No loss of appetite. Genitourinary: No dysuria, increased frequency, urgency. No urinary retention. Musculoskeletal: No myalgias. No muscle weakness. Integumentary: Reports wounds, cellulitis. No rash or pruritus. Neurologic: No aphasia. No facial droop. No change in mentation. Endocrine: No abnormal blood sugars. PHYSICAL EXAMINATION Gen: This is a morbidly obese female. She is resting in chair and appears to be comfortable. No respiratory distress is noted. HEENT: Head is atraumatic, normocephalic. Pupils equal, round. Sclerae is anicteric. NECK: Supple. No JVD. No lymphadenopathy. No thyromegaly. LUNGS: Clear to auscultation. No wheezes or rhonchi. No intercostal retractions. No accessory muscle usage. HEART: Regular rate and rhythm. No murmur. ABDOMEN: Morbidly obese Soft. Bowel sounds are present. No masses. Mild tenderness to the right lower quadrant/abdominal apron area with mild erythema. Anasarca abdominal apron. EXTREMITIES: Bilateral 2+ pedal edema slightly worse on the right and left. No calf tenderness. No significant erythema. NEUROLOGICAL: Patient is awake, alert and oriented x3. Cranial nerves 2 through 12 are grossly intact. ASSESSMENT Abdominal wall cellulitis Ascites PLAN Kefzol increased to 2 g IV piggyback every 8 hours Plan for Keflex at the time of discharge Paracentesis scheduled, obtain fluid culture, doubt spontaneous bacterial peritonitis Continue supportive care Further recommendations based on patient's clinical course Thank you kindly for this consultation. The above dictated assessment and findings were discussed with Dr. Yeung. The impression and plan of care have been directed as dictated. Gilda Zhao nurse practitioner acting as scribe for Dr. Yeung. Past Medical History Past Medical History: COPD, Diabetes Mellitus, Hypertension, Renal Disease Additional Past Medical History / Comment(s): STAGE 2 KIDNEY DISEASE, HX OF H-PYLORI, HX OF PUNCTURED BOWEL DURING COLONOSCOPY IN 2006 History of Any Multi-Drug Resistant Organisms: None Reported Past Surgical History: Section, Cholecystectomy, Hysterectomy, Orthopedic Surgery Additional Past Surgical History / Comment(s): BROKEN PATELLA WITH REPAIR Past Anesthesia/Blood Transfusion Reactions: No Reported Reaction Past Psychological History: No Psychological Hx Reported Smoking Status: Never smoker Past Alcohol Use History: None Reported Past Drug Use History: None Reported - Past Family History Father Family Medical History: No Reported History Mother Family Medical History: COPD, Renal Disease Additional Family Medical History / Comment(s): MITRAL STENOSIS Medications and Allergies Home Medications Medication Instructions Recorded Confirmed Type Aspirin [Adult Low Dose Aspirin EC] 81 mg PO BID 10/04/19 10/03/20 History lisinopriL [Zestril] 10 mg PO DAILY 10/04/19 10/03/20 History Ascorbic Acid [Vitamin C] 500 mg PO DAILY 04/25/20 10/03/20 History Insulin Regular, Human [NovoLIN R] 12 unit SQ TID-W/MEALS 04/25/20 10/03/20 History Melatonin 2mg 2 mg PO HS PRN 04/25/20 10/03/20 History Silver Sulfadiazine [SSD 1% Cream] 1 applic TOPICAL BID 04/25/20 10/03/20 History Vitamin B Complex 1 tab PO DAILY 04/25/20 10/03/20 History Insulin NPH Hum/Reg Insulin Hm 60 unit SQ BID 04/26/20 10/03/20 History [NovoLIN 70-30 100 UNIT/ML VIAL] Furosemide [Lasix] 20 mg PO DAILY 90 Days #90 tab 04/27/20 10/03/20 Rx Cholecalciferol [Vitamin D3] 400 units PO DAILY 10/03/20 10/03/20 History Metoprolol Tartrate [Lopressor] 25 mg PO BID 10/03/20 10/03/20 History Pravastatin Sodium [Pravachol] 10 mg PO HS 10/03/20 10/03/20 History Allergies Allergy/AdvReac Type Severity Reaction Status Date / Time erythromycin base AdvReac Unknown rash,States Verified 10/03/20 12:35 "it does not work on me" hydrocodone [From [place]] AdvReac N/V, Verified 10/03/20 12:35 ITCHING, "TONGUE FEELS THICK" demerol Allergy Severe Anaphylaxis Uncoded 10/03/20 12:35 darvocet Allergy Confusion Uncoded 10/03/20 12:35 Physical Exam Vitals: Vital Signs Temp Pulse Resp BP Pulse Ox 10/04/20 08:30 98.9 F 78 16 122/75 96 10/04/20 01:47 97.9 F 79 18 132/83 95 10/03/20 20:00 98.1 F 74 18 117/58 96 10/03/20 12:50 98.5 F 84 16 142/86 97 Intake and Output 10/03/20 10/04/20 10/04/20 22:59 06:59 14:59 Other: # Voids 1 2 # Bowel Movements 1 1 Results CBC & Chem 7: 10/04/20 06:03 10/04/20 06:03 Labs: Abnormal Lab Results - Last 24 Hours (Table) 10/03/20 10/03/20 10/03/20 Range/Units 15:58 15:58 15:58 RBC 3.54 L (3.80-5.40) m/uL Hgb (11.4-16.0) gm/dL Hct 33.8 L (34.0-46.0) % Plt Count 134 L (150-450) k/uL Sodium 136 L (137-145) mmol/L Chloride 108 H (98-107) mmol/L Glucose 55 L (74-99) mg/dL POC Glucose (mg/dL) (75-99) mg/dL Hemoglobin A1c 6.7 H (4.0-6.0) % Calcium (8.4-10.2) mg/dL AST 41 H (14-36) U/L Alkaline Phosphatase 134 H (38-126) U/L Total Protein 5.6 L (6.3-8.2) g/dL Albumin 2.5 L (3.5-5.0) g/dL Urine Protein (Negative) Urine Blood (Negative) Urine Mucus (None) /hpf 10/03/20 10/03/20 10/03/20 Range/Units 17:30 18:16 21:12 RBC (3.80-5.40) m/uL Hgb (11.4-16.0) gm/dL Hct (34.0-46.0) % Plt Count (150-450) k/uL Sodium (137-145) mmol/L Chloride (98-107) mmol/L Glucose (74-99) mg/dL POC Glucose (mg/dL) 71 L 143 H (75-99) mg/dL Hemoglobin A1c (4.0-6.0) % Calcium (8.4-10.2) mg/dL AST (14-36) U/L Alkaline Phosphatase (38-126) U/L Total Protein (6.3-8.2) g/dL Albumin (3.5-5.0) g/dL Urine Protein 2+ H (Negative) Urine Blood Trace H (Negative) Urine Mucus Rare H (None) /hpf 10/03/20 10/04/20 10/04/20 Range/Units 23:03 06:03 06:03 RBC 3.39 L (3.80-5.40) m/uL Hgb 10.9 L (11.4-16.0) gm/dL Hct 32.6 L (34.0-46.0) % Plt Count 130 L (150-450) k/uL Sodium 134 L (137-145) mmol/L Chloride (98-107) mmol/L Glucose 114 H (74-99) mg/dL POC Glucose (mg/dL) 158 H (75-99) mg/dL Hemoglobin A1c (4.0-6.0) % Calcium 8.0 L (8.4-10.2) mg/dL AST 41 H (14-36) U/L Alkaline Phosphatase (38-126) U/L Total Protein 5.0 L (6.3-8.2) g/dL Albumin 2.2 L (3.5-5.0) g/dL Urine Protein (Negative) Urine Blood (Negative) Urine Mucus (None) /hpf 10/04/20 Range/Units 07:29 RBC (3.80-5.40) m/uL Hgb (11.4-16.0) gm/dL Hct (34.0-46.0) % Plt Count (150-450) k/uL Sodium (137-145) mmol/L Chloride (98-107) mmol/L Glucose (74-99) mg/dL POC Glucose (mg/dL) 122 H (75-99) mg/dL Hemoglobin A1c (4.0-6.0) % Calcium (8.4-10.2) mg/dL AST (14-36) U/L Alkaline Phosphatase (38-126) U/L Total Protein (6.3-8.2) g/dL Albumin (3.5-5.0) g/dL Urine Protein (Negative) Urine Blood (Negative) Urine Mucus (None) /hpf
--- NOTE | 2020-10-04 13:40 | US ---
EXAMINATION TYPE: US abdomen limited DATE OF EXAM: 10/04/2020 COMPARISON: NONE CLINICAL HISTORY: assess for fluid pocket please. Ascites check Small amount of fluid seen in RUQ IMPRESSION: 1. Small amount of free fluid within the abdomen
[2020-10-04 13:50] LABS: INR 1.2 (<1.2)
--- NOTE | 2020-10-04 14:33 | P.GSCN ---
History of Present Illness Consult date: 10/04/20 History of present illness: CHIEF COMPLAINT: Abdominal pain HISTORY OF PRESENT ILLNESS: This is a 65-year-old female with multiple medical issues including diabetes mellitus, hypertension, chronic kidney disease stage II and COPD. She has a prior surgical history of cholecystectomy, hysterectomy and 2 C-sections. Patient was a direct admit from Dr. Marsh's office for her abdominal pain. Patient initially was constipated a few days ago and is having issues with not having a bowel movement. Apparently after she was admitted to the hospital she was able to have 2 bowel movements one was large and the other small they were brown no evidence of blood. Patient also has evidence of panniculitis with erythema into the abdomen. Infectious disease is following they have placed her on IV Kefzol. Her last colonoscopy was about 3 years ago. Patient reports no significant abnormalities. Her computed tomography scan of the abdomen and pelvis shows ascites and correlate for possible left proximal ureteral stone. No hydronephrosis or hydroureter is evident. Patient denies any fever, chills or sweats. She denies any nausea or vomiting. She denies any burning with urination. She denies any hematuria. PAST MEDICAL HISTORY: See list. PAST SURGICAL HISTORY: See list. MEDICATIONS: See list. ALLERGIES: See list. SOCIAL HISTORY: No illicit drug use. REVIEW OF SYSTEMS: CONSTITUTIONAL: Denies fever or chills. HEENT: Denies blurred vision, vision changes, or eye pain. Denies hemoptysis CARDIOVASCULAR: Denies chest pain or pressure. RESPIRATORY: No shortness of breath. GASTROINTESTINAL: See HPI for pertinent findings HEMATOLOGIC: Denies bleeding disorders. GENITOURINARY: Denies any blood in urine or increased urinary frequency. SKIN: Denies pruitis. Denies rash. PHYSICAL EXAM: VITAL SIGNS: Reviewed GENERAL: Well-developed in no acute distress. HEENT: No sclera icterus. Extraocular movements grossly intact. Moist buccal mucosa. Head is atraumatic, normocephalic. No nasal drainage. ABDOMEN: Soft. Obese. Erythema of the lower abdominal wall NEUROLOGIC: Alert and oriented. Cranial nerves II through XII grossly intact. LABORATORY DATA: WBC 4.6 hemoglobin 10.9 and platelets 1:30 glucose 114 A1c 6.7 AST 41 ALT 15 lipase 31 Urinalysis trace blood IMAGING: computed tomography scan of the abdomen and pelvis shows ascites and correlate for possible left proximal ureteral stone. No hydronephrosis or hydroureter is evident. ASSESSMENT: 1. Constipation now resolved 2. Abdominal pain possibly multifactorial due to constipation and panniculitis 3. Panniculitis 4. Mildly elevated LFTs and ascites noted on CAT scan. Being followed by GI service 5. Possible left ureteral stone noted on computed tomography scan 6. Morbid obesity PLAN: -No surgical intervention planned -Continue supportive care -Continue antibiotics per ID for the panniculitis -Patient scheduled for paracentesis by GI service Thank you for this consultation Physician Land Planner note has been reviewed by physician. Signing provider agrees with the documented findings, assessment, and plan of care. Past Medical History Past Medical History: COPD, Diabetes Mellitus, Hypertension, Renal Disease Additional Past Medical History / Comment(s): STAGE 2 KIDNEY DISEASE, HX OF H- PYLORI, HX OF PUNCTURED BOWEL DURING COLONOSCOPY IN 2006 History of Any Multi-Drug Resistant Organisms: None Reported Past Surgical History: Section, Cholecystectomy, Hysterectomy, Orthopedic Surgery Additional Past Surgical History / Comment(s): BROKEN PATELLA WITH REPAIR Past Anesthesia/Blood Transfusion Reactions: No Reported Reaction Past Psychological History: No Psychological Hx Reported Smoking Status: Never smoker Past Alcohol Use History: None Reported Past Drug Use History: None Reported - Past Family History Father Family Medical History: No Reported History Mother Family Medical History: COPD, Renal Disease Additional Family Medical History / Comment(s): MITRAL STENOSIS Medications and Allergies Home Medications Medication Instructions Recorded Confirmed Type Aspirin [Adult Low Dose Aspirin EC] 81 mg PO BID 10/04/19 10/03/20 History lisinopriL [Zestril] 10 mg PO DAILY 10/04/19 10/03/20 History Ascorbic Acid [Vitamin C] 500 mg PO DAILY 04/25/20 10/03/20 History Insulin Regular, Human [NovoLIN R] 12 unit SQ TID-W/MEALS 04/25/20 10/03/20 History Melatonin 2mg 2 mg PO HS PRN 04/25/20 10/03/20 History Silver Sulfadiazine [SSD 1% Cream] 1 applic TOPICAL BID 04/25/20 10/03/20 History Vitamin B Complex 1 tab PO DAILY 04/25/20 10/03/20 History Insulin NPH Hum/Reg Insulin Hm 60 unit SQ BID 04/26/20 10/03/20 History [NovoLIN 70-30 100 UNIT/ML VIAL] Furosemide [Lasix] 20 mg PO DAILY 90 Days #90 tab 04/27/20 10/03/20 Rx Cholecalciferol [Vitamin D3] 400 units PO DAILY 10/03/20 10/03/20 History Metoprolol Tartrate [Lopressor] 25 mg PO BID 10/03/20 10/03/20 History Pravastatin Sodium [Pravachol] 10 mg PO HS 10/03/20 10/03/20 History Allergies Allergy/AdvReac Type Severity Reaction Status Date / Time erythromycin base AdvReac Unknown rash,States Verified 10/03/20 12:35 "it does not work on me" hydrocodone [From [place]] AdvReac N/V, Verified 10/03/20 12:35 ITCHING, "TONGUE FEELS THICK" demerol Allergy Severe Anaphylaxis Uncoded 10/03/20 12:35 darvocet Allergy Confusion Uncoded 10/03/20 12:35 Surgical - Exam Vital Signs Temp Pulse Resp BP Pulse Ox 98.5 F 84 16 142/86 97 10/03/20 12:50 10/03/20 12:50 10/03/20 12:50 10/03/20 12:50 10/03/20 12:50 Results - Labs 10/04/20 06:03 10/04/20 06:03 Abnormal Lab Results - Last 24 Hours (Table) 10/03/20 10/03/20 10/03/20 Range/Units 15:58 15:58 15:58 RBC 3.54 L (3.80-5.40) m/uL Hgb (11.4-16.0) gm/dL Hct 33.8 L (34.0-46.0) % Plt Count 134 L (150-450) k/uL INR (<1.2) Sodium 136 L (137-145) mmol/L Chloride 108 H (98-107) mmol/L Glucose 55 L (74-99) mg/dL POC Glucose (mg/dL) (75-99) mg/dL Hemoglobin A1c 6.7 H (4.0-6.0) % Calcium (8.4-10.2) mg/dL AST 41 H (14-36) U/L Alkaline Phosphatase 134 H (38-126) U/L Total Protein 5.6 L (6.3-8.2) g/dL Albumin 2.5 L (3.5-5.0) g/dL Urine Protein (Negative) Urine Blood (Negative) Urine Mucus (None) /hpf 10/03/20 10/03/20 10/03/20 Range/Units 17:30 18:16 21:12 RBC (3.80-5.40) m/uL Hgb (11.4-16.0) gm/dL Hct (34.0-46.0) % Plt Count (150-450) k/uL INR (<1.2) Sodium (137-145) mmol/L Chloride (98-107) mmol/L Glucose (74-99) mg/dL POC Glucose (mg/dL) 71 L 143 H (75-99) mg/dL Hemoglobin A1c (4.0-6.0) % Calcium (8.4-10.2) mg/dL AST (14-36) U/L Alkaline Phosphatase (38-126) U/L Total Protein (6.3-8.2) g/dL Albumin (3.5-5.0) g/dL Urine Protein 2+ H (Negative) Urine Blood Trace H (Negative) Urine Mucus Rare H (None) /hpf 10/03/20 10/04/20 10/04/20 Range/Units 23:03 06:03 06:03 RBC 3.39 L (3.80-5.40) m/uL Hgb 10.9 L (11.4-16.0) gm/dL Hct 32.6 L (34.0-46.0) % Plt Count 130 L (150-450) k/uL INR (<1.2) Sodium 134 L (137-145) mmol/L Chloride (98-107) mmol/L Glucose 114 H (74-99) mg/dL POC Glucose (mg/dL) 158 H (75-99) mg/dL Hemoglobin A1c (4.0-6.0) % Calcium 8.0 L (8.4-10.2) mg/dL AST 41 H (14-36) U/L Alkaline Phosphatase (38-126) U/L Total Protein 5.0 L (6.3-8.2) g/dL Albumin 2.2 L (3.5-5.0) g/dL Urine Protein (Negative) Urine Blood (Negative) Urine Mucus (None) /hpf 10/04/20 10/04/20 10/04/20 Range/Units 07:29 12:05 13:26 RBC (3.80-5.40) m/uL Hgb (11.4-16.0) gm/dL Hct (34.0-46.0) % Plt Count (150-450) k/uL INR 1.2 H (<1.2) Sodium (137-145) mmol/L Chloride (98-107) mmol/L Glucose (74-99) mg/dL POC Glucose (mg/dL) 122 H 200 H (75-99) mg/dL Hemoglobin A1c (4.0-6.0) % Calcium (8.4-10.2) mg/dL AST (14-36) U/L Alkaline Phosphatase (38-126) U/L Total Protein (6.3-8.2) g/dL Albumin (3.5-5.0) g/dL Urine Protein (Negative) Urine Blood (Negative) Urine Mucus (None) /hpf Diabetes panel 10/03/20 10/03/20 10/04/20 Range/Units 15:58 15:58 06:03 Sodium 136 L 134 L (137-145) mmol/L Potassium 3.8 3.9 (3.5-5.1) mmol/L Chloride 108 H 107 (98-107) mmol/L Carbon Dioxide 28 28 (22-30) mmol/L BUN 16 14 (7-17) mg/dL Creatinine 0.76 0.75 (0.52-1.04) mg/dL Glucose 55 L 114 H (74-99) mg/dL Hemoglobin A1c 6.7 H (4.0-6.0) % Calcium 8.4 8.0 L (8.4-10.2) mg/dL AST 41 H 41 H (14-36) U/L ALT 16 15 (4-34) U/L Alkaline Phosphatase 134 H 120 (38-126) U/L Total Protein 5.6 L 5.0 L (6.3-8.2) g/dL Albumin 2.5 L 2.2 L (3.5-5.0) g/dL Calcium panel 10/03/20 10/04/20 Range/Units 15:58 06:03 Calcium 8.4 8.0 L (8.4-10.2) mg/dL Albumin 2.5 L 2.2 L (3.5-5.0) g/dL Pituitary panel 10/03/20 10/04/20 Range/Units 15:58 06:03 Sodium 136 L 134 L (137-145) mmol/L Potassium 3.8 3.9 (3.5-5.1) mmol/L Chloride 108 H 107 (98-107) mmol/L Carbon Dioxide 28 28 (22-30) mmol/L BUN 16 14 (7-17) mg/dL Creatinine 0.76 0.75 (0.52-1.04) mg/dL Glucose 55 L 114 H (74-99) mg/dL Calcium 8.4 8.0 L (8.4-10.2) mg/dL Adrenal panel 10/03/20 10/04/20 Range/Units 15:58 06:03 Sodium 136 L 134 L (137-145) mmol/L Potassium 3.8 3.9 (3.5-5.1) mmol/L Chloride 108 H 107 (98-107) mmol/L Carbon Dioxide 28 28 (22-30) mmol/L BUN 16 14 (7-17) mg/dL Creatinine 0.76 0.75 (0.52-1.04) mg/dL Glucose 55 L 114 H (74-99) mg/dL Calcium 8.4 8.0 L (8.4-10.2) mg/dL Total Bilirubin 1.1 1.2 (0.2-1.3) mg/dL AST 41 H 41 H (14-36) U/L ALT 16 15 (4-34) U/L Alkaline Phosphatase 134 H 120 (38-126) U/L Total Protein 5.6 L 5.0 L (6.3-8.2) g/dL Albumin 2.5 L 2.2 L (3.5-5.0) g/dL
--- NOTE | 2020-10-04 16:32 | CONS ---
CONSULTATION DATE OF DICTATION: 10/04/2020. REASON FOR CONSULTATION: New onset ascites and abdominal discomfort. HISTORY OF PRESENT ILLNESS: The patient is a 65-year-old pleasant white female with history of diabetes mellitus, hypertension, chronic kidney disease, COPD who was admitted to the hospital with abdominal discomfort, abdominal distention and progressive weight gain of almost 40 pounds in the last 3-4 weeks duration. She came to the emergency room. She had a CT of the abdomen and pelvis done that revealed some ascites and hence we are consulted in regards to this issue. The patient denies any history of chronic liver disease. No history of alcohol use. She has been diabetic for almost 40 years. At the time of admission hospital, bilirubin was 1.1, AST and ALT are 41 and 16 respectively, and alkaline phosphatase was 134. She denies any history of jaundice or hepatitis in the past. No history of alcohol use. PAST MEDICAL HISTORY: Significant for diabetes mellitus, hypertension, hyperlipidemia, chronic kidney disease and COPD. PAST SURGICAL HISTORY: Cholecystectomy hysterectomy, , broken patella with repair. MEDICATIONS: Medications at home include aspirin, Zestril, vitamin C, Novolin, Lasix, Pravachol, Lopressor, Lasix, vitamin D3. ALLERGIES: Allergies to ERYTHROMYCIN, HYDROCODONE, DEMEROL, DARVOCET. SOCIAL HISTORY: No smoking. No alcohol use. FAMILY HISTORY: Mother had COPD and chronic kidney disease and mitral stenosis. REVIEW OF SYSTEMS: CARDIOPULMONARY: No chest pain. No shortness of breath. GENITOURINARY: No dysuria or hematuria. MUSCULOSKELETAL: Unremarkable. SKIN: Unremarkable except for cellulitis in February of this year at which time she was treated with antibiotics. NEUROLOGY: Unremarkable. PSYCHIATRIC: Unremarkable. CONSTITUTIONAL: Progressive weight gain with lower extremity swelling for the last 3 to 4 weeks duration. PHYSICAL EXAMINATION: She appears comfortable. No apparent distress. Vital signs are stable. Blood pressure is 145/86, pulse rate 82 and afebrile HEENT EXAMINATION: Unremarkable. Conjunctivae pink. Sclerae anicteric. Oral cavity, no lesions. NECK: No JVD or lymph node enlargement. CHEST: Was clear to auscultation. HEART: Regular rate and rhythm. ABDOMEN: Obese. There was significant amount of anterior abdominal wall edema noted. No organomegaly. EXTREMITIES: 2+ Pedal edema. SKIN: No rashes. NEURO: She is alert and oriented x3. No focal deficits. LABS: WBC 4.6, hemoglobin 10.9, platelets 130. AST 41, ALT 15. T-bilirubin and alkaline phosphatase are within normal limits. Blood sugar 114. Albumin is 2.2. CAT scan of the abdomen and pelvis showed evidence of some ascites and possible proximal ureteral stone, normal-appearing liver. IMPRESSION: 1. This is a lady who presents to the hospital with progressive weight gain of almost 40 to 50 pounds in the last 3-4 weeks duration with abdominal distention and abdominal wall edema and recent CAT scan showed evidence of ascites. No history of underlying liver disease. The patient does have a longstanding history of diabetes mellitus, hypertension, morbid obesity. CT of the abdomen showed some ascites, but normal appearing liver. Labs revealed low platelets and also low albumin. All this is very concerning for underlying chronic liver disease and possibility of cirrhosis of the liver cannot be excluded. 2. Longstanding history of diabetes mellitus. 3. Hypertension and hyperlipidemia. 4. Lower extremity swelling. RECOMMENDATIONS: 1. Schedule her for large-volume paracentesis for diagnostic and therapeutic purposes. 2. Obtain hepatitis serologies for A, B and C and we will initiate workup for chronic liver disease. 3. Obtain CA-125. 4. We will follow with you closely. Thank you for this consultation. MMODL / IJN: [id number] /
[2020-10-04 17:24] LABS: Glucose,Whole Blood 158 mg/dL (75-99)
--- NOTE | 2020-10-04 17:32 | HP ---
HISTORY AND PHYSICAL She has had severe 30 pounds weight gain and new onset ascites and abdominal discomfort, unable to have any bowel movement. Gained 30 pounds. Admitted for possible bowel obstruction and severe abdominal distention and pain, which she cannot tolerate at home. CT scan shows ascites and possibly infected lower abdomen. Started on IV antibiotics. Await for Infectious Disease and GI and surgery due to elevated liver enzymes. She is diabetic for 40 years. Medications were adjusted. CT scan shows ascites in the lower abdomen. PAST MEDICAL HISTORY: Diabetes mellitus, hypertension, dyslipidemia, chronic kidney disease, COPD, chronic weight gain. PAST SURGICAL HISTORY: Cholecystectomy, hysterectomy, , broken patella repair. MEDICATIONS: Zestril, vitamin C, Novolin, Lasix, Pravachol, Lopressor, Lasix, vitamin D3. ALLERGIES: ERYTHROMYCIN, HYDROCODONE, DEMEROL, DARVOCET. SOCIAL HISTORY: No smoking or alcohol. FAMILY HISTORY: Mother with COPD, chronic kidney disease, mitral stenosis. REVIEW OF SYSTEMS: 14-point review of system is positive for weight gain, lower extremity swelling over the past 3-4 weeks duration as mentioned above, cellulitis of the lower legs, treated with antibiotics, but otherwise negative except for severe constipation, difficulty with having bowel movements. PHYSICAL EXAMINATION: She is comfortable in no acute distress. Vital signs are reviewed. Abdomen is distended largely and severe amounts with pitting edema in the lower abdomen. Cannot tell if she has organomegaly. Heart regular rate and rhythm. Lungs are clear. Neck is supple. Pupils equal, round, reactive. She wears glasses. NEUROLOGIC: Cranial nerves intact. Psych: Fair mood and affect. Labs reviewed. CT scan reviewed. ASSESSMENT: 1. Progressive weight gain 40 to 50 pounds in the last 3-4 weeks with acute abdominal pain and distention and ascites of the abdomen. 2. Diabetes mellitus. 3. Hypertension. 4. Morbid obesity. 5. She possibly has underlying chronic liver disease, possibly cirrhosis of the liver. 6. Leg swelling. She is going to get a large volume paracentesis for diagnostic therapeutic purposes. Please see further orders. Await for surgical and GI consultation. MMODL / IJN: [id number] /
[2020-10-04 19:37] LABS: Hepatitis B Surface AB- Quant 3.5 mIU/mL; Hepatitis B Surface Antibody Non-Reactive (Non-Reactive); Hepatitis B Surface Antigen Non-Reactive (Non-Reactive); Hepatitis C IgG Antibody Non-Reactive (Non-Reactive)
[2020-10-04 20:17] LABS: Glucose,Whole Blood 164 mg/dL (75-99)
[2020-10-04] MEDS: PRAVASTATIN SODIUM 20 MG TAB PO SCH (20:48)
[2020-10-05 07:55] LABS: Glucose,Whole Blood 80 mg/dL (75-99)
[2020-10-05] MEDS: METOPROLOL TARTRATE 25 MG TAB PO SCH ×2 (08:18→21:21)
[2020-10-05] MEDS: FUROSEMIDE 20 MG TAB PO SCH (08:18)
[2020-10-05] MEDS: SODIUM CHLORIDE 0.9% 1,000 ML IV SCH ×2 (08:19→21:22)
[2020-10-05] MEDS: lisinopriL 10 MG TAB PO SCH (08:19)
[2020-10-05] MEDS: INSULN ASP PRT/INSULIN ASPART 100 UNIT/ML 10 ML VIAL SQ SCH ×2 (08:22→21:22)
[2020-10-05] MEDS: INSULIN REGULAR 100 UNIT/ML VIAL SQ SCH ×3 (08:22→17:46)
[2020-10-05 09:02] LABS: HCT 34.1 % (34.0-46.0); HGB 11.4 gm/dL (11.4-16.0); MCH 32.4 pg (25.0-35.0); MCHC 33.6 g/dL (31.0-37.0); MCV 96.3 fL (80.0-100.0); Mean Platelet Volume 8.4; Platelet Count 133 k/uL (150-450); RBC 3.54 m/uL (3.80-5.40); RDW 13.7 % (11.5-15.5); WBC 5.3 k/uL (3.8-10.6)
[2020-10-05 09:15] LABS: ALT 16 U/L (4-34); AST 45 U/L (14-36); African American GFR (CKD) >90 (>60 ml/min/1.73 sqM); Albumin 2.4 g/dL (3.5-5.0); Alkaline Phosphatase 130 U/L (38-126); Anion Gap 1 mmol/L; Blood Urea Nitrogen 12 mg/dL (7-17); Calcium 8.3 mg/dL (8.4-10.2); Carbon Dioxide 27 mmol/L (22-30); Chloride 106 mmol/L (98-107); Glucose 107 mg/dL (74-99); Non-African American GFR(CKD) 83 (>60 ml/min/1.73 sqM); Sodium 134 mmol/L (137-145); Total Bilirubin 1.3 mg/dL (0.2-1.3); Total Protein 5.4 g/dL (6.3-8.2)
[2020-10-05] MEDS: ASPIRIN 81 MG PO SCH ×2 (10:52→21:22)
--- NOTE | 2020-10-05 11:23 | US ---
Ultrasound-guided paracentesis. DATE OF EXAM: 10/05/2020 CLINICAL HISTORY: Ascites Preliminary imaging demonstrated no sizable fluid collection on today's exam. Procedure discontinued. IMPRESSION: No sizable amount of ascites.
[2020-10-05 11:55] LABS: Glucose,Whole Blood 145 mg/dL (75-99)
--- NOTE | 2020-10-05 12:45 | P.PN ---
Subjective Progress Note Date: 10/05/20 CHIEF COMPLAINT: Abdominal pain HISTORY OF PRESENT ILLNESS: Patient is being folded in regards to her abdominal pain. She did present with constipation this has now resolved. She is having loose bowel movements. She's currently on a clear liquid diet. She is scheduled for diagnostic paracentesis regarding her ascites. Her CA-125 is elevated. Hepatitis panel is negative. Afebrile. WBC 5.3 hemoglobin 11.4 creatinine 0.75 A1c 6.7 AST 45 ALT 16 alk phos 130 albumin 2.4 PHYSICAL EXAM: VITAL SIGNS: Reviewed. GENERAL: Well-developed in no acute distress. HEENT: No sclera icterus. Extraocular movements grossly intact. Moist buccal mucosa. Head is atraumatic, normocephalic. ABDOMEN: Soft. NEUROLOGIC: Alert and oriented. Cranial nerves II through XII grossly intact. Extremities: Edema ASSESSMENT: 1. Constipation now resolved 2. Abdominal pain possibly multifactorial due to constipation and panniculitis 3. Panniculitis 4. Mildly elevated LFTs and ascites noted on CAT scan. Being followed by GI service 5. Possible left ureteral stone noted on computed tomography scan 6. Morbid obesity PLAN: -No surgical intervention planned -Continue supportive care -Continue antibiotics per ID for the panniculitis -Okay to advance diet to carb consistent low sodium -Added Glucerna shakes for hypoalbuminemia and significant edema Physician Front Desk Agent note has been reviewed by physician. Signing provider agrees with the documented findings, assessment, and plan of care. Objective - Vital Signs Vital signs: Vital Signs Temp 98.5 F 10/05/20 08:15 Pulse 69 10/05/20 08:15 Resp 20 10/05/20 08:15 BP 121/54 10/05/20 08:15 Pulse Ox 97 10/05/20 08:15 Intake & Output 10/04/20 10/05/20 10/05/20 18:59 06:59 18:59 Other: # Voids 1 1 1 - Labs CBC & Chem 7: 10/05/20 08:41 10/05/20 08:41 Labs: Abnormal Lab Results - Last 24 Hours (Table) 10/04/20 10/04/20 10/04/20 Range/Units 06:03 13:26 17:22 RBC (3.80-5.40) m/uL Plt Count (150-450) k/uL INR 1.2 H (<1.2) Sodium (137-145) mmol/L Glucose (74-99) mg/dL POC Glucose (mg/dL) 158 H (75-99) mg/dL Calcium (8.4-10.2) mg/dL AST (14-36) U/L Alkaline Phosphatase (38-126) U/L Total Protein (6.3-8.2) g/dL Albumin (3.5-5.0) g/dL CA 125 Antigen 311.5 H (0.0-30.1) U/mL 10/04/20 10/05/20 10/05/20 Range/Units 20:15 08:41 08:41 RBC 3.54 L (3.80-5.40) m/uL Plt Count 133 L (150-450) k/uL INR (<1.2) Sodium 134 L (137-145) mmol/L Glucose 107 H (74-99) mg/dL POC Glucose (mg/dL) 164 H (75-99) mg/dL Calcium 8.3 L (8.4-10.2) mg/dL AST 45 H (14-36) U/L Alkaline Phosphatase 130 H (38-126) U/L Total Protein 5.4 L (6.3-8.2) g/dL Albumin 2.4 L (3.5-5.0) g/dL CA 125 Antigen (0.0-30.1) U/mL 10/05/20 Range/Units 11:53 RBC (3.80-5.40) m/uL Plt Count (150-450) k/uL INR (<1.2) Sodium (137-145) mmol/L Glucose (74-99) mg/dL POC Glucose (mg/dL) 145 H (75-99) mg/dL Calcium (8.4-10.2) mg/dL AST (14-36) U/L Alkaline Phosphatase (38-126) U/L Total Protein (6.3-8.2) g/dL Albumin (3.5-5.0) g/dL CA 125 Antigen (0.0-30.1) U/mL
--- NOTE | 2020-10-05 14:44 | P.PN ---
Subjective Progress Note Date: 10/05/20 Principal diagnosis: Ascites A pleasant 65-year-old female who was sent in from Dr. Marsh with complaints of increased weight gain, abdominal distention, and cellulitis of the abdomen. She stated she had no known prior history of any liver disease and denies any history of alcohol abuse. She was scheduled yesterday for an ultrasound with paracentesis. Radiology called and said that there was only a very small scant pocket of fluid. Patient went today for paracentesis for fluid studies however was noted by radiology that there was only scant pocket of fluid and they were unable to obtain any fluid for studies. She is seen and examined sitting up, she appears in no acute distress. She had no acute changes through the night. She's been afebrile. She denies any abdominal pain, nausea or vomiting. Hepatitis B and C ordered, results negative. Objective - Vital Signs Vital signs: Vital Signs Temp 98.5 F 10/05/20 08:15 Pulse 69 10/05/20 08:15 Resp 20 10/05/20 08:15 BP 121/54 10/05/20 08:15 Pulse Ox 97 10/05/20 08:15 Intake & Output 10/04/20 10/05/20 10/05/20 18:59 06:59 18:59 Other: # Voids 1 1 1 - Exam General appearance: The patient is alert, oriented, in no acute distress. Morbidly obese. HET: Head is normocephalic and atraumatic. Conjunctiva pink. Sclera anicteric. Neck: Supple without lymphadenopathy. Abdomen: Morbidly obese, Firm, with significant amount of anterior wall edema, nondistended. No guarding or rigidity. Extremities: Normal skin color and turgor. Bilateral +2 pitting edema. Neurological: No focal deficits. Alert and oriented 3. - Labs CBC & Chem 7: 10/05/20 08:41 10/05/20 08:41 Labs: Abnormal Lab Results - Last 24 Hours (Table) 10/04/20 10/04/20 10/04/20 Range/Units 06:03 17:22 20:15 RBC (3.80-5.40) m/uL Plt Count (150-450) k/uL Sodium (137-145) mmol/L Glucose (74-99) mg/dL POC Glucose (mg/dL) 158 H 164 H (75-99) mg/dL Calcium (8.4-10.2) mg/dL AST (14-36) U/L Alkaline Phosphatase (38-126) U/L Total Protein (6.3-8.2) g/dL Albumin (3.5-5.0) g/dL CA 125 Antigen 311.5 H (0.0-30.1) U/mL 10/05/20 10/05/20 10/05/20 Range/Units 08:41 08:41 11:53 RBC 3.54 L (3.80-5.40) m/uL Plt Count 133 L (150-450) k/uL Sodium 134 L (137-145) mmol/L Glucose 107 H (74-99) mg/dL POC Glucose (mg/dL) 145 H (75-99) mg/dL Calcium 8.3 L (8.4-10.2) mg/dL AST 45 H (14-36) U/L Alkaline Phosphatase 130 H (38-126) U/L Total Protein 5.4 L (6.3-8.2) g/dL Albumin 2.4 L (3.5-5.0) g/dL CA 125 Antigen (0.0-30.1) U/mL Assessment and Plan (1) Ascites Narrative/Plan: The lady who presented to the hospital with progressive weight gain of almost 40-50 pounds last 3-4 weeks duration with abdominal distention and abdominal wall edema. Recent CAT scan showed evidence of ascites. There is no history of underlying liver disease. The patient does have a long-standing history of diabetes mellitus, hypertension, and morbid obesity. CT of the abdomen showed some ascites, but normal-appearing liver. Labs revealed low platelets and also low albumin. All this is very concerning for underlying chronic liver disease and possibility of cirrhosis of the liver cannot be excluded. Current Visit: Yes Status: Acute Code(s): R18.8 - OTHER ASCITES SNOMED Code(s): 487095846 (2) Elevated cancer antigen 125 (CA-125) Narrative/Plan: We'll consult gynecology Current Visit: Yes Status: Acute Code(s): R97.1 - ELEVATED CANCER ANTIGEN 125 [CA 125] SNOMED Code(s): 993240764 (3) Diabetes mellitus Current Visit: Yes Status: Acute Code(s): E11.9 - TYPE 2 DIABETES MELLITUS WITHOUT COMPLICATIONS SNOMED Code(s): 32581931 (4) Swelling of both lower extremities Narrative/Plan: Lasix increased to 40 mg twice daily Current Visit: Yes Status: Acute Code(s): M79.89 - OTHER SPECIFIED SOFT TISSUE DISORDERS SNOMED Code(s): 435452272 (5) Hypertension Current Visit: Yes Status: Acute Code(s): I10 - ESSENTIAL (PRIMARY) HYPERTENSION SNOMED Code(s): 61761160 Plan: 1. Low-sodium, consistent carbohydrate diet 2. Patient is status post ultrasound for paracentesis, study showing scant amount of fluid unable to do fluid studies 3. Liver serology studies ordered and reviewed 4. CA 125 ordered and reviewed, consult gynecology 5. Increase Lasix to 40 mg twice daily We will continue to follow closely Dr. Lidia Dawkisn I agree with the dictator's note, documented as a scribe by Margarita Vasquez.
--- NOTE | 2020-10-05 15:13 | P.PN ---
Subjective Progress Note Date: 10/05/20 HISTORY OF PRESENT ILLNESS This is a 65-year-old female known to ID service as she was previously treated for left lower extremity cellulitis, March 2020. She also has history of diabetes mellitus, hypertension, chronic kidney disease stage II, COPD. patient treated for abdominal wall soft tissue cellulitis on Kefzol. The patient has some mild improvement of erythema. She has been afebrile, heart rate 69, blood pressure 121/54, pulse ox 97% on room air. WBC 5.3. Platelet count 133. Cre atinine 0.75. AST 45, 0.5 130. Patient underwent ultrasound that did not show any sizable ascites. PHYSICAL EXAMINATION Gen: This is a morbidly obese female. She is resting in chair and appears to be comfortable. No respiratory distress is noted. HEENT: Head is atraumatic, normocephalic. Pupils equal, round. Sclerae is anicteric. NECK: Supple. No JVD. No lymphadenopathy. No thyromegaly. LUNGS: Clear to auscultation. No wheezes or rhonchi. No intercostal retractions. No accessory muscle usage. HEART: Regular rate and rhythm. No murmur. ABDOMEN: Morbidly obese Soft. Bowel sounds are present. No masses. Mild tenderness to the lower quadrant/abdominal apron area with mild erythema. Anasarca abdominal apron. EXTREMITIES: Bilateral 2+ pedal edema slightly worse on the right and left. No calf tenderness. No significant erythema. NEUROLOGICAL: Patient is awake, alert and oriented x3. Cranial nerves 2 through 12 are grossly intact. ASSESSMENT Abdominal wall cellulitis Ascites PLAN Continue Kefzol increased to 2 g IV piggyback every 8 hours Plan for Keflex at the time of discharge Continue supportive care Further recommendations based on patient's clinical course The above dictated assessment and findings were discussed with Dr. Yeung. The impression and plan of care have been directed as dictated. Gilda Zhao nurse practitioner acting as scribe for Dr. Yeung. Objective - Vital Signs Vital signs: Vital Signs Temp 98.5 F 10/05/20 08:15 Pulse 69 10/05/20 08:15 Resp 20 10/05/20 08:15 BP 121/54 10/05/20 08:15 Pulse Ox 97 10/05/20 08:15 Intake & Output 10/04/20 10/05/20 10/05/20 18:59 06:59 18:59 Other: # Voids 1 1 1 - Labs CBC & Chem 7: 10/05/20 08:41 10/05/20 08:41 Labs: Abnormal Lab Results - Last 24 Hours (Table) 10/04/20 10/04/20 10/04/20 Range/Units 06:03 13:26 17:22 RBC (3.80-5.40) m/uL Plt Count (150-450) k/uL INR 1.2 H (<1.2) Sodium (137-145) mmol/L Glucose (74-99) mg/dL POC Glucose (mg/dL) 158 H (75-99) mg/dL Calcium (8.4-10.2) mg/dL AST (14-36) U/L Alkaline Phosphatase (38-126) U/L Total Protein (6.3-8.2) g/dL Albumin (3.5-5.0) g/dL CA 125 Antigen 311.5 H (0.0-30.1) U/mL 10/04/20 10/05/20 10/05/20 Range/Units 20:15 08:41 08:41 RBC 3.54 L (3.80-5.40) m/uL Plt Count 133 L (150-450) k/uL INR (<1.2) Sodium 134 L (137-145) mmol/L Glucose 107 H (74-99) mg/dL POC Glucose (mg/dL) 164 H (75-99) mg/dL Calcium 8.3 L (8.4-10.2) mg/dL AST 45 H (14-36) U/L Alkaline Phosphatase 130 H (38-126) U/L Total Protein 5.4 L (6.3-8.2) g/dL Albumin 2.4 L (3.5-5.0) g/dL CA 125 Antigen (0.0-30.1) U/mL 10/05/20 Range/Units 11:53 RBC (3.80-5.40) m/uL Plt Count (150-450) k/uL INR (<1.2) Sodium (137-145) mmol/L Glucose (74-99) mg/dL POC Glucose (mg/dL) 145 H (75-99) mg/dL Calcium (8.4-10.2) mg/dL AST (14-36) U/L Alkaline Phosphatase (38-126) U/L Total Protein (6.3-8.2) g/dL Albumin (3.5-5.0) g/dL CA 125 Antigen (0.0-30.1) U/mL
[2020-10-05] MEDS: FUROSEMIDE 40 MG TAB PO SCH (16:38)
--- NOTE | 2020-10-05 17:23 | P.OBCN ---
History of Present Illness Consult date: 10/05/20 Requesting physician: Sujatha Dawkins Reason for consult: other (Elevated CA-125) Chief complaint: Weight gain, constipation History of present illness: This is a pleasant 65-year-old female 4 para 3012 who presented with complaints of 30-40 pound weight gain, increasing abdominal distention and some constipation. She denies any nausea or vomiting diarrhea or decreased appetite. She does have a history of a total supracervical hysterectomy with bilateral salpingo-oophorectomy in November 1993 this was done for uterine fibroids when she was 48 years old. Apparently at the same time she had some sort of bladder suspension and a hernia repair. She states she went to see a doctor a few years after her hysterectomy for a Pap smear and was told she didn't need one even though she told them that she still had a cervix. She has not had any Pap smear since her hysterectomy. She does have a history of chlamydia treated several times when she is to her first . She does get chronic yeast infections most likely due to her diabetes. 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 I am consulted due to her elevated CA-125 at 311. Computed tomography scan shows ascites and radiologist does make a notation of a normal uterus even though she has had a previous hysterectomy. Review of Systems Constitutional: Denies chills, Denies fever Cardiovascular: Reports dyspnea on exertion Gastrointestinal: Reports abdominal pain (Tenderness on left lower abdomen), Reports constipation, Denies diarrhea, Denies nausea, Denies vomiting Genitourinary: Denies abnormal vaginal bleeding Menstruation: Reports post hysterectomy Past Medical History Past Medical History: COPD, Diabetes Mellitus, Hypertension, Renal Disease Additional Past Medical History / Comment(s): STAGE 2 KIDNEY DISEASE, HX OF H- PYLORI, HX OF PUNCTURED BOWEL DURING COLONOSCOPY IN 2006 History of Any Multi-Drug Resistant Organisms: None Reported Past Surgical History: Section, Cholecystectomy, Hysterectomy (Total metcalf pracervical hysterectomy with bilateral salpingo-oophorectomy with bladder suspension and some sort of hernia repair at age 48 for fibroids), Orthopedic Surgery Additional Past Surgical History / Comment(s): BROKEN PATELLA WITH REPAIR Past Anesthesia/Blood Transfusion Reactions: No Reported Reaction Past Psychological History: No Psychological Hx Reported Smoking Status: Never smoker Past Alcohol Use History: None Reported Past Drug Use History: None Reported - Past Family History Father Family Medical History: No Reported History Mother Family Medical History: COPD, Renal Disease Additional Family Medical History / Comment(s): MITRAL STENOSIS Medications and Allergies Home Medications Medication Instructions Recorded Confirmed Type Aspirin [Adult Low Dose Aspirin EC] 81 mg PO BID 10/04/19 10/03/20 History lisinopriL [Zestril] 10 mg PO DAILY 10/04/19 10/03/20 History Ascorbic Acid [Vitamin C] 500 mg PO DAILY 04/25/20 10/03/20 History Insulin Regular, Human [NovoLIN R] 12 unit SQ TID-W/MEALS 04/25/20 10/03/20 History Melatonin 2mg 2 mg PO HS PRN 04/25/20 10/03/20 History Silver Sulfadiazine [SSD 1% Cream] 1 applic TOPICAL BID 04/25/20 10/03/20 History Vitamin B Complex 1 tab PO DAILY 04/25/20 10/03/20 History Insulin NPH Hum/Reg Insulin Hm 60 unit SQ BID 04/26/20 10/03/20 History [NovoLIN 70-30 100 UNIT/ML VIAL] Furosemide [Lasix] 20 mg PO DAILY 90 Days #90 tab 04/27/20 10/03/20 Rx Cholecalciferol [Vitamin D3] 400 units PO DAILY 10/03/20 10/03/20 History Metoprolol Tartrate [Lopressor] 25 mg PO BID 10/03/20 10/03/20 History Pravastatin Sodium [Pravachol] 10 mg PO HS 10/03/20 10/03/20 History Allergies Allergy/AdvReac Type Severity Reaction Status Date / Time erythromycin base AdvReac Unknown rash,States Verified 10/03/20 12:35 "it does not work on me" hydrocodone [From [place]] AdvReac N/V, Verified 10/03/20 12:35 ITCHING, "TONGUE FEELS THICK" demerol Allergy Severe Anaphylaxis Uncoded 10/03/20 12:35 darvocet Allergy Confusion Uncoded 10/03/20 12:35 Exam Osteopathic Statement: *. No significant issues noted on an osteopathic structural exam other than those noted in the History and Physical/Consult. Vital Signs Temp Pulse Resp BP Pulse Ox 10/05/20 15:05 98.5 F 68 16 106/69 95 10/05/20 08:15 98.5 F 69 20 121/54 97 10/05/20 01:16 98.4 F 78 18 122/68 95 10/04/20 20:00 98.3 F 83 18 117/66 94 L Intake and Output 10/05/20 10/05/20 10/05/20 06:59 14:59 22:59 Other: # Voids 1 1 - OBG Physical Exam Abdomen detail: left upper quadrant: tenderness (Mild tenderness on the left lower side of her abdomen) Vulva: both: normal Vagina: no discharge Cervix: Cervix is palpated on bimanual exam and feels smooth. Uterus: absent Adnexa: Adnexa is near impossible to evaluate due to patient's size and large panniculus however no tenderness is elicited and no masses are able to be palpated Adnexa: both: mass, tenderness Results Result Diagrams: 10/05/20 08:41 10/05/20 08:41 Abnormal Lab Results - Last 24 Hours (Table) 10/04/20 10/04/20 10/04/20 Range/Units 06:03 17:22 20:15 RBC (3.80-5.40) m/uL Plt Count (150-450) k/uL Sodium (137-145) mmol/L Glucose (74-99) mg/dL POC Glucose (mg/dL) 158 H 164 H (75-99) mg/dL Calcium (8.4-10.2) mg/dL AST (14-36) U/L Alkaline Phosphatase (38-126) U/L Total Protein (6.3-8.2) g/dL Albumin (3.5-5.0) g/dL CA 125 Antigen 311.5 H (0.0-30.1) U/mL 10/05/20 10/05/20 10/05/20 Range/Units 08:41 08:41 11:53 RBC 3.54 L (3.80-5.40) m/uL Plt Count 133 L (150-450) k/uL Sodium 134 L (137-145) mmol/L Glucose 107 H (74-99) mg/dL POC Glucose (mg/dL) 145 H (75-99) mg/dL Calcium 8.3 L (8.4-10.2) mg/dL AST 45 H (14-36) U/L Alkaline Phosphatase 130 H (38-126) U/L Total Protein 5.4 L (6.3-8.2) g/dL Albumin 2.4 L (3.5-5.0) g/dL CA 125 Antigen (0.0-30.1) U/mL Assessment and Plan (1) Elevated cancer antigen 125 (CA-125) Current Visit: Yes Status: Acute Code(s): R97.1 - ELEVATED CANCER ANTIGEN 125 [CA 125] SNOMED Code(s): 985456707 Plan: I have ordered a transvaginal pelvic ultrasound to better evaluate the cervix and anything above the cervix. I have explained to the patient that an elevated CA-125 can be indicative of ovarian cancer or peritoneal cancer however it can also be elevated in any other inflammatory condition of the abdomen. I have recommended that she be evaluated by DATABASE SOFTWARE TECHNICIAN oncology. If it is felt that she needs further workup during this admission, I would recommend trying to transfer to [facility] under the care of either Dr. Carl Roberson or Siva Viveros. If it is felt that this can be managed as an outpatient, I am happy to see her in [facility] and facilitate referral that way after discharge. I would recommend that she also have a Pap smear performed as an outpatient. Thank you for this consultation and I will follow.
[2020-10-05 17:42] LABS: Glucose,Whole Blood 223 mg/dL (75-99)
--- NOTE | 2020-10-05 18:38 | US ---
EXAMINATION TYPE: US pelvis complete transvag DATE OF EXAM: 10/05/2020 COMPARISON: NONE CLINICAL HISTORY: Elevated CA-125, hx of supracervical hysterectomy. elevated CA-125, complete hyster ectomy 1993 TECHNIQUE: Transvaginal (TV) and Transabdominal (TA) . Transabdominal sonographic images of the pel vis were acquired. Transvaginal sonographic images were medically necessary to better assess the fol lowing anatomy: unable to visualize transabdominally due to large, hardened panis Date of LMP: unknown EXAM MEASUREMENTS: Uterus: Surgically absent Endometrial Stripe: Surgically absent Right Ovary: Surgically absent Left Ovary: Surgically absent 1. Uterus: Surgically absent, cervix area appears prominent 2. Endometrium: Surgically absent 3. Right Ovary: Surgically absent 4. Left Ovary: Surgically absent 5. Bilateral Adnexa: appears wnl 6. Posterior cul-de-sac: free fluid noted midline IMPRESSION: No solid or cystic pelvic mass identified. No free fluid in the pelvis.
[2020-10-05 20:58] LABS: Glucose,Whole Blood 211 mg/dL (75-99)
[2020-10-05] MEDS: PRAVASTATIN SODIUM 20 MG TAB PO SCH (21:21)
[2020-10-06 07:48] LABS: Glucose,Whole Blood 124 mg/dL (75-99)
[2020-10-06 07:52] LABS: Albumin 2.3 g/dL (3.5-5.0); Calcium 8.2 mg/dL (8.4-10.2); Potassium 4.6 mmol/L (3.5-5.1); Total Protein 5.2 g/dL (6.3-8.2)
[2020-10-06] MEDS: INSULIN REGULAR 100 UNIT/ML VIAL SQ SCH ×3 (10:26→17:45)
[2020-10-06] MEDS: INSULN ASP PRT/INSULIN ASPART 100 UNIT/ML 10 ML VIAL SQ SCH ×2 (10:27→21:53)
[2020-10-06] MEDS: FUROSEMIDE 40 MG TAB PO SCH ×2 (10:33→17:10)
[2020-10-06] MEDS: lisinopriL 10 MG TAB PO SCH (10:34)
[2020-10-06] MEDS: ASPIRIN 81 MG PO SCH ×2 (10:41→21:53)
[2020-10-06] MEDS: METOPROLOL TARTRATE 25 MG TAB PO SCH ×2 (10:41→21:53)
--- NOTE | 2020-10-06 11:06 | P.GSCN ---
History of Present Illness Consult date: 10/06/20 History of present illness: This is a 65-year-old female who was admitted to the hospital for abdominal discomfort. She is 5 foot 4 at 162 kg a. She states she's had a 30-40 pound weight gain over the last several weeks it. She's had abdominal pain in her protuberant pannus bilaterally. CT scan was obtained identifying a possible 3 mm left midureteral stone. For this reason we are asked see the patient. The patient is interviewed at the bedside. She has no urologic history. She has not had blood in the urine kidney stones urinary tract procedures urinary tract infections. She is not having any flank pain nor did has she had flank pain. She has no voiding discomfort. She has no nausea or vomiting. The computed tomography scan is questionable whether the stone is in the ureter or whether it's a vascular calcification. There is no hydronephrosis. The urinalysis is clear. Review of Systems All systems: negative Past Medical History Past Medical History: COPD, Diabetes Mellitus, Hypertension, Renal Disease Additional Past Medical History / Comment(s): STAGE 2 KIDNEY DISEASE, HX OF H- PYLORI, HX OF PUNCTURED BOWEL DURING COLONOSCOPY IN 2006 History of Any Multi-Drug Resistant Organisms: None Reported Past Surgical History: Section, Cholecystectomy, Hysterectomy (Total supracervical hysterectomy with bilateral salpingo-oophorectomy with bladder suspension and some sort of hernia repair at age 48 for fibroids), Orthopedic Surgery Additional Past Surgical History / Comment(s): BROKEN PATELLA WITH REPAIR Past Anesthesia/Blood Transfusion Reactions: No Reported Reaction Past Psychological History: No Psychological Hx Reported Smoking Status: Never smoker Past Alcohol Use History: None Reported Past Drug Use History: None Reported - Past Family History Father Family Medical History: No Reported History Mother Family Medical History: COPD, Renal Disease Additional Family Medical History / Comment(s): MITRAL STENOSIS Medications and Allergies Home Medications Medication Instructions Recorded Confirmed Type Aspirin [Adult Low Dose Aspirin EC] 81 mg PO BID 10/04/19 10/03/20 History lisinopriL [Zestril] 10 mg PO DAILY 10/04/19 10/03/20 History Ascorbic Acid [Vitamin C] 500 mg PO DAILY 04/25/20 10/03/20 History Insulin Regular, Human [NovoLIN R] 12 unit SQ TID-W/MEALS 04/25/20 10/03/20 History Melatonin 2mg 2 mg PO HS PRN 04/25/20 10/03/20 History Silver Sulfadiazine [SSD 1% Cream] 1 applic TOPICAL BID 04/25/20 10/03/20 History Vitamin B Complex 1 tab PO DAILY 04/25/20 10/03/20 History Insulin NPH Hum/Reg Insulin Hm 60 unit SQ BID 04/26/20 10/03/20 History [NovoLIN 70-30 100 UNIT/ML VIAL] Furosemide [Lasix] 20 mg PO DAILY 90 Days #90 tab 04/27/20 10/03/20 Rx Cholecalciferol [Vitamin D3] 400 units PO DAILY 10/03/20 10/03/20 History Metoprolol Tartrate [Lopressor] 25 mg PO BID 10/03/20 10/03/20 History Pravastatin Sodium [Pravachol] 10 mg PO HS 10/03/20 10/03/20 History Allergies Allergy/AdvReac Type Severity Reaction Status Date / Time erythromycin base AdvReac Unknown rash,States Verified 10/03/20 12:35 "it does not work on me" hydrocodone [From [place]] AdvReac N/V, Verified 10/03/20 12:35 ITCHING, "TONGUE FEELS THICK" demerol Allergy Severe Anaphylaxis Uncoded 10/03/20 12:35 darvocet Allergy Confusion Uncoded 10/03/20 12:35 Surgical - Exam Vital Signs Temp Pulse Resp BP Pulse Ox 98.5 F 84 16 142/86 97 10/03/20 12:50 10/03/20 12:50 10/03/20 12:50 10/03/20 12:50 10/03/20 12:50 - General well developed, well nourished, no distress, obese - Eyes PERRL - ENT no hearing loss - Neck no masses - Respiratory normal expansion, normal respiratory effort - Cardiovascular Rhythm: regular - Abdomen Huge pannus, nontender Abdomen: soft, non tender - Neurologic normal coordination, normal sensation - Musculoskeletal normal gait, normal posture - Psychiatric oriented to time, oriented to person, oriented to place, speech is normal, memory intact Results - Labs 10/05/20 08:41 10/06/20 07:14 Abnormal Lab Results - Last 24 Hours (Table) 10/05/20 10/05/20 10/05/20 Range/Units 11:53 17:40 20:56 Sodium (137-145) mmol/L Chloride (98-107) mmol/L Glucose (74-99) mg/dL POC Glucose (mg/dL) 145 H 223 H 211 H (75-99) mg/dL Calcium (8.4-10.2) mg/dL AST (14-36) U/L Total Protein (6.3-8.2) g/dL Albumin (3.5-5.0) g/dL 10/06/20 10/06/20 Range/Units 07:14 07:46 Sodium 135 L (137-145) mmol/L Chloride 108 H (98-107) mmol/L Glucose 133 H (74-99) mg/dL POC Glucose (mg/dL) 124 H (75-99) mg/dL Calcium 8.2 L (8.4-10.2) mg/dL AST 41 H (14-36) U/L Total Protein 5.2 L (6.3-8.2) g/dL Albumin 2.3 L (3.5-5.0) g/dL Diabetes panel 10/06/20 Range/Units 07:14 Sodium 135 L (137-145) mmol/L Potassium 4.6 (3.5-5.1) mmol/L Chloride 108 H (98-107) mmol/L Carbon Dioxide 27 (22-30) mmol/L BUN 13 (7-17) mg/dL Creatinine 0.81 (0.52-1.04) mg/dL Glucose 133 H (74-99) mg/dL Calcium 8.2 L (8.4-10.2) mg/dL AST 41 H (14-36) U/L ALT 13 (4-34) U/L Alkaline Phosphatase 122 (38-126) U/L Total Protein 5.2 L (6.3-8.2) g/dL Albumin 2.3 L (3.5-5.0) g/dL Calcium panel 10/06/20 Range/Units 07:14 Calcium 8.2 L (8.4-10.2) mg/dL Albumin 2.3 L (3.5-5.0) g/dL Pituitary panel 10/06/20 Range/Units 07:14 Sodium 135 L (137-145) mmol/L Potassium 4.6 (3.5-5.1) mmol/L Chloride 108 H (98-107) mmol/L Carbon Dioxide 27 (22-30) mmol/L BUN 13 (7-17) mg/dL Creatinine 0.81 (0.52-1.04) mg/dL Glucose 133 H (74-99) mg/dL Calcium 8.2 L (8.4-10.2) mg/dL Adrenal panel 10/06/20 Range/Units 07:14 Sodium 135 L (137-145) mmol/L Potassium 4.6 (3.5-5.1) mmol/L Chloride 108 H (98-107) mmol/L Carbon Dioxide 27 (22-30) mmol/L BUN 13 (7-17) mg/dL Creatinine 0.81 (0.52-1.04) mg/dL Glucose 133 H (74-99) mg/dL Calcium 8.2 L (8.4-10.2) mg/dL Total Bilirubin 1.0 (0.2-1.3) mg/dL AST 41 H (14-36) U/L ALT 13 (4-34) U/L Alkaline Phosphatase 122 (38-126) U/L Total Protein 5.2 L (6.3-8.2) g/dL Albumin 2.3 L (3.5-5.0) g/dL - Imaging CT scan - abdomen: report reviewed, image reviewed CT scan - pelvis: report reviewed, image reviewed Assessment and Plan Assessment: Impression: Nominal pain, nonneurologic. Possible left ureteral stone, indeterminate Recommendations: Based on the appearance of the CAT scan I'm not convinced the calcification is even a left ureteral stone. There is no hydronephrosis, hematuria nor physical findings consistent with a stone. At this point in time even if it were a stone it is so small it should pass. I do not think any urologic intervention or follow-up is needed unless she were to develop blood in the urine severe flank pain consistent with a stone.
--- NOTE | 2020-10-06 11:25 | PN ---
PROGRESS NOTE DATE OF SERVICE: 10/06/2020 Patient is a 65-year-old pleasant white female admitted to hospital with abdominal distention and mild ascites with anterior abdominal wall significant edema. As a part of workup she had attempted paracentesis but not successful because there was no significant amount of fluid that could be removed. In the meantime, she was started on diuretics with Lasix 40 mg twice daily and she continues to remain the same. She continues to complain of anterior abdominal wall swelling and itching. She was also noted to have elevated CA-125 and SENIOR BENEFITS ANALYST was consulted yesterday. PHYSICAL EXAMINATION: She appears comfortable. VITAL SIGNS: Blood pressure 147/78, pulse rate 76, temperature 98.2. HEENT: Examination unremarkable. Conjunctivae pink, sclerae anicteric. Oral cavity no lesions. NECK: No JVD. No lymph node enlargement. CHEST was clear to auscultation. HEART: Regular rate and rhythm. ABDOMEN: Obese. Significant amount of anterior anterior abdominal wall edema, more in the pelvic area. EXTREMITIES: 1+ pedal edema. SKIN: No rashes. NEURO: She is alert and oriented x3. No focal deficits. LABS: From today CBC is not available. Basic metabolic panel is within normal limits. BUN 13, creatinine 0.81. Hepatitis serologies for B and C were negative. IMPRESSION: 1. Severe anterior abdominal wall edema secondary to hypoalbuminemia. Abdominal ultrasound showed minimal amount of ascites, not enough to do paracentesis for diagnostic purposes. The patient presently on Lasix 40 mg twice daily. 2. Mild thrombocytopenia and hypoalbuminemia. Possibility of underlying chronic liver disease cannot be excluded. The patient does have a longstanding history of diabetes mellitus and hypertension and possibility of fatty liver disease needs to be considered. 3. Elevated CA-125. BLANKET WINDER OPERATOR has been consulted. RECOMMENDATIONS: 1. Continue current dose of diuretics. 2. Low-salt diet. 3. Monitor labs closely. 4. We will follow with you. Thank you for this consultation. MMODL / IJN: [id number] /
[2020-10-06 11:54] LABS: % Iron Saturation 20.15 (12.00-45.00)
[2020-10-06 12:01] LABS: Protein, Total 4.8 g/dL (6.2-8.2)
--- NOTE | 2020-10-06 12:09 | P.PN ---
Progress Note - Text Progress Note Date: 10/06/20 Patient is doing fairly well. Her panniculitis is stable. On exam vital signs are stable. Abdomen soft. There is a 1 large well-formed panniculus. Patiently discharged home per medicine. She'll follow myself in one week.
--- NOTE | 2020-10-06 12:28 | PN ---
PROGRESS NOTE DATE OF SERVICE: 10/05/2020 65-year-old white female was admitted with severe cellulitis and ascites in the abdomen and severe constipation. History of diabetes, hypertension, chronic kidney disease, COPD. Remains on IV Kefzol for abdominal erythema and swelling in the lower pannus which is severe in nature. Heart rate 60s, blood pressure 120s over 50s, O2 97% on room air. White count 5.3, platelets 133, creatinine 0.75, AST 45. The ultrasound did not show any significant ascites that they could drain. She is a morbidly obese white female in no acute distress, sitting in chair. CARDIOVASCULAR: S1, S2. Lungs clear. Heart rate S1, S2. Abdomen with diffuse tenderness, severe anasarca. Abdominal apron with a pannus infection. Neurologic cranial nerves are intact. ASSESSMENT: 1. Abdominal cellulitis. 2. Ascites. 3. Diabetes. 4. Hypertension. 5. Obesity. Continue with Kefzol, change to Keflex at time of discharge. WELDER/FABRICATOR has been consulted for tomorrow as well as a pelvic ultrasound. MMODL / IJN: [id number] /
[2020-10-06 12:54] LABS: Glucose,Whole Blood 169 mg/dL (75-99)
--- NOTE | 2020-10-06 14:52 | P.PN ---
Progress Note - Text Progress Note Date: 10/06/20 I have reviewed pelvic ultrasound report. Only notation is that the cervix appears prominent but no pelvic masses or pelvic fluid is noted. At this point, no further gynecologic intervention is needed during this admission. Again I am happy to follow-up with her in the office to facilitate a referral to INTERIOR PAINTER oncology. If it is felt that she should be transferred there sooner, case management may need to be involved to facilitate transfer. Thank you for this consultation.
[2020-10-06 17:33] LABS: Glucose,Whole Blood 149 mg/dL (75-99)
--- NOTE | 2020-10-06 18:46 | PN ---
PROGRESS NOTE DATE OF SERVICE: 10/06/2020 REASON FOR FOLLOWUP: Abdominal wall cellulitis. INTERVAL HISTORY: The patient is currently afebrile. The patient is breathing comfortably. Denies having any chest pain or shortness of breath. Occasional cough. Did have significant swelling of the abdominal wall, but redness has decreased. No diarrhea. PHYSICAL EXAMINATION: Blood pressure 143/79 with a pulse of 66, temperature 98.6. She is 95% on room air. General description is an elderly female up in the chair in no distress. RESPIRATORY SYSTEM: Unlabored breathing. Clear to auscultation anteriorly. HEART: S1, S2. Regular rate and rhythm. ABDOMEN: Soft. Mild distention. No guarding or rigidity. LABS: BUN of 13, creatinine 0.81. DIAGNOSTIC IMPRESSION AND PLAN: Patient admitted to hospital with multiple symptoms, including abdominal wall swelling and cellulitis, and there was a question of ascites. Ultrasound was negative. The patient is currently covered with cefazolin; to continue while monitoring her clinical course closely. Continue with supportive care. MMODL / IJN: [id number] /
[2020-10-06] MEDS: PRAVASTATIN SODIUM 20 MG TAB PO SCH ×2 (20:10→21:53)
[2020-10-06 20:41] LABS: Glucose,Whole Blood 148 mg/dL (75-99)
[2020-10-06 21:50] LABS: Glucose,Whole Blood 137 mg/dL (75-99)
--- NOTE | 2020-10-06 23:21 | PN ---
PROGRESS NOTE A 65-year-old white female with cellulitis of the pannus, significant nature of the abdomen. Gynecology found nothing wrong with her. Pelvic ultrasound. Abdominal wall cellulitis continues to get better. Significant swelling. Abdominal wall redness has decreased. Lasix has been increased. Apparently Urology cleared her from her ureteral stone. Blood pressure 140s over 70s, pulse 60s, temperature 98.6, room-air 95%. Lungs are clear. Heart: S1, S2. Abdomen is distended significantly in the lower pannus. A lot of bubbling and redness and warmth to the tissue, but it is improving. BUN is 13, creatinine 0.81. Abdominal swelling, cellulitis, pannus, possible ascites. Cefazolin. Continue to monitor on cefazolin. Switch to Keflex and send her home when cleared by Dr. Yeung. MMODL / IJN: [id number] /
[2020-10-07] MEDS: SODIUM CHLORIDE 0.9% 1,000 ML IV SCH ×2 (00:38→10:09)
[2020-10-07 06:17] LABS: Basophils % (A) 1 %; Eosinophils # (A) 0.2 k/uL (0-0.7); Eosinophils % (A) 4 %; HCT 31.7 % (34.0-46.0); HGB 10.7 gm/dL (11.4-16.0); Lymphocytes # (A) 1.3 k/uL (1.0-4.8); Lymphocytes % (A) 24 %; MCH 31.9 pg (25.0-35.0); MCHC 33.7 g/dL (31.0-37.0); MCV 94.5 fL (80.0-100.0); Mean Platelet Volume 7.9; Monocytes # (A) 0.5 k/uL (0-1.0); Monocytes % (A) 10 %; Neutrophils % (A) 58 %; Platelet Count 148 k/uL (150-450); RBC 3.36 m/uL (3.80-5.40); RDW 13.6 % (11.5-15.5); WBC 5.3 k/uL (3.8-10.6)
[2020-10-07 06:24] LABS: Albumin 2.3 g/dL (3.5-5.0); Calcium 8.2 mg/dL (8.4-10.2); Potassium 4.1 mmol/L (3.5-5.1); Total Bilirubin 0.9 mg/dL (0.2-1.3); Total Protein 5.1 g/dL (6.3-8.2)
[2020-10-07 06:56] VITALS: RESP 18; TEMP 98.1
[2020-10-07 07:59] LABS: Glucose,Whole Blood 95 mg/dL (75-99)
[2020-10-07 08:24] VITALS: BP 125/71; PULSE 79
[2020-10-07] MEDS: FUROSEMIDE 40 MG TAB PO SCH (08:37)
[2020-10-07] MEDS: ASPIRIN 81 MG PO SCH (08:37)
[2020-10-07] MEDS: METOPROLOL TARTRATE 25 MG TAB PO SCH (08:37)
[2020-10-07] MEDS: lisinopriL 10 MG TAB PO SCH (08:38)
[2020-10-07] MEDS: INSULIN REGULAR 100 UNIT/ML VIAL SQ SCH (08:40)
[2020-10-07] MEDS: INSULN ASP PRT/INSULIN ASPART 100 UNIT/ML 10 ML VIAL SQ SCH (08:44)
--- NOTE | 2020-10-07 11:19 | P.PN ---
Progress Note - Text Progress Note Date: 10/07/20 Patient name stable. Her panniculitis has remained unchanged. She has minimal plates abdominal pain. Patiently discharged home per Dr. Borges. She'll follow-up in the office after discharge for possible constipation for sleeve gastrectomy for morbid obesity. Her BMI 62.
[2020-10-07 12:58] LABS: Glucose,Whole Blood 131 mg/dL (75-99)
--- NOTE | 2020-10-07 15:13 | DS ---
DISCHARGE SUMMARY This patient was admitted with severe constipation and severe infection to the pannus and lower abdomen area with cellulitis with ascites found on CT scan. GI saw her as well as Gynecology. She thought she had an elevated CEA secondary to elevated inflammation levels. She was started on IV cefazolin while in the hospital, switched to oral Keflex as an outpatient. Nothing serous was found on her. She will possibly need lap band surgery with possible panniculectomy down in [place] somewhere or follow up with gastric sleeve with Dr. Carvalho. We increased her Lasix from 40 daily to b.i.d., and we switched her from IV Kefzol to Keflex 500 t.i.d. to go home with. ASSESSMENT: 1. Diabetes mellitus. 2. Elevated CA-125. 3. Hypertension. 4. Ascites. 5. Severe cellulitis of the pannus and abdomen area. HOME MEDICINES: 1. Keflex 500 t.i.d. 2. Lasix 40 b.i.d. 3. Zestril 10 mg daily. 4. Aspirin 81 mg daily. 5. Silver sulfadiazine topically b.i.d. to the legs, to the abdomen. 6. Vitamin B complex daily. 7. Melatonin 2 mg p.r.n. 8. Continue her home insulin of Novolin 70/30, units b.i.d. 9. Novolin R 12 units subcutaneously t.i.d. 10.Pravachol 10 mg daily. 11.Lopressor 25 b.i.d. Follow up in a week. MMODL / IJN: [id number] /
[2020-10-07] MEDS ORDERED: CEPHALEXIN 500 MG CAP PO SCH (16:00)
--- NOTE | 2020-10-08 12:53 | PN ---
PROGRESS NOTE DATE OF PROGRESS NOTE: October 07, 2020. The patient is a 65-year-old pleasant white female admitted to the hospital with abdominal distention and severe abdominal wall edema for the last few days duration. She was started on antibiotics for abdominal wall cellulitis and Dr. Yeung following the patient closely. She is also on Lasix 40 mg twice daily for abdominal wall edema and she is feeling much better today. Her urine output has increased. Abdominal wall swelling is improving. Overall she is feeling better. She still has some abdominal distention. She was seen by [facility] PROJECTION[facility] for elevated CA-125 and pelvic ultrasound was negative. They recommended outpatient evaluation by Surgical Oncology. PHYSICAL EXAMINATION: She appears comfortable. No apparent distress. Vital signs are stable. Blood pressure 133/86, pulse rate 82 per minute and afebrile. HEENT EXAMINATION: Unremarkable. Conjunctivae pink. Sclerae anicteric. Oral cavity no lesions. NECK: No JVD or lymph node enlargement. CHEST: Clear to auscultation. HEART: Regular rate and rhythm. ABDOMEN: Was soft. It was obese. There was significant edema noted in the suprapubic area as well as in the left lower quadrant area, which is gradually improving. It was nontender. EXTREMITIES: Trace pedal edema. NEURO: She is alert and oriented x3. No focal deficits. LABS: From October 07, CBC with differential count is within normal limits. BUN is 10 and creatinine 0.9. IMPRESSION: 1. Severe abdominal wall edema secondary to hypoalbuminemia, presently on Lasix 40 mg twice daily and gradually improving. 2. Minimal ascites, not enough for paracentesis for diagnostic purposes. 3. Abdominal wall cellulitis, on broad-spectrum antibiotics. 4. Elevated CA-125. Pelvic ultrasound did not show any masses and she is status post total abdominal hysterectomy and bilateral oophorectomy. THE[facility] PROJECTIONIST following the patient closely. RECOMMENDATION: 1. Continue with diuretics 40 mg twice daily. 2. Continue antibiotics. 3. Increase ambulation. 4. She can be discharged home from GI standpoint and she can follow up in our office as needed. Thank you for this consultation. MMJOSEPL / NAYA: [id number] /
[2020-10-08 14:02] LABS: Albumin 2.22 g/dL (3.80-4.90); Gamma Globulin 1.07 g/dL (0.70-1.50)
--- NOTE | 2020-10-14 23:12 | CDI ---
Documentation Clarification Form Date: 10/15/2020 From: Noel Osorio Phone: If you have a question about this query, please contact Misty Titus, Agriculture Instructor at [phone] between 8am and 5pm. Admit Date: 10/05/2020 08:58:00 AM Patient Name: Amanda Paredes Visit Number: [id number] Discharge Date: 10/07/2020 01:12:00 PM ATTENTION: The Clinical Documentation Specialists (CDI) and [facility] Coding Staff appreciate your assistance in clarifying documentation. Please respond to the clarification below the line at the bottom and electronically sign. The CDI & [facility] Coding staff will review the response and follow-up if needed. Please note: Queries are made part of the Legal Health Record. If you have any questions, please contact the author of this message via ITS. Dr. Nadir Marsh MD., The patient presented with Severe cellulitis of the pannus and abdomen area. History/Risk Factors:Diabetes mellitus, HTN Radiology findings: Small amount of free fluid within the abdomen Vital Signs: 10/04/20 08:30 98.9 F 78 16 122/75 96 Treatment: Abdominal wall cellulitis, on broad-spectrum antibiotics. 65-year-old white female with cellulitis of the pannus, significant nature of the abdomen.Gynecology found nothing wrong with her.Pelvic ultrasound.Abdominal wall cellulitis continues to get better.Significant swelling.Abdominal wall redness has decreased.Lasix has been increased.Apparently Urology cleared her from her ureteral stone In your professional opinion, can you please clarify Cellulitis related to DM type 2 YES NO Other, please specify Unable to determine MTDD
--- NOTE | 2020-10-15 17:19 | PN ---
PROGRESS NOTE Cellulitis is related to diabetes mellitus. MMODL / IJN: [id number] /
== END 2020-10-07 13:12 | disposition home or self-care (01) | DRG 638 ==
LOC: 6PED 12:12 → OBSVTOIN 10-05 08:58
PROVIDERS: ADMIT Family Medicine; ATTEND Family Medicine
DX: E11.628 Type 2 diabetes mellitus with other skin complications (principal); L03.311 Cellulitis of abdominal wall; Z68.44 Body mass index [BMI] 60.0-69.9, adult; R18.8 Other ascites; N20.1 Calculus of ureter; I12.9 Hypertensive chronic kidney disease with stage 1 through stage 4 chronic kidney disease, or unspecified chronic kidney disease; N18.2 Chronic kidney disease, stage 2 (mild); J44.9 Chronic obstructive pulmonary disease, unspecified; K59.00 Constipation, unspecified; D69.6 Thrombocytopenia, unspecified; E66.01 Morbid (severe) obesity due to excess calories; E11.22 Type 2 diabetes mellitus with diabetic chronic kidney disease; E78.5 Hyperlipidemia, unspecified; E88.09 Other disorders of plasma-protein metabolism, not elsewhere classified; M79.3 Panniculitis, unspecified; Z79.4 Long term (current) use of insulin; Z79.82 Long term (current) use of aspirin; Z79.899 Other long term (current) drug therapy; Z82.5 Family history of asthma and other chronic lower respiratory diseases; Z90.49 Acquired absence of other specified parts of digestive tract; Z90.711 Acquired absence of uterus with remaining cervical stump; Z82.49 Family history of ischemic heart disease and other diseases of the circulatory system; Z87.442 Personal history of urinary calculi; Z88.1 Allergy status to other antibiotic agents; Z88.5 Allergy status to narcotic agent; Z88.8 Allergy status to other drugs, medicaments and biological substances; Z98.891 History of uterine scar from previous surgery
CPT/HCPCS: 71046; 74176; 76705; 76830; 76856; 80053; 81001; 83036; 83540; 83550; 83690; 83880; 84165; 84484; 85025; 85027; 85610; 86304; 86706; 86803; 87340; 93005